=== PATIENT | male | born 1955 | race Caucasian/White ===

== ENCOUNTER 2017-12-25 14:22 | Emergency (ER) | payer BC ==
[~2017-12-25] VITALS: Ht 177.8 cm; Wt 95.8 kg
[~2017-12-25 14:22] MED LIST: ALFU10TA2 PO; ASPI81TA28 PO; CHOL1000 PO; HYG/25 PO; LISI40TA PO; MULT-106 PO; RXC5 PO; SENNTAB23 PO; SITA50TA5 PO; TURM1CAP4 PO
[2017-12-25] MEDS ORDERED: MoRPHine SULFATE 10 MG/ML CARP/VIAL IV STA ×2 (14:28→16:18)
[2017-12-25] MEDS ORDERED: SODIUM CHLORIDE 0.9% 1000ML 1,000 ML IV STA (14:28)
[2017-12-25 14:30] VITALS: TEMP 36.9; Ht 177.8 cm; Wt 95.8 kg
--- NOTE | 2017-12-25 14:42 | EMERGENCY ROOM VISIT NOTE ---
History Report prepared by Chauncey: [place] Under the Supervision of: Dr. Spencer Martinez M.D. First contact with patient: 14:26 Chief Complaint: BACK PAIN Stated Complaint: BACK PAIN History of Present Illness The patient is a 62 year old male who presents to the Emergency Room with complaints of severe back pain that began this morning. The patient reports going through back surgery for spinal stenosis December 16 of this year and has been progressively recovering until today when the pain worsened. The pain worsened while sitting on the couch and then radiated to the anterior aspect of the proximal legs. The patient states he has not done anything out of the ordinary and has been walking normally as well. The patient says he takes 1 oxycodone every 4 hours but they do not help much. The last oxycodone he took was at 1000 today. The patient's surgeon is Dr. Aaron. The patient denies nausea , vomiting, diarrhea, fevers, chills, weakness, numbness, tingling, or problems with bowel movements. Source of History: patient Onset: This morning Position: back Symptom Intensity: severe Timing: worsening Associated Symptoms: No fevers, No chills, No chest pain, No nausea, No vomiting, No diarrhea, No urinary symptoms, No weakness, No numbness Review of Systems See HPI for pertinent positives and negatives. A total of ten systems were reviewed and were otherwise negative. Past Medical & Surgical Medical Problems: (1) Blood glucose elevated (2) Lumbar stenosis with neurogenic claudication Family History Patient reports no known family medical history. Social History Smoking Status: Never Smoker Marital Status: Housing Status: lives with family Occupation Status: employed Current/Historical Medications Scheduled Aspirin (Samy Aspirin Ec Low Dose), 81 MG PO DAILY Cyclobenzaprine Hcl (Flexeril), 10 MG PO HS Lisinopril (Prinivil), 40 MG PO DAILY Sitagliptin-Metformin Hcl (Janumet), 1 TAB PO BID Scheduled PRN Acetaminophen (Tylenol), 500 MG PO UD PRN for Pain Oxycodone HCl (Oxycodone HCl), 5 MG PO Q4 PRN for Moderate Pain Oxycodone Ir (Roxicodone Ir), 1-2 TAB PO Q4H PRN for Severe Pain Allergies Coded Allergies: No Known Allergies (Unverified , 12/25/17) Physical Exam Vital Signs Date Time Temp Pulse Resp B/P (MAP) Pulse Ox O2 Delivery O2 Flow Rate FiO2 12/25/17 19:45 98 15 138/80 97 12/25/17 17:55 104 15 144/89 96 Room Air 12/25/17 15:55 105 10 168/91 95 Room Air 12/25/17 15:00 107 12/25/17 14:57 105 12 176/93 95 Room Air 12/25/17 14:30 36.9 110 18 165/94 100 Room Air Physical Exam GENERAL: Awake, alert, uncomfortable, in NAD. HENT: Normocephalic, atraumatic. Oropharynx unremarkable. Mucous membranes are dry. EYES: Normal conjunctiva. Sclera non-icteric. NECK: Supple. No nuchal rigidity. FROM. No JVD. RESPIRATORY: Clear to auscultation. CARDIAC: Regular rate, normal rhythm. Extremities warm and well perfused. Pulses equal. ABDOMEN: Soft, non-distended. No tenderness to palpation. No rebound or guarding. No masses. RECTAL: Deferred. MUSCULOSKELETAL: Chest examination reveals no tenderness. There is no CVA tenderness to palpation. No joint edema. Incision site clean, dry, and intact without erythema or warmth. No crepitus. Mild edema with mild ttp, which patient and report has been the same since his surgery. LOWER EXTREMITIES: Calves are equal size bilaterally and non-tender. No edema. No discoloration. NEURO: Normal sensorium. No sensory or motor deficits noted. 5/5 strength and SILT bilaterally. SKIN: No rash or jaundice noted. Medical Decision & Procedures ER Provider Diagnostic Interpretation: Radiology results as stated below per my review and radiologist interpretation: ABDOMEN AND PELVIS CT WITH IV CONTRAST HISTORY: Acute low back pain with history of recent lumbar spine fusion s/p recent lumber decompression/fusion, pain, r/o infection TECHNIQUE: Multiaxial CT images of the abdomen and pelvis were performed following the use of intravenous contrast. A dose lowering technique was utilized adhering to the principles of ALARA. COMPARISON STUDY: CT lumbar spine of same day, spot fluoroscopic images of the lumbar spine 12/16/2017. FINDINGS: Mild dependent subsegmental bibasilar atelectasis. No pneumatosis or pneumoperitoneum. Imaged inferior cardiac chambers are unremarkable. Gallbladder is mildly distended. The liver, spleen, pancreas and right adrenal gland are unremarkable. Mild thickening about the left adrenal gland. Hypodense lesions about the bilateral kidneys measuring up to 12 mm in the right suggest probable renal cysts. There is a 10 mm hypodense lesion about the inferior pole right kidney with internal linear complexity suggesting a possible enhancing internal septation, image 218 series 3. Mild nonspecific bilateral perinephric stranding. Mild circumferential wall thickening of the bladder. Prostamegaly. Small fat filled left inguinal hernia. Moderate calcification of the aorta without aneurysm. IVC is unremarkable. No pathologically enlarged lymph nodes. No bowel obstruction or focal bowel wall thickening. Moderate stool volume about the rectum. Mild layering free pelvic fluid within the dependent pelvis. Mild colonic diverticulosis without diverticulitis. Terminal ileum is unremarkable. The appendix is not definitively seen. No mesenteric inflammatory changes. Postoperative changes are redemonstrated compatible with recent laminectomy at L3 and L4. Additionally, posterior interbody amber and screw fusion hardware extends from L2-L5. Discectomy changes at L3-L4 and L4-L5. There is no evidence of hardware fracture or loosening. Fluid complex collection containing internal foci of air noted about the deep operative bed measuring up to 10.1 cm in length. IMPRESSION: 1. Postoperative changes of the lumbar spine with associated fluid collection, better characterized and described on CT lumbar spine of same day. 2. Trace free pelvic fluid of unknown etiology. 3. No bowel obstruction or focal bowel wall thickening. 4. Renal cysts with suggested complex cyst of the inferior pole right kidney measuring 10 mm. This could be further characterized with outpatient nonemergent CT renal protocol study. 5. Prostamegaly. Electronically signed by: Davidson Ellsworth M.D. 12/25/2017 6:01 PM Dictated Date/Time: 12/25/2017 5:52 PM LUMBAR SPINE WITHOUT HISTORY: 62 years-old Male s/p decopmpressin/fusion, pain acute low back pain with prior decompression/fusion of the lumbar spine COMPARISON: CT abdomen and pelvis of same day, lumbar spine spot fluoroscopic images 12/16/2017, lumbar spine MR 11/02/2017 TECHNIQUE: Multiple axial CT images of the lumbar spine were obtained without the use of IV contrast. A dose lowering technique was used consistent with the principals of JAMIE. FINDINGS: Postoperative changes are redemonstrated compatible with recent laminectomy at L3 and L4. Additionally, posterior interbody amber and screw fusion hardware extends from L2-L5. Discectomy changes at L3-L4 and L4-L5. There is no evidence of hardware fracture or loosening. Hardware appears appropriately positioned. No acute fracture or subluxation of the lumbar spine identified. Mild multilevel spondylitic spurring. Mild intervertebral disc space narrowing at T11-T12. Dilation of the central canal and neuroforamina is limited without the use of thecal contrast and also secondary to streak artifact from the aforementioned hardware. Imaged lung bases appear clear. No aortic aneurysm identified. Hypodense lesions about the right kidney suggests renal cysts. Subcutaneous stranding with deep tissue air is noted about the operative bed. Peripherally hyperdense fluid collection about the operative bed extending to the posterior epidural tissues measures up to approximately 4.6 x 8.9 x 10.1 cm containing scattered foci of internal air. There is a separate hypodense subcutaneous fluid collection at the level of L1 measuring approximately 3.1 x 2.0 x 3.0 cm on image 99 series 301. IMPRESSION: 1. Postoperative changes of the lumbar spine compatible with recent L3 and L4 laminectomy with discectomy changes at L3-L4 and L4-L5 and posterior interbody amber and screw fusion at L2-L5. Alignment is satisfactory without evidence of hardware complication. 2. Deep fluid collection about the operative bed containing internal foci of air measures up to 10.1 cm. This is suspicious for a postoperative abscess with seroma or hematoma additional considerations. Correlate with clinical exam and patient history. 3. No acute fracture or subluxation. The above report was generated using voice recognition software. It may contain grammatical, syntax or spelling errors. Electronically signed by: Davidson Ellsworth M.D. 12/25/2017 5:52 PM Dictated Date/Time: 12/25/2017 5:43 PM Laboratory Results 12/25/17 14:53 Red Blood Count 2.86, Mean Corpuscular Volume 86.7, Mean Corpuscular Hemoglobin 29.0, Mean Corpuscular Hemoglobin Concent 33.5, Mean Platelet Volume 9.8, Neutrophils (%) (Auto) 85.3, Lymphocytes (%) (Auto) 8.6, Monocytes (%) (Auto) 5.3, Eosinophils (%) (Auto) 0.3, Basophils (%) (Auto) 0.1, Neutrophils # (Auto) 9.78, Lymphocytes # (Auto) 0.98, Monocytes # (Auto) 0.61, Eosinophils # (Auto) 0.03, Basophils # (Auto) 0.01 12/25/17 14:53 Test 12/25/17 14:53 12/25/17 15:24 White Blood Count 11.46 K/uL (4.8-10.8) Red Blood Count 2.86 M/uL (4.7-6.1) Hemoglobin 8.3 g/dL (14.0-18.0) Hematocrit 24.8 % (42-52) Mean Corpuscular Volume 86.7 fL (80-100) Mean Corpuscular Hemoglobin 29.0 pg (25-34) Mean Corpuscular Hemoglobin Concent 33.5 g/dl (32-36) Platelet Count 332 K/uL (130-400) Mean Platelet Volume 9.8 fL (7.4-10.4) Neutrophils (%) (Auto) 85.3 % Lymphocytes (%) (Auto) 8.6 % Monocytes (%) (Auto) 5.3 % Eosinophils (%) (Auto) 0.3 % Basophils (%) (Auto) 0.1 % Neutrophils # (Auto) 9.78 K/uL (1.4-6.5) Lymphocytes # (Auto) 0.98 K/uL (1.2-3.4) Monocytes # (Auto) 0.61 K/uL (0.11-0.59) Eosinophils # (Auto) 0.03 K/uL (0-0.5) Basophils # (Auto) 0.01 K/uL (0-0.2) RDW Standard Deviation 40.3 fL (36.4-46.3) RDW Coefficient of Variation 12.6 % (11.5-14.5) Immature Granulocyte % (Auto) 0.4 % Immature Granulocyte # (Auto) 0.05 K/uL (0.00-0.02) Red Blood Cell Morphology Unremarkable Anion Gap 8.0 mmol/L (3-11) Est Creatinine Clear Calc Drug Dose 88.5 ml/min Estimated GFR () 94.1 Estimated GFR (Non- 81.2 BUN/Creatinine Ratio 15.1 (10-20) Calcium Level 8.6 mg/dl (8.5-10.1) Total Bilirubin 0.3 mg/dl (0.2-1) Direct Bilirubin 0.1 mg/dl (0-0.2) Aspartate Amino Transf (AST/SGOT) 23 U/L (15-37) Alanine Aminotransferase (ALT/SGPT) 31 U/L (12-78) Alkaline Phosphatase 61 U/L (45-117) Total Protein 6.3 gm/dl (6.4-8.2) Albumin 2.6 gm/dl (3.4-5.0) Lipase 91 U/L (73-393) Urine Color YELLOW Urine Appearance CLEAR (CLEAR) Urine pH >= 9.0 (4.5-7.5) Urine Specific [place] 1.019 (1.000-1.030) Urine Protein NEG (NEG) Urine Glucose (UA) TRACE (NEG) Urine Ketones NEG (NEG) Urine Occult Blood NEG (NEG) Urine Nitrite NEG (NEG) Urine Bilirubin NEG (NEG) Urine Urobilinogen NEG (NEG) Urine Leukocyte Esterase NEG (NEG) Urine WBC (Auto) 1-5 /hpf (0-5) Urine RBC (Auto) 0-4 /hpf (0-4) Urine Hyaline Casts (Auto) 1-5 /lpf (0-5) Urine Epithelial Cells (Auto) 0-5 /lpf (0-5) Urine Bacteria (Auto) NEG (NEG) Laboratory results reviewed by me Medications Administered Medications (Trade) Dose Ordered Sig/Bharati Route Start Time Stop Time Status Last Admin Dose Admin Sodium Chloride 1,000 ml @ 999 mls/hr Q1H1M STAT IV 12/25/17 14:28 12/25/17 15:28 DC 12/25/17 14:28 999 MLS/HR Morphine Sulfate (MoRPHine SULFATE INJ) 6 mg NOW STAT IV 12/25/17 14:28 12/25/17 14:36 DC 12/25/17 14:43 6 MG Morphine Sulfate (MoRPHine SULFATE INJ) 8 mg NOW STAT IV 12/25/17 16:18 12/25/17 16:19 DC 12/25/17 16:25 8 MG Acetaminophen (Tylenol Tab) 1,000 mg NOW STAT PO 12/25/17 19:20 12/25/17 19:22 DC 12/25/17 19:30 1,000 MG Oxycodone HCl (Roxicodone Immediate Rel Tab) 10 mg NOW STAT PO 8/24/18 19:20 12/25/17 19:22 DC 12/25/17 19:30 10 MG Ketorolac Tromethamine (Toradol Inj) 15 mg NOW STAT IV 12/25/17 19:20 12/25/17 19:22 DC 12/25/17 19:31 15 MG ED Course 1427: The patient was evaluated in room B6. A complete history and physical exam was performed. Medical Decision I reviewed the patient's past medical history, medications, and the nursing notes as described above. Differential diagnosis: Etiologies such as musculoskeletal, disc herniation, fracture, aortic disease, metastatic disease, cord compression, discitis, infection, renal colic, gastrointestinal, acute exacerbation of chronic back pain, sciatica, cauda equina, as well as others were entertained. The patient is a 62 y/o gentleman with a pmhx of spinal stenosis s/p decompression/fusion on 12/[address] Rock presents to the emergency department with worsening back pain that occurred today when he was sitting on the cough per HPI. The patient denies any f/c, n/v, weakness, numbness, urinary retention, or bowel incontinence. He reports he has been maintaining his daily walking routine as recommended but denies any over exertion. On arrival the patient is uncomfortable but in NAD, AFVSS. 5/5 strength and SILT BLE. Incision site clean, dry, and intact without erythema or warmth. No crepitus. Mild edema , which patient and report has been the same since his surgery. WBC 11.4 nonspecific. H/H at recent baseline and normocytic. CT demonstrates deep fluid collection adjacent to operative bed containing internal foci of air measures up to 10.1 cm with ddx of postoperative abscess vs seroma vs hematoma. Patient reassessed and feeling improved after IVF hydration and morphine, able to ambulated and sit in chair. Case d/w Dr. Rock, patient's surgeon, and we agree that given the patient is afebrile without systemic symptoms, CT findings unlikely to be infectious at this time. We agree to optimize pain control including one time dose of toradol. Patient will f/u next week as scheduled. Strict return instructions provided. Findings and plan for follow-up reviewed with patient. Patient agreeable and d/c'd per discharge instructions. Medication Reconcilliation Current Medication List: was personally reviewed by me Blood Pressure Screening Patient's blood pressure: Elevated blood pressure Blood pressure disposition: Referred to PCP Consults Time Called: 1924 Consulting Physician: Dr. Rock, Ortho-spine Returned Call: 1924 Imaging reviewed and we agree for continued pain control and outpatient f/u. Strict return instructions for fevers/systemic symptoms. Impression Primary Impression: Lumbar surgical wound fluid collection Additional Impression: Lumbar pain Scribe Attestation The scribe's documentation has been prepared under my direction and personally reviewed by me in its entirety. I confirm that the note above accurately reflects all work, treatment, procedures, and medical decision making performed by me. Departure Information Dispostion Home / Self-Care Prescriptions Oxycodone Ir (Roxicodone Ir) 5 Mg Tab 1-2 TAB PO Q4H Y for Severe Pain, #20 TAB Prov: Spencer Martinez M.D. 12/25/17 Referrals Marcos Roca M.D. (PCP) Adalid Rock,D.O. Patient Instructions Fusion Spinal Posterior Lumbar, Fusion Spinal Recovery, [facility] Additional Instructions Please follow up with your spine surgeon next week as scheduled for re- evaluation. Your pain is likely related to post-operative changes and related fluid collection. Increase your oxycodone to 5-10mg every 4-6 hours as needed for breakthrough pain. Acetaminophen every 4-6 hours scheduled for baseline pain relief. Stool softeners to avoid narcotic associated constipation. Return to the emergency department for worsening symptoms as described in the accompanying instructions such as fevers, worsening pain, or weakness. Problem Qualifiers
[2017-12-25] MEDS ORDERED: OPTIRAY 320 IV PRN (14:45)
[2017-12-25 15:09] LABS: BASO % 0.1 %; BASO ABS # 0.01 K/uL (0-0.2); EOS % 0.3 %; EOS ABS # 0.03 K/uL (0-0.5); HEMATOCRIT 24.8 % (42-52); HEMOGLOBIN 8.3 g/dL (14.0-18.0); IG# 0.05 K/uL (0.00-0.02); LYMPH % 8.6 %; LYMPH ABS # 0.98 K/uL (1.2-3.4); MEAN CELL VOLUME 86.7 fL (80-100); MEAN CORPUSCULAR HGB CONC 33.5 g/dl (32-36); MEAN PLATELET VOLUME 9.8 fL (7.4-10.4); MONO % 5.3 %; MONO ABS # 0.61 K/uL (0.11-0.59); NEUT % 85.3 %; NEUT ABS # 9.78 K/uL (1.4-6.5); PLATELET COUNT 332 K/uL (130-400); RED CELL DISTRIBUTION WIDTH CV 12.6 % (11.5-14.5); RED CELL DISTRIBUTION WIDTH SD 40.3 fL (36.4-46.3); WHITE BLOOD COUNT 11.46 K/uL (4.8-10.8)
[2017-12-25] MEDS ORDERED: SITA50TA5 PO (15:23)
[2017-12-25] MEDS ORDERED: ACET-1256 PO (15:23)
[2017-12-25] MEDS ORDERED: CYCL10TA6 PO (15:23)
[2017-12-25] MEDS ORDERED: ASPI1TAB2 PO (15:23)
[2017-12-25] MEDS ORDERED: LISI40TA PO (15:23)
[2017-12-25] MEDS ORDERED: OXYC-609 PO (15:23)
[2017-12-25 15:25] LABS: ALBUMIN 2.6 gm/dl (3.4-5.0); CALCIUM 8.6 mg/dl (8.5-10.1); CREATININE 0.98 mg/dl (0.60-1.40); POTASSIUM 3.8 mmol/L (3.5-5.1); TOTAL PROTEIN 6.3 gm/dl (6.4-8.2)
--- NOTE | 2017-12-25 17:53 | DIAGNOSTIC IMAGING REPORT ---
LUMBAR SPINE WITHOUT HISTORY: 62 years-old Male s/p decopmpressin/fusion, pain acute low back pain with prior decompression/fusion of the lumbar spine COMPARISON: CT abdomen and pelvis of same day, lumbar spine spot fluoroscopic images 12/16/2017, lumbar spine MR 11/02/2017 TECHNIQUE: Multiple axial CT images of the lumbar spine were obtained without the use of IV contrast. A dose lowering technique was used consistent with the principals of ALARA. FINDINGS: Postoperative changes are redemonstrated compatible with recent laminectomy at L3 and L4. Additionally, posterior interbody amber and screw fusion hardware extends from L2-L5. Discectomy changes at L3-L4 and L4-L5. There is no evidence of hardware fracture or loosening. Hardware appears appropriately positioned. No acute fracture or subluxation of the lumbar spine identified. Mild multilevel spondylitic spurring. Mild intervertebral disc space narrowing at T11-T12. Dilation of the central canal and neuroforamina is limited without the use of thecal contrast and also secondary to streak artifact from the aforementioned hardware. Imaged lung bases appear clear. No aortic aneurysm identified. Hypodense lesions about the right kidney suggests renal cysts. Subcutaneous stranding with deep tissue air is noted about the operative bed. Peripherally hyperdense fluid collection about the operative bed extending to the posterior epidural tissues measures up to approximately 4.6 x 8.9 x 10.1 cm containing scattered foci of internal air. There is a separate hypodense subcutaneous fluid collection at the level of L1 measuring approximately 3.1 x 2.0 x 3.0 cm on image 99 series 301. IMPRESSION: 1. Postoperative changes of the lumbar spine compatible with recent L3 and L4 laminectomy with discectomy changes at L3-L4 and L4-L5 and posterior interbody amber and screw fusion at L2-L5. Alignment is satisfactory without evidence of hardware complication. 2. Deep fluid collection about the operative bed containing internal foci of air measures up to 10.1 cm. This is suspicious for a postoperative abscess with seroma or hematoma additional considerations. Correlate with clinical exam and patient history. 3. No acute fracture or subluxation. The above report was generated using voice recognition software. It may contain grammatical, syntax or spelling errors. Electronically signed by: Davidson Ellsworth M.D. 12/25/2017 5:52 PM Dictated Date/Time: 12/25/2017 5:43 PM
--- NOTE | 2017-12-25 18:02 | DIAGNOSTIC IMAGING REPORT ---
ABDOMEN AND PELVIS CT WITH IV CONTRAST HISTORY: Acute low back pain with history of recent lumbar spine fusion s/p recent lumber decompression/fusion, pain, r/o infection TECHNIQUE: Multiaxial CT images of the abdomen and pelvis were performed following the use of intravenous contrast. A dose lowering technique was utilized adhering to the principles of ALARA. COMPARISON STUDY: CT lumbar spine of same day, spot fluoroscopic images of the lumbar spine 12/16/2017. FINDINGS: Mild dependent subsegmental bibasilar atelectasis. No pneumatosis or pneumoperitoneum. Imaged inferior cardiac chambers are unremarkable. Gallbladder is mildly distended. The liver, spleen, pancreas and right adrenal gland are unremarkable. Mild thickening about the left adrenal gland. Hypodense lesions about the bilateral kidneys measuring up to 12 mm in the right suggest probable renal cysts. There is a 10 mm hypodense lesion about the inferior pole right kidney with internal linear complexity suggesting a possible enhancing internal septation, image 218 series 3. Mild nonspecific bilateral perinephric stranding. Mild circumferential wall thickening of the bladder. Prostamegaly. Small fat filled left inguinal hernia. Moderate calcification of the aorta without aneurysm. IVC is unremarkable. No pathologically enlarged lymph nodes. No bowel obstruction or focal bowel wall thickening. Moderate stool volume about the rectum. Mild layering free pelvic fluid within the dependent pelvis. Mild colonic diverticulosis without diverticulitis. Terminal ileum is unremarkable. The appendix is not definitively seen. No mesenteric inflammatory changes. Postoperative changes are redemonstrated compatible with recent laminectomy at L3 and L4. Additionally, posterior interbody amber and screw fusion hardware extends from L2-L5. Discectomy changes at L3-L4 and L4-L5. There is no evidence of hardware fracture or loosening. Fluid complex collection containing internal foci of air noted about the deep operative bed measuring up to 10.1 cm in length. IMPRESSION: 1. Postoperative changes of the lumbar spine with associated fluid collection, better characterized and described on CT lumbar spine of same day. 2. Trace free pelvic fluid of unknown etiology. 3. No bowel obstruction or focal bowel wall thickening. 4. Renal cysts with suggested complex cyst of the inferior pole right kidney measuring 10 mm. This could be further characterized with outpatient nonemergent CT renal protocol study. 5. Prostamegaly. Electronically signed by: Davidson Ellsworth M.D. 12/25/2017 6:01 PM Dictated Date/Time: 12/25/2017 5:52 PM
[2017-12-25] MEDS ORDERED: ACETAMINOPHEN 500 MG TAB PO STA (19:20)
[2017-12-25] MEDS ORDERED: OXYCODONE HCL IR 5 MG TAB (IMMEDIATE RELEASE) PO STA (19:20)
[2017-12-25] MEDS ORDERED: KETOROLAC TROMETHAMINE 30 MG/ML VIAL IV STA (19:20)
[2017-12-25] MEDS ORDERED: OXYC-90 PO (19:27)
[2017-12-25 19:45] VITALS: BP 138/80; PULSE 98; O2SAT 97
[2017-12-27] MEDS ORDERED: MULT-662 PO (14:46)
[2017-12-27] MEDS ORDERED: HYG25 PO (14:46)
[2017-12-27] MEDS ORDERED: MAGN200T3 PO (14:46)
[2017-12-27] MEDS ORDERED: ALFU10TA2 PO (14:46)
[2017-12-27] MEDS ORDERED: PRED20TA PO (16:03)
== END 2017-12-25 19:45 | disposition home or self-care (01) ==
LOC: EDBD 14:22 → C.EDB 14:23
DX: T81.89XA Other complications of procedures, not elsewhere classified, initial encounter (principal); X58.XXXA Exposure to other specified factors, initial encounter; M54.5 Low back pain; Z79.82 Long term (current) use of aspirin

== ENCOUNTER 2019-03-23 09:31 | Inpatient (IN) ==
--- NOTE | 2019-03-08 12:03 | PAT Medication Instructions ---
Medication Instructions Date of Service March 08, 2019 Home Medications Medication Instructions Recorded chlorthalidone 25 mg tablet 12.5 mg PO QAM #90 tab 12/27/18 metoprolol tartrate 25 mg tablet 12.5 mg PO BID #60 tab 12/28/18 aspirin 81 mg tablet,delayed release 81 mg PO QAM alfuzosin 10 mg PO QAM sitagliptin-metformin 1 tab PO BID chlorthalidone 25 mg tablet 12.5 mg PO QAM metoprolol tartrate 25 mg tablet 12.5 mg PO BID magnesium 250 mg (as magnesium oxide) tablet 250 mg PO QAM multivitamin tablet 1 tab PO QAM ASK your prescriber and surgeon aspirin 81 mg tablet,delayed release 81 mg PO QAM DO NOT take the morning of surgery sitagliptin-metformin 1 tab PO BID chlorthalidone 25 mg tablet 12.5 mg PO QAM magnesium 250 mg (as magnesium oxide) tablet 250 mg PO QAM multivitamin tablet 1 tab PO QAM Take morning of surgery With a small sip of water, OTHERWISE NOTHING TO EAT OR DRINK AFTER MIDNIGHT: alfuzosin 10 mg PO QAM metoprolol tartrate 25 mg tablet 12.5 mg PO BID Take evening before surgery sitagliptin-metformin 1 tab PO BID metoprolol tartrate 25 mg tablet 12.5 mg PO BID Other Notes If you have any questions please call us at [phone] or [phone] or [phone] or [phone]
--- NOTE | 2019-03-09 09:03 | Anesthesiology Consultation ---
Date of Service March 09, 2019 Assessment & Plan (1) Encounter for pre-operative examination: - Awaiting review preop testing (labs). - Surgery was originally scheduled for 12/29/18. Preop EKG revealed ST/TWA, consider inferior ischemia. Patient was scheduled for DSE by PCP but unable to be performed due to resting systolic BP in the 200's. Echo was markedly abnormal. Patient subsequently had metoprolol added for better BP control and had unremarkable exercise stress 01/2019. Per patient, monitoring BP's at home closely with baseline in the 130's/80's on current regimen. Note faxed to PCP regarding optimization. Awaiting optimization response from PCP ([facility]). - Check BSG AM DOS - ASA instructions per surgeon/prescriber. Chart Review Chart Review: Patient seen in Pre Admission Testing Teaching & Discussion Pre-Anesthesia Teaching/Discussion Notes: Instructed NPO after midnight before surgery,except medications with 15 cc of water. Medication instructions provided according to the PAT guidelines. History Surgery Operation Date: 03/23/19 10:25 Proposed Procedures p Posterior Fusion Instrumentation - Adalid Rock DO Height/Weight Height: 5 ft 10 in Weight: 98.6 kg Allergies Allergy/AdvReac Type Severity Reaction Status Date / Time No Known Drug Allergies Allergy Unknown Verified 03/03/19 10:03 Medications Home Medications Medication Instructions Recorded Confirmed Last Taken aspirin 81 mg tablet,delayed 81 mg PO QAM #90 tab 12/10/18 03/03/19 Unknown release alfuzosin 10 mg PO QAM 12/20/18 03/03/19 Unknown sitagliptin-metformin 1 tab PO BID 12/20/18 03/03/19 Unknown chlorthalidone 25 mg tablet 12.5 mg PO QAM #90 tab 12/27/18 03/03/19 Unknown metoprolol tartrate 25 mg tablet 12.5 mg PO BID #60 tab 12/28/18 03/03/19 Unknown magnesium 250 mg (as magnesium 250 mg PO QAM tab 01/04/19 03/03/19 Unknown oxide) tablet multivitamin tablet 1 tab PO QAM 01/04/19 03/03/19 Unknown Past Medical History Medical History Hx of pyloric stenosis s/p surgical repair Type 2 diabetes mellitus NIDDM Sleep apnea inconclusive sleep study, no device prescribed Lumbar radiculopathy Dyslipidemia Carotid artery plaque Mild nonobstructive plaque noted on 2014 carotid doppler Anemia Hearing loss Chronic osteoarthritis Enlarged prostate with lower urinary tract symptoms (LUTS) Hypertension Obesity Exercise / Class Metabolic Activity II 4-5 Yardwork/Stairs/Walk up hill (one flight of stairs (no chest pain, no SOB)) Past Family History Family History Father Coronary heart disease Myocardial infarction Diabetes Heart disease Sister Family history of gallbladder disease FHx: diabetes mellitus Diabetes Other Family history of kidney stones Past Surgical History Surgical History History of gastric surgery For pyloric stenosis History of lithotripsy WITH CYSTOSCOPY/STENT History of lumbar fusion L2-L5 History of partial knee replacement LEFT Hx of colonoscopy X 3 Past Anesthesia History No Hx of Anesthesia Complications and No Family Hx of Anesthesia Complications History of PONV No Hx of PONV and No Hx of Motion Sickness Social History Smoking Status: Never smoker Do You Dip or Chew Tobacco: No Hx Alcohol Use: No Hx Substance Use: No Review of Systems Rare reflux. Patient denies chest pain, shortness of breath, dyspnea on exertion, cough, wheezing, palpitations. Physical Exam Vital Signs VITALS BP 142/82 P 74 TEMP 98.1 SP02 98%RA RESP 18 PHYSICAL Full neck and c-spine range of motion. Full TMJ range of motion. TMD 3.5 finger breaths Mallampati Score 3 Dentition: missing molars, crowns on molars Lungs: clear throughout to auscultation Cardiac: regular rate and rhythm, no murmurs noted Spine: normal Carotid arteries: negative bruit Extremities: no edema Testing Laboratory Results 03/09/19 09:27 03/09/19 09:27 PT 10.9 Seconds (9.0-12.0) 03/09/19 09:27 INR 1.1 (0.9-1.1) 03/09/19 09:27 APTT 23.1 Seconds (21.0-31.0) 03/09/19 09:27 Hemoglobin A1c 7.3 % (4.5-5.6) H 03/09/19 09:27 Urine Color Yellow 03/09/19 09:27 Urine Appearance Clear (Clear) 03/09/19 09:27 Urine pH 6.0 (4.5-7.5) 03/09/19 09:27 Ur Specific [place] 1.018 (1.000-1.030) 03/09/19 09:27 Urine Protein Negative (Negative) 03/09/19 09:27 Urine Glucose (UA) Negative (Negative) 03/09/19 09:27 Urine Ketones Negative (Negative) 03/09/19 09:27 Urine Nitrite Negative (Negative) 03/09/19 09:27 Ur Leukocyte Esterase Negative (Negative) 03/09/19 09:27 Blood Type A Positive 03/09/19 09:27 Antibody Screen NEGATIVE 03/09/19 09:27 Electrocardiogram Date: 12/23/18 [address]R [address]/TWA, consider inferior ischemia. *Subsequent stress test done 01/2019* Chest X-Ray Date: 12/23/18 Findings: + NAD Echocardiogram Date: 12/24/18 EF: 45-50% Patient scheduled for dobutamine stress echo. Resting echo performed due to resting hypertension with systolic pressures in the 200s. Normal LV size, mild concentric LVH. Severe inferolateral hypokinesis. Mild base to mid inferior hypokinesis. Normal RV size and function. No significant valvular pathology. No prior studies for comparison. *Metoprolol added for better BP control. Subseq uent stress test done 01/2019* Stress Test Date: 01/25/19 Type: exercise Normal stress ECHO without evidence of inducible ischemia. Mild cLVH. 97% MPHR. 7.0 METS. Other Testing Carotid Doppler 2014 FINDINGS: The blood pressure measured 175/106 when using the right arm and 192/94 when using the left arm. The grayscale images demonstrate mild atherosclerotic plaque within the bilateral common carotid and internal carotid arteries. The velocities are normal. The peak systolic velocity within the right internal carotid artery was 50 cm per second and the peak systolic velocity within the left internal carotid artery was 57 cm per second. The systolic ratios between the internal to common carotid arteries were normal. Flow within both vertebral arteries was antegrade. Mild atherosclerotic plaque without evidence of stenosis. Significantly elevated blood pressure, as detailed above.
[2019-03-09 09:58] LABS: Eosinophils # (auto) 0.08 K/uL (0-0.5); Eosinophils % (auto) 1.2 %; Hemoglobin 12.9 g/dL (14.0-18.0); Immature Granulocytes # (auto) 0.01 K/uL (0.00-0.02); Immature Granulocytes % (auto) 0.1 %; Lymphocytes # (auto) 1.17 K/uL (1.2-3.4); Lymphocytes % (auto) 17.3 %; Mean Corpuscular Hgb Conc 33.1 g/dL (32-36); Mean Corpuscular Volume 87.6 fL (80-100); Mean Platelet Volume 10.5 fL (7.4-10.4); Monocytes # (auto) 0.39 K/uL (0.11-0.59); Monocytes % (auto) 5.8 %; Neutrophils # (auto) 5.11 K/uL (1.4-6.5); Neutrophils % (auto) 75.6 %; Platelet Count 190 K/uL (130-400); RDW Coefficient of Variation 13.5 % (11.5-14.5); RDW Standard Deviation 43.1 fL (36.4-46.3); Red Blood Count 4.45 M/uL (4.7-6.1); White Blood Count 6.76 K/uL (4.8-10.8)
[2019-03-09 10:02] LABS: Appearance Urine Clear (Clear); Bilirubin Urine Negative (Negative); Blood Urine Negative (Negative); Color Urine Yellow; Glucose Urine UA Negative (Negative); Ketones Urine Negative (Negative); Leukocyte Esterase Urine Negative (Negative); Nitrite Urine Negative (Negative); Protein Urine Negative (Negative); Specific Gravity Urine 1.018 (1.000-1.030); Urobilinogen Urine Negative (Negative)
[2019-03-09 10:05] LABS: BUN Creatinine Ratio 16.9 (10-20); Calcium 9.5 mg/dl (8.5-10.1); Creatinine Clr Calc Pharmacy 66.7 ml/min; Est GFR (African American) 66.4; Est GFR (Non-African American) 57.3; Potassium 4.6 mmol/L (3.5-5.1)
[2019-03-09 10:11] LABS: INR 1.1 (0.9-1.1); Partial Thromboplastin Ratio 0.9; Partial Thromboplastin Time 23.1 Seconds (21.0-31.0); Prothrombin Time 10.9 Seconds (9.0-12.0)
[2019-03-09 10:35] LABS: Estimated Average Glucose 163 mg/dl; Hemoglobin A1C 7.3 % (4.5-5.6)
[~2019-03-23 09:31] MED LIST changes: -ALFU10TA2 PO; -ASPI81TA28 PO; -CHOL1000 PO; -HYG/25 PO; -LISI40TA PO; +LR 15ML/HR IV SCH; -MULT-106 PO; -RXC5 PO; -SENNTAB23 PO; -SITA50TA5 PO; -TURM1CAP4 PO
[2019-03-23] MEDS ORDERED: GABAPENTIN 300 MG CAP ONE (10:35)
[2019-03-23] MEDS ORDERED: ACETAMINOPHEN 500 MG TAB ONE (10:35)
[2019-03-23] MEDS ORDERED: CeleBREX 200 MG CAP ONE (10:35)
[2019-03-23] MEDS ORDERED: CEFAZOLIN 2,000 MG/15 ML IV PUSH IV ONE (10:36)
--- NOTE | 2019-03-23 12:53 | History & Physical Report ---
Date of Service March 23, 2019 Assessment & Plan (1) Neurogenic claudication due to lumbar spinal stenosis: Decompression fusion L5-S1 hardware removal L2-L5 Present on Admission?: Yes History of Present Illness Chief Complaint: Back and leg pain Primary Care Provider: RICH Jc This is a 63-year-old male who presents with chronic persistent back and leg pain. After failing extensive course of nonoperative care is here for surgical intervention. Allergies Allergy/AdvReac Type Severity Reaction Status Date / Time No Known Drug Allergies Allergy Unknown Verified 03/23/19 10:04 Home Medications Home Medications Medication Instructions Recorded Confirmed Type aspirin 81 mg tablet,delayed 81 mg PO QAM #90 tab 12/10/18 03/23/19 History release alfuzosin 10 mg PO QAM 12/20/18 03/23/19 History metoprolol tartrate 25 mg tablet 12.5 mg PO BID #60 tab 12/28/18 03/23/19 Rx magnesium oxide 250 mg (as 250 mg PO QAM tab 01/04/19 03/23/19 History magnesium oxide) tablet multivitamin 1 tab PO QAM 01/04/19 03/23/19 History lisinopril 20 mg tablet 20 mg PO DAILY #30 tab 03/17/19 03/23/19 Rx sitagliptin 50 mg-metformin 1,000 1 tab PO BID 30 Days #60 tab 03/17/19 03/23/19 Rx mg tablet Past Med/Surg History Family History Father Coronary heart disease Myocardial infarction Diabetes Heart disease Sister Family history of gallbladder disease FHx: diabetes mellitus Diabetes Other Family history of kidney stones Social History Preferred Language: [place] Communication Ability: Effective Visual Impairment: No Limitations Hearing Ability: Normal 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 Beliefs That Will Affect Care: None marital status: Current Living Situation: Spouse current occupational status: retired Other Information That Helps Us Care for You: No Feels Safe at Home: Yes Safety Concerns: Feels Safe At This Time Smoking Status: Never smoker Do You Dip or Chew Tobacco: No ; Second Hand Exposure: Yes (WHEN HE WAS WORKING) ; Hx Alcohol Use: No Hx Substance Use: No Childhood Exposure to Second-Hand Smoke: No Dental Care, Regularly: Yes Physical Activity Frequency: Daily Physical Activity Frequency Comment: twice daily walking Seatbelt Use: sometimes Physical Exam Physical Exam: Patient alert and oriented neurologically intact. Results & Data Vital Signs (Past 12 Hours) Vital Signs Temp Pulse Resp BP Pulse Ox 03/23/19 10:11 37 C 80 20 155/90 H 98
[2019-03-23] MEDS ORDERED: BUPIVACAINE/EPINEPHRINE 0.25% 1:200,000 30 ML VIAL ONE (13:09)
[2019-03-23] MEDS ORDERED: BACITRACIN INJ 50,000 UNIT VIAL ONE (13:09)
[2019-03-23] MEDS ORDERED: HYDROmorphone INJ 2 MG/ML SYR/VIAL ONE (13:14)
[2019-03-23] MEDS ORDERED: fentaNYL citrate 100 MCG/2 ML VIAL ONE ×4 (13:16→14:43)
[2019-03-23] MEDS ORDERED: MIDAZOLAM HCL 1 MG/ML 2ML VIAL ONE (13:16)
[2019-03-23] MEDS ORDERED: ONDANSETRON INJ 2 MG/ML 2 ML VIAL ONE (14:12)
[2019-03-23] MEDS ORDERED: NEOSTIGMINE METHYLSULFATE 1 MG/ML 10ML VIAL ONE (14:12)
[2019-03-23] MEDS ORDERED: GLYCOPYRROLATE 0.2 MG/ML VIAL ONE (14:12)
[2019-03-23] MEDS ORDERED: DEXAMETHASONE SOD INJ 4 MG/ML VIAL ONE (14:12)
[2019-03-23] MEDS ORDERED: PROPOFOL IV EMULSION 10 MG/ML 20 ML VIAL IV ONE (14:12)
[2019-03-23] MEDS ORDERED: LIDOCAINE HCL 2% 2 ML VIAL/AMP(20MG/ML) INFIL ONE (14:12)
[2019-03-23] MEDS ORDERED: PHENYLEPHRINE 100MCG/ML 5ML SYR ONE (14:12)
[2019-03-23] MEDS ORDERED: LARYING-O-JET KIT (LTA) ONE (14:12)
[2019-03-23] MEDS ORDERED: ROCURONIUM BROMIDE 10 MG/ML 5 ML VIAL ONE (14:12)
[2019-03-23] MEDS ORDERED: ePHEDrine sulfate 50 MG/ML SYR ONE (14:12)
[2019-03-23] MEDS ORDERED: ALBUMIN HUMAN 5% 12.5 GM/250 ML VIAL IV ONE ×2 (14:42→16:07)
--- NOTE | 2019-03-23 16:22 | Operative Report ---
Post Operative Report Pre & Post Diagnosis Operation Date: 03/23/19 11:45 Pre-Op Diagnosis: Spinal Stenosis, Lumbar Region with Neurogenic Claudication Post-Op Diagnosis: Spinal Stenosis, Lumbar Region with Neurogenic Claudication I identified the patient and participated in the time-out.: Yes Procedure Operation Date: 03/23/19 11:45 Actual Procedures #1 removal of posterior segmental instrumentation L2-3 L3-4 L4-5. #2 expiration of fusion L2-L5. #3 lumbar decompression bilateral medial facetectomies and foraminotomies L5-S1. #4 posterior spinal fusion L5-S1 per #5 placement posterior instrumentation L5-S1 per #6 interbody fusion L5-S1. #7 placement of titanium 12 x 26 mm cage at L5-S1. #8 placement of locally harvested morselized autograft in the posterior lateral gutters. #9 placement infuse collagen sponge, master graft in the posterior lateral gutters and ostial amp and interbody space. Surgeon Adalid Rock, DO Marriage Counselor Juanis Cheney Estimated Blood Loss 1,000 Findings See Below Patient required removal of significant overgrowth of bone over the implants. This created significant blood loss of excess 1000 cc and a marked difficulty with the procedure at at least 40% increase in operative time. Specimens None Indications This is a 63-year-old male well-known to the presents with above-mentioned diagnosis after failing extensive course of nonoperative care like to undergo the above-mentioned procedure. Description of Procedure Patient was met with identified and informed consent obtained. Patient was then taken to the operative suite underwent intubation placed in a prone position on the Huan table on top of the Siddhartha frame. All bony prominences well-padded eyes inspected to ensure no external pressure placed upon but this point the lumbar spine was prepped and draped in the normal sterile fashion. Sharp di ssection with the assistance pericardial form down to and exposing the instrumentation from L2-L5 bilaterally as well as the remaining lamina L5 and sacral ala. Then proceed remove the hardware at L2 L3-L4-L5 bilaterally exploring the fusion mass noting it to be intact. There was significant bony overgrowth leading to significant blood loss in order to remove the instrumentation. Then performed a complete laminectomy of L5 including medial facetectomies and foraminotomies addressing facet cyst at L5-S1 the right. Pedicle fusion and placed in L5 and S1 levels bilaterally with assistance of fluoroscopy and the probably size amber placed by way of a transforaminal approach on the right complete discectomy was performed endplates curetted to subcortical being bone and a 12 x 26 mm titanium cage filled with ostium bone graft tapped in position. Rods and locked in final position bilaterally. The transverse processes of L5 and the sacral ala bur to subcortical being bone. Infuse collagen sponge master graft and local autograft was placed in the posterior lateral gutters. 15 round ANDRES drain inserted. The incision was then closed with 1 Vicryl in the fascia 2-0 Vicryl subcutaneously for Monocryl for final skin closure. Steri-Strip sterile dressings placed. Patient will continue to PACU stable condition. Please note Juanis Cheney was present throughout the entire procedure involved the patient positioning complex portions of the surgery and final skin closure. Lastly spinal cord monitoring was utilized throughout the procedure no changes noted. I attest to the content of the Intraoperative Record and any orders documented therein. Any exceptions are noted below.
[2019-03-23 16:24] LABS: Hematocrit (blood only) 32.3 % (42-52); Hemoglobin 10.9 g/dL (14.0-18.0)
[2019-03-23] MEDS ORDERED: FLOSEAL HEMOSTATIC MATRIX 10ML TOP ONE (16:38)
[2019-03-23 16:50] LABS: iSTAT Creatinine 1.3 mg/dl (0.6-1.3); iSTAT Hemoglobin 10.9 g/dl (14.0-18.0); iSTAT Ionized Calcium 1.16 mmol/l (1.12-1.32); iSTAT Potassium 3.9 mEq/L (3.3-5.0)
[2019-03-23] MEDS ORDERED: ATROPINE SULFATE 0.1 MG/ML 10ML SYR IV PRN (16:57)
[2019-03-23] MEDS ORDERED: fentaNYL citrate 100 MCG/2 ML VIAL IV PRN (16:57)
[2019-03-23] MEDS ORDERED: ePHEDrine sulfate 50 MG/ML AMP IV PRN (16:57)
[2019-03-23] MEDS ORDERED: ONDANSETRON INJ 2 MG/ML 2 ML VIAL IV PRN ×2 (16:57→17:32)
[2019-03-23] MEDS ORDERED: HYDROmorphone INJ 1 MG/ML SYRINGE IV PRN ×2 (16:57→17:32)
--- NOTE | 2019-03-23 17:03 | Fluoroscopy Report ---
FL lumbar spine 2-3V CLINICAL HISTORY: L5-S1 PSF, L2-L5 HARDWARE REMOVAL COMPARISON STUDY: None FLUOROSCOPY TIME: 20 seconds NUMBER OF FLUOROSCOPIC IMAGES: 3 FINDINGS: Image intensifier was utilized for a lumbar laminectomy and fusion IMPRESSION: Image intensifier was utilized for lumbar laminectomy and fusion The above report was generated using voice recognition software. It may contain grammatical, syntax or spelling errors. Electronically signed by: Jovani Stephen M.D. 03/23/2019 5:01 PM
--- NOTE | 2019-03-23 17:23 | Anesthesiology Progress Note ---
Date of Service March 23, 2019 Anesthesia Post Procedure Vital Signs Vital Signs: Temp Pulse Pulse Resp BP BP Pulse Ox 03/23/19 17:20 36.8 C 91 H 12 119/63 99 03/23/19 17:10 91 H 12 108/59 L 99 03/23/19 17:00 89 12 112/63 100 03/23/19 16:50 90 11 L 120/67 100 03/23/19 16:41 37.1 C 93 H 16 128/65 97 03/23/19 10:11 37 C 80 20 155/90 H 98 Pain Intensity Lower Back: Pain Intensity: 0 Transfer of Care Handoff Completed per policy Notes Mental Status: alert / awake / arousable and participated in evaluation Patient Amnestic to Procedure: Yes Nausea / Vomiting: adequately controlled Pain: adequately controlled Airway Patency, RR, SpO2: stable & adequate BP & HR: stable & adequate Hydration State: stable & adequate Anesthetic Complications: no major complications apparent and Pt Satisfied with anesthetic care
[2019-03-23] MEDS ORDERED: FAMOTIDINE 20 MG TAB PO PRN (17:32)
[2019-03-23] MEDS ORDERED: PROMETHAZINE HCL 12.5 MG in SODIUM CHLORIDE 0.9% 50 ML IV PRN (17:32)
[2019-03-23] MEDS ORDERED: DO NOT ADMINISTER FLU VACCINE PRN (17:32)
[2019-03-23] MEDS ORDERED: NALOXONE HCL 0.4 MG/1 ML VIAL/CARP IV PRN (17:32)
[2019-03-23] MEDS ORDERED: HYDROmorphone INJ 0.5 MG/0.5 ML SYR IV PRN (17:32)
[2019-03-23] MEDS ORDERED: SOD PHOSPHATE/SOD BIPHOSPHATE ENEMA 132 ML BTL PR PRN (17:32)
[2019-03-23] MEDS ORDERED: ONDANSETRON 4 MG OD TAB PO PRN (17:32)
[2019-03-23] MEDS ORDERED: DO NOT ADMINISTER PNEUMOCOCCAL VACCINE PRN (17:32)
[2019-03-23] MEDS ORDERED: ACETAMINOPHEN 1,000 MG/100 ML VIAL IV PRN (17:32)
[2019-03-23] MEDS ORDERED: LORazepam 0.5 MG TAB PO PRN (17:32)
[2019-03-23] MEDS ORDERED: MAGNESIUM HYDROXIDE SUSP 30 ML UDC PO PRN (17:32)
[2019-03-23] MEDS ORDERED: BISACODYL 10 MG SUPP PR PRN (17:32)
[2019-03-23] MEDS ORDERED: ALUMINUM/MAGNESIUM SUSP 30 ML UDC PO PRN (17:32)
[2019-03-23] MEDS ORDERED: OXYCODONE HCL IR 5 MG TAB (IMMEDIATE RELEASE) PO PRN (17:32)
[2019-03-23] MEDS ORDERED: METOCLOPRAMIDE HCL INJ 5 MG/ML 2 ML VIAL IV PRN (17:32)
[2019-03-23] MEDS ORDERED: LORazepam 0.5 MG/1 ML VIAL IV PRN (17:32)
[2019-03-23] MEDS ORDERED: GLUCAGON FOR INJ 1 MG VIAL SQ PRN (18:42)
[2019-03-23] MEDS ORDERED: CARBOHYDRATES FOR HYPOGLYCEMIA PO PRN (18:42)
[2019-03-23] MEDS ORDERED: GLUCOSE 40% GEL 15 GM TUBE PO PRN (18:42)
[2019-03-23] MEDS ORDERED: DEXTROSE 50% 50 ML SYRINGE IV PRN (18:42)
[2019-03-23] MEDS ORDERED: GLUCOSE 10 TABS/TUBE PO PRN (18:42)
--- NOTE | 2019-03-23 18:52 | Consultation ---
Date of Consultation March 23, 2019 Assessment & Plan (1) Status post lumbar surgery: Post op day# 0 S/P L5-S1 decompression fusion and removal hardware L2-L5 by Dr Rock EBL #1000ml Denies dizziness, SOB, CP -pain management per ortho -wound management per ortho -PT/OT as appropriate -DVT prophylaxis per ortho -incentive spirometry -Post op Hgb: 10.9 from 12.9 pre-op. Continue to monitor H&H for acute blood loss anemia (2) Hypertension: BP 110/67 -Hold lisinopril and reassess BP tomorrow morning -Continue metoprolol (3) Type 2 diabetes mellitus: A1c: 7.3 on 03/19/19 -Hold home Janumet -Novolog sliding scale per protocol (4) Anemia: Chronic anemia. Recent baseline Hgb: 12.9 -Monitor H&H as above DVT Prophylaxis -SCDs per ortho Follows with Dk VILLANUEVA for routine care Pt care coordinated with Dr Russo. See addendum History of Present Illness Reason for Consultation: Post op medical management Attending Physician: Adalid Rock, History of Present Illness Pt is 63 y/o M with PMH DM II, HTN, dyslipidemia, chronic anemia, dyslipidemia, sleep apnea not on CPAP seen in consultation for post op medical management s/p L5-S1 decompression fusion today by Dr Rock. Post op pt reports feeling well. Still with numbness legs and not having pain currently. Has [place] cath in place. Denies any nausea or vomiting. Denies chills, diaphoresis, WINN, dizziness, neck pain, CP, SOB, palpitations, cough, sore throat, choking, abdominal pain, extremity edema, rashes. Allergies Allergy/AdvReac Type Severity Reaction Status Date / Time No Known Drug Allergies Allergy Unknown Verified 03/23/19 10:04 Home Medications Home Medications Medication Instructions Recorded Confirmed Type aspirin 81 mg tablet,delayed 81 mg PO QAM #90 tab 12/10/18 03/23/19 History release alfuzosin 10 mg PO QAM 12/20/18 03/23/19 History metoprolol tartrate 25 mg tablet 12.5 mg PO BID #60 tab 12/28/18 03/23/19 Rx magnesium oxide 250 mg (as 250 mg PO QAM tab 01/04/19 03/23/19 History magnesium oxide) tablet multivitamin 1 tab PO QAM 01/04/19 03/23/19 History lisinopril 20 mg tablet 20 mg PO DAILY #30 tab 03/17/19 03/23/19 Rx sitagliptin 50 mg-metformin 1,000 1 tab PO BID 30 Days #60 tab 03/17/19 03/23/19 Rx mg tablet Patient History Medical History Anemia Carotid artery plaque Mild nonobstructive plaque noted on 2014 carotid doppler Chronic osteoarthritis Dyslipidemia Enlarged prostate with lower urinary tract symptoms (LUTS) Hearing loss Hx of pyloric stenosis s/p surgical repair Hypertension Left ventricular hypertrophy Echocardiogram 12/24/2018-LVEF 45-50 percent, severe inferolateral hypokinesis. Mid base to mid inferior hypokinesis. Echocardiogram 01/25/2019-mild concentric left ventricular hypertrophy with normal systolic function. Quijano treadmill score 6; met level achieved was 7 Lumbar radiculopathy Obesity Sleep apnea inconclusive sleep study, no device prescribed Type 2 diabetes mellitus NIDDM Surgical History History of gastric surgery For pyloric stenosis History of lithotripsy WITH CYSTOSCOPY/STENT History of lumbar fusion L2-L5 History of partial knee replacement LEFT Hx of colonoscopy X 3 Family History Father Coronary heart disease Myocardial infarction Diabetes Heart disease Sister Family history of gallbladder disease FHx: diabetes mellitus Diabetes Other Family history of kidney stones Social History Preferred Language: American Communication Ability: Effective Visual Impairment: No Limitations Hearing Ability: Normal Pediatric Oncologist Required: No Beliefs That Will Affect Care: None marital status: Current Living Situation: Spouse current occupational status: retired Other Information That Helps Us Care for You: No Feels Safe at Home: Yes Safety Concerns: Feels Safe At This Time Smoking Status: Never smoker Do You Dip or Chew Tobacco: No ; Second Hand Exposure: Yes (WHEN HE WAS WORKING) ; Hx Alcohol Use: No Hx Substance Use: No Childhood Exposure to Second-Hand Smoke: No Dental Care, Regularly: Yes Physical Activity Frequency: Daily Physical Activity Frequency Comment: twice daily walking Seatbelt Use: sometimes Review of Systems Review of Systems: All systems reviewed & are unremarkable except as noted in HPI & below Physical Exam Physical Exam: General: no distress, WDWN Head: normocephalic, atraumatic Eyes: PERRL, EOM's intact, conjunctiva non-injected, anicteric ENT: normal inspection external ears, nose, mucous membranes moist Neck: supple, trachea midline Lungs: clear, no respiratory distress, no wheezing/rhonchi/rales CV: RRR, no murmur, no pretibial edema Abd: normal BS, soft, non-tender Ext: no cyanosis, no calf tenderness; able to wiggle toes/feet bilaterally, sensation to light touch intact, distal pulses intact Neuro: A&O x 3, no focal deficits noted, normal affect Skin: warm, dry Results & Data Vital Signs (Past 12 Hours) Vital Signs Temp Pulse Pulse Resp BP BP Pulse Ox 03/23/19 18:23 36.3 C L 95 H 16 110/67 97 03/23/19 18:02 36.6 C 93 H 18 106/64 98 03/23/19 17:30 38.6 C H 90 14 113/65 100 03/23/19 17:20 36.8 C 91 H 12 119/63 99 03/23/19 17:10 91 H 12 108/59 L 99 03/23/19 17:00 89 12 112/63 100 03/23/19 16:50 90 11 L 120/67 100 03/23/19 16:41 37.1 C 93 H 16 128/65 97 03/23/19 10:11 37 C 80 20 155/90 H 98 Laboratory Results Short CBC 03/23/19 03/23/19 03/23/19 Range/Units 09:59 16:16 16:44 Hgb 10.9 L (14.0-18.0) g/dL Hct 32.3 L (42-52) % POC Glucose 143 H 138 H (70-99) 03/23/19 Range/Units 18:15 Hgb (14.0-18.0) g/dL Hct (42-52) % POC Glucose 196 H (70-99)
[2019-03-23] MEDS: SODIUM CHLORIDE 0.9% 1000ML 1,000 ML IV SCH ×2 (18:56→19:09)
[2019-03-23] MEDS: KETOROLAC TROMETHAMINE 15 MG/ML VIAL IV SCH ×2 (19:17→23:29)
[2019-03-23] MEDS: INSULIN ASPART 100 UNITS/ML 3 ML PEN SC SCH ×2 (19:55→21:45)
[2019-03-23] MEDS: METOPROLOL TARTRATE 25 MG TAB PO SCH (20:53)
[2019-03-23] MEDS: DOCUSATE SODIUM/SENNA 50/8.6MG TAB PO SCH (20:57)
[2019-03-23] MEDS: CEFAZOLIN 2000MG 2,000 MG/15 ML SYR IV SCH (22:23)
[2019-03-23 23:29] LABS: Hematocrit (blood only) 26.7 % (42-52); Immature Granulocytes # (auto) 0.02 K/uL (0.00-0.02); Immature Granulocytes % (auto) 0.2 %; Lymphocytes # (auto) 0.61 K/uL (1.2-3.4); Lymphocytes % (auto) 6.5 %; Mean Corpuscular Hemoglobin 29.2 pg (25-34); Mean Corpuscular Volume 86.7 fL (80-100); Mean Platelet Volume 10.7 fL (7.4-10.4); Monocytes # (auto) 0.45 K/uL (0.11-0.59); Monocytes % (auto) 4.8 %; Neutrophils # (auto) 8.33 K/uL (1.4-6.5); Neutrophils % (auto) 88.5 %; Platelet Count 160 K/uL (130-400); RDW Coefficient of Variation 13.2 % (11.5-14.5); RDW Standard Deviation 42.1 fL (36.4-46.3); Red Blood Count 3.08 M/uL (4.7-6.1); White Blood Count 9.41 K/uL (4.8-10.8)
[2019-03-23 23:58] LABS: Mean Corpuscular Hgb Conc 33.7 g/dL (32-36)
[2019-03-24] MEDS: SODIUM CHLORIDE 0.9% 1000ML 1,000 ML IV SCH (01:24)
[2019-03-24] MEDS ORDERED: COUGH DROP (SUGAR FREE) LOZ 24 LOZ/1 BOX BUCCAL ONE (03:34)
[2019-03-24] MEDS: ACETAMINOPHEN 500 MG TAB PO PRN (05:25)
[2019-03-24] MEDS: KETOROLAC TROMETHAMINE 15 MG/ML VIAL IV SCH (05:26)
[2019-03-24] MEDS: POLYETHYLENE (MIRALAX) 17 GM PACK PO SCH ×4 (05:32→23:59)
[2019-03-24] MEDS: CEFAZOLIN 2000MG 2,000 MG/15 ML SYR IV SCH (06:09)
[2019-03-24 06:26] LABS: Eosinophils # (auto) 0.02 K/uL (0-0.5); Eosinophils % (auto) 0.2 %; Hematocrit (blood only) 25.4 % (42-52); Hemoglobin 8.6 g/dL (14.0-18.0); Immature Granulocytes # (auto) 0.02 K/uL (0.00-0.02); Immature Granulocytes % (auto) 0.2 %; Lymphocytes # (auto) 1.76 K/uL (1.2-3.4); Lymphocytes % (auto) 14.9 %; Mean Corpuscular Hemoglobin 29.6 pg (25-34); Mean Corpuscular Hgb Conc 33.9 g/dL (32-36); Mean Corpuscular Volume 87.3 fL (80-100); Mean Platelet Volume 10.2 fL (7.4-10.4); Monocytes % (auto) 5.9 %; Neutrophils # (auto) 9.31 K/uL (1.4-6.5); Neutrophils % (auto) 78.8 %; Platelet Count 150 K/uL (130-400); RDW Coefficient of Variation 13.3 % (11.5-14.5); RDW Standard Deviation 42.9 fL (36.4-46.3); Red Blood Count 2.91 M/uL (4.7-6.1); White Blood Count 11.81 K/uL (4.8-10.8)
[2019-03-24 07:01] LABS: BUN Creatinine Ratio 14.8 (10-20); Calcium 7.7 mg/dl (8.5-10.1); Creatinine Clr Calc Pharmacy 45.6 ml/min; Est GFR (African American) 42.2; Est GFR (Non-African American) 36.4; Potassium 3.5 mmol/L (3.5-5.1)
[2019-03-24] MEDS ORDERED: Nursing to Pharmacy Communication ONE (07:13)
[2019-03-24] MEDS: ASPIRIN 81 MG ECTAB PO SCH (08:47)
[2019-03-24] MEDS: ALFUZOSIN HCL 10 MG TAB PO SCH (08:47)
[2019-03-24] MEDS: MULTIVITAMIN TAB PO SCH (08:47)
[2019-03-24] MEDS: METOPROLOL TARTRATE 25 MG TAB PO SCH ×2 (08:47→20:49)
[2019-03-24] MEDS: MAGNESIUM OXIDE 400 MG TAB PO SCH (08:47)
[2019-03-24] MEDS: INSULIN ASPART 100 UNITS/ML 3 ML PEN SC SCH ×4 (08:51→22:06)
[2019-03-24] MEDS ORDERED: LISINOPRIL 20 MG TAB PO SCH (09:00)
--- NOTE | 2019-03-24 10:53 | Anesthesiology Progress Note ---
Date of Service March 24, 2019 Anesthesia Post Procedure Vital Signs Vital Signs: Temp Pulse Pulse Resp BP Pulse Ox 03/24/19 08:45 106 H 127/69 03/24/19 06:50 36.5 C 88 18 165/75 H 96 03/24/19 06:23 101/64 03/24/19 03:23 36.5 C 88 16 105/63 98 03/23/19 23:23 36.5 C 94 H 16 98/58 L 95 03/23/19 22:26 99 H 90/51 L 94 03/23/19 20:52 100 H 96/58 L 96 03/23/19 20:25 36.2 C L 102 H 17 96/55 L 93 03/23/19 19:20 36.8 C 98 H 18 112/69 98 03/23/19 18:23 36.3 C L 95 H 16 110/67 97 03/23/19 18:02 36.6 C 93 H 18 106/64 98 03/23/19 17:30 38.6 C H 90 14 113/65 100 03/23/19 17:20 36.8 C 91 H 12 119/63 99 03/23/19 17:10 91 H 12 108/59 L 99 03/23/19 17:00 89 12 112/63 100 03/23/19 16:50 90 11 L 120/67 100 03/23/19 16:41 37.1 C 93 H 16 128/65 97 Pain Intensity Lower Back: Pain Intensity: 0 Notes Mental Status: alert / awake / arousable and participated in evaluation Nausea / Vomiting: adequately controlled Pain: adequately controlled Airway Patency, RR, SpO2: stable & adequate BP & HR: stable & adequate Hydration State: stable & adequate Anesthetic Complications: no major complications apparent
[2019-03-24] MEDS: TRAMADOL HCL 50 MG TABLET PO PRN ×2 (12:13→16:38)
--- NOTE | 2019-03-24 14:11 | Hospitalist Progress Note ---
Date of Service March 24, 2019 Assessment & Plan (1) Status post lumbar surgery: - S/p lumbar decompression L2-L5 by Dr. Rock on 03/23, POD#1. - Pain management per primary team. - DVT ppx per ortho. - PT/OT for discharge planning. - Monitor CBC daily to evaluate for acute blood loss. (2) Acute renal failure: - Creatinine increased to 1.89; baseline ~1.3-1.4. - Holding home Lisinopril. - Encouraged PO intake -- will need IV fluids if no improvement on 03/25. - Monitor renal function qAM. (3) Left ventricular hypertrophy: - Stress echo in Jan 2019 showed mild LVH. - Cleared pre-operatively. (4) Type 2 diabetes mellitus: - A1C was 7.3 in March. - SSI coverage as inpatient. (5) Carotid artery plaque: - Not currently on statin agent. (6) Dyslipidemia: - Continue ASA 81 mg daily. - Not currently on statin agent - f/u with PCP. (7) Hypertension: - BP has been elevated - likely related to holding home ACEI. - Continue Metoprolol 12.5 mg BID. - Holding Lisinopril 20 mg daily. - Recently discontinued Chlorthalidone at home. (8) Sleep apnea: - Has been stable on room air. - Unclear if pt. uses CPAP machine at home. (9) Anemia: - Baseline hemoglobin is ~8-12. Colonoscopy is up-to-date. - Currently trending down as expected post op. - Monitor CBC daily, may require blood transfusion if <8. (10) DVT prophylaxis: - SCDs; Per ortho. Dispo: Med/surg; will continue to follow, please call with questions. Subjective Pt. reports lumbar pain is a 5/10 on pain scale. Passing gas, no BM yet. Denies urinary retention. Review of Systems Review of Systems: All systems reviewed & are unremarkable except as noted in HPI & below Constitutional: no fever, no chills, no fatigue and no weakness Respiratory: no cough, no dyspnea, no dyspnea on exertion and no wheezing Cardiovascular: no chest pain, no palpitations and no edema Gastrointestinal: + constipation; no abdominal pain, no nausea and no vomiting Genitourinary: no difficulty urinating Musculoskeletal: no back pain and no joint pain Integumentary: no non-healing lesions Physical Exam Physical Exam: General: Resting comfortably HEENT: NC/AT; PERRLA with EOMI; [place] conjunctiva, MMM. No erythema of posterior pharynx Neck: Supple and nontender Cardiac: RRR Lungs: CTA bilaterally Abdomen: Bowel normoactive X 4; Nontender to palpation Extremities: Warm. No edema present Neuro: No focal weakness Skin: No rash Results & Data Vital Signs (Past 12 Hours) Vital Signs Temp Pulse Resp BP Pulse Ox 03/24/19 12:27 36.7 C 89 19 128/69 100 03/24/19 08:45 106 H 127/69 03/24/19 06:50 36.5 C 88 18 165/75 H 96 03/24/19 06:23 101/64 03/24/19 03:23 36.5 C 88 16 105/63 98 Laboratory Results 03/24/19 03/24/19 03/24/19 Range/Units 07:27 06:15 06:15 WBC 11.81 H (4.8-10.8) K/uL RBC 2.91 L (4.7-6.1) M/uL Hgb 8.6 L (14.0-18.0) g/dL POC Hgb (14.0-18.0) g/dl Hct 25.4 L (42-52) % POC Hct (42-52) % MCV 87.3 (80-100) fL MCH 29.6 (25-34) pg MCHC 33.9 (32-36) g/dL RDW Std Deviation 42.9 (36.4-46.3) fL RDW Coeff of Keke 13.3 (11.5-14.5) % Plt Count 150 (130-400) K/uL MPV 10.2 (7.4-10.4) fL Immature Gran % (Auto) 0.2 % Neut % (Auto) 78.8 % Lymph % (Auto) 14.9 % Grainger % (Auto) 5.9 % Eos % (Auto) 0.2 % Baso % (Auto) 0.0 % Immature Gran # (Auto) 0.02 (0.00-0.02) K/uL Neut # (Auto) 9.31 H (1.4-6.5) K/uL Lymph # (Auto) 1.76 (1.2-3.4) K/uL Grainger # (Auto) 0.70 H (0.11-0.59) K/uL Eos # (Auto) 0.02 (0-0.5) K/uL Baso # (Auto) 0.00 (0-0.2) K/uL POC Sodium (135-144) mEq/L Sodium 135 L (136-145) mmol/L POC Potassium (3.3-5.0) mEq/L Potassium 3.5 (3.5-5.1) mmol/L POC Chloride (101-112) mEq/L Chloride 105 (98-107) mmol/L Carbon Dioxide 24 (21-32) mmol/L POC Total CO2 (24-31) mEq/l Anion Gap 6.0 (3-11) POC Anion Gap (16-25) mmol/L POC BUN (7-18) mg/dl BUN 28 H (7-18) mg/dl Creatinine 1.89 H (0.6-1.4) mg/dl POC Creatinine (0.6-1.3) mg/dl Est Cr Clr Drug Dosing 45.6 ml/min Est GFR ( Amer) 42.2 Est GFR (Non-Af Amer) 36.4 BUN/Creatinine Ratio 14.8 (10-20) Glucose 140 H (70-99) mg/dl POC Glucose 145 H (70-99) POC Glucose (other) (70-99) mg/dl Calcium 7.7 L (8.5-10.1) mg/dl POC Ioniz Calcium Shanique (1.12-1.32) mmol/l Hepatitis C Ab Screen (Neg) 03/23/19 03/23/19 03/23/19 Range/Units 23:00 21:43 20:32 WBC 9.41 (4.8-10.8) K/uL RBC 3.08 L (4.7-6.1) M/uL Hgb 9.0 L (14.0-18.0) g/dL POC Hgb (14.0-18.0) g/dl Hct 26.7 L (42-52) % POC Hct (42-52) % MCV 86.7 (80-100) fL MCH 29.2 (25-34) pg MCHC 33.7 (32-36) g/dL RDW Std Deviation 42.1 (36.4-46.3) fL RDW Coeff of Keke 13.2 (11.5-14.5) % Plt Count 160 (130-400) K/uL MPV 10.7 H (7.4-10.4) fL Immature Gran % (Auto) 0.2 % Neut % (Auto) 88.5 % Lymph % (Auto) 6.5 % Grainger % (Auto) 4.8 % Eos % (Auto) 0.0 % Baso % (Auto) 0.0 % Immature Gran # (Auto) 0.02 (0.00-0.02) K/uL Neut # (Auto) 8.33 H (1.4-6.5) K/uL Lymph # (Auto) 0.61 L (1.2-3.4) K/uL Grainger # (Auto) 0.45 (0.11-0.59) K/uL Eos # (Auto) 0.00 (0-0.5) K/uL Baso # (Auto) 0.00 (0-0.2) K/uL POC Sodium (135-144) mEq/L Sodium (136-145) mmol/L POC Potassium (3.3-5.0) mEq/L Potassium (3.5-5.1) mmol/L POC Chloride (101-112) mEq/L Chloride (98-107) mmol/L Carbon Dioxide (21-32) mmol/L POC Total CO2 (24-31) mEq/l Anion Gap (3-11) POC Anion Gap (16-25) mmol/L POC BUN (7-18) mg/dl BUN (7-18) mg/dl Creatinine (0.6-1.4) mg/dl POC Creatinine (0.6-1.3) mg/dl Est Cr Clr Drug Dosing ml/min Est GFR ( Amer) Est GFR (Non-Af Amer) BUN/Creatinine Ratio (10-20) Glucose (70-99) mg/dl POC Glucose 253 H 294 H (70-99) POC Glucose (other) (70-99) mg/dl Calcium (8.5-10.1) mg/dl POC Ioniz Calcium Shanique (1.12-1.32) mmol/l Hepatitis C Ab Screen (Neg) 03/23/19 03/23/19 03/23/19 Range/Units 18:15 16:44 16:16 WBC (4.8-10.8) K/uL RBC (4.7-6.1) M/uL Hgb (14.0-18.0) g/dL POC Hgb 10.9 L (14.0-18.0) g/dl Hct (42-52) % POC Hct 32 L (42-52) % MCV (80-100) fL MCH (25-34) pg MCHC (32-36) g/dL RDW Std Deviation (36.4-46.3) fL RDW Coeff of Keke (11.5-14.5) % Plt Count (130-400) K/uL MPV (7.4-10.4) fL Immature Gran % (Auto) % Neut % (Auto) % Lymph % (Auto) % Grainger % (Auto) % Eos % (Auto) % Baso % (Auto) % Immature Gran # (Auto) (0.00-0.02) K/uL Neut # (Auto) (1.4-6.5) K/uL Lymph # (Auto) (1.2-3.4) K/uL Grainger # (Auto) (0.11-0.59) K/uL Eos # (Auto) (0-0.5) K/uL Baso # (Auto) (0-0.2) K/uL POC Sodium 138 (135-144) mEq/L Sodium (136-145) mmol/L POC Potassium 3.9 (3.3-5.0) mEq/L Potassium (3.5-5.1) mmol/L POC Chloride 105 (101-112) mEq/L Chloride (98-107) mmol/L Carbon Dioxide (21-32) mmol/L POC Total CO2 23 L (24-31) mEq/l Anion Gap (3-11) POC Anion Gap 15.0 L (16-25) mmol/L POC BUN 23 H (7-18) mg/dl BUN (7-18) mg/dl Creatinine (0.6-1.4) mg/dl POC Creatinine 1.3 (0.6-1.3) mg/dl Est Cr Clr Drug Dosing ml/min Est GFR ( Amer) Est GFR (Non-Af Amer) BUN/Creatinine Ratio (10-20) Glucose (70-99) mg/dl POC Glucose 196 H 138 H (70-99) POC Glucose (other) 143 H (70-99) mg/dl Calcium (8.5-10.1) mg/dl POC Ioniz Calcium Shanique 1.16 (1.12-1.32) mmol/l Hepatitis C Ab Screen (Neg) 03/23/19 03/23/19 Range/Units 16:16 09:53 WBC (4.8-10.8) K/uL RBC (4.7-6.1) M/uL Hgb 10.9 L (14.0-18.0) g/dL POC Hgb (14.0-18.0) g/dl Hct 32.3 L (42-52) % POC Hct (42-52) % MCV (80-100) fL MCH (25-34) pg MCHC (32-36) g/dL RDW Std Deviation (36.4-46.3) fL RDW Coeff of Keke (11.5-14.5) % Plt Count (130-400) K/uL MPV (7.4-10.4) fL Immature Gran % (Auto) % Neut % (Auto) % Lymph % (Auto) % Grainger % (Auto) % Eos % (Auto) % Baso % (Auto) % Immature Gran # (Auto) (0.00-0.02) K/uL Neut # (Auto) (1.4-6.5) K/uL Lymph # (Auto) (1.2-3.4) K/uL Grainger # (Auto) (0.11-0.59) K/uL Eos # (Auto) (0-0.5) K/uL Baso # (Auto) (0-0.2) K/uL POC Sodium (135-144) mEq/L Sodium (136-145) mmol/L POC Potassium (3.3-5.0) mEq/L Potassium (3.5-5.1) mmol/L POC Chloride (101-112) mEq/L Chloride (98-107) mmol/L Carbon Dioxide (21-32) mmol/L POC Total CO2 (24-31) mEq/l Anion Gap (3-11) POC Anion Gap (16-25) mmol/L POC BUN (7-18) mg/dl BUN (7-18) mg/dl Creatinine (0.6-1.4) mg/dl POC Creatinine (0.6-1.3) mg/dl Est Cr Clr Drug Dosing ml/min Est GFR ( Amer) Est GFR (Non-Af Amer) BUN/Creatinine Ratio (10-20) Glucose (70-99) mg/dl POC Glucose (70-99) POC Glucose (other) (70-99) mg/dl Calcium (8.5-10.1) mg/dl POC Ioniz Calcium Shanique (1.12-1.32) mmol/l Hepatitis C Ab Screen Neg (Neg) PG Care Time/CCT Total # of Minutes Spent Total Time Spent with Patient: Total time spent is greater than 50% in co ordination of care (as documented) at patient's floor/unit and/or counseling patient:
--- NOTE | 2019-03-24 15:11 | Orthopedic Progress Note ---
Date of Service March 24, 2019 Assessment & Plan (1) Neurogenic claudication due to lumbar spinal stenosis: This time we will continue physical therapy monitor his ANDRES output. I will reassess in a.m. H&H. Present on Admission?: Yes Subjective Back pain is controlled leg pain markedly improved. Physical Exam Physical Exam: Patient is sitting up in the chair at the bedside. Is good strength testing. Appears comfortable. Results & Data Vital Signs (Past 12 Hours) Vital Signs Temp Pulse Resp BP BP Pulse Ox 03/24/19 15:07 36.7 C 94 H 17 142/73 H 100 03/24/19 12:27 36.7 C 89 19 128/69 100 03/24/19 08:45 106 H 127/69 03/24/19 06:50 36.5 C 88 18 165/75 H 96 03/24/19 06:23 101/64 03/24/19 03:23 36.5 C 88 16 105/63 98
[2019-03-24] MEDS: DOCUSATE SODIUM/SENNA 50/8.6MG TAB PO SCH (20:49)
[2019-03-25] MEDS: POLYETHYLENE (MIRALAX) 17 GM PACK PO SCH (05:28)
[2019-03-25 05:54] LABS: Hemoglobin 7.8 g/dL (14.0-18.0); Mean Corpuscular Hemoglobin 29.2 pg (25-34); Mean Corpuscular Hgb Conc 33.9 g/dL (32-36); Mean Corpuscular Volume 86.1 fL (80-100); Mean Platelet Volume 10.8 fL (7.4-10.4); Platelet Count 141 K/uL (130-400); RDW Coefficient of Variation 13.2 % (11.5-14.5); RDW Standard Deviation 41.7 fL (36.4-46.3); Red Blood Count 2.67 M/uL (4.7-6.1); White Blood Count 10.17 K/uL (4.8-10.8)
[2019-03-25 06:26] LABS: Calcium 8.1 mg/dl (8.5-10.1); Creatinine Clr Calc Pharmacy 60.2 ml/min; Est GFR (African American) 59.1; Potassium 4.1 mmol/L (3.5-5.1)
[2019-03-25] MEDS ORDERED: SODIUM CHLORIDE 0.9% 250 ML IV PRN (07:42)
[2019-03-25] MEDS ORDERED: Nursing to Pharmacy Communication ONE (08:11)
[2019-03-25] MEDS: MULTIVITAMIN TAB PO SCH (08:24)
[2019-03-25] MEDS: ASPIRIN 81 MG ECTAB PO SCH (08:24)
[2019-03-25] MEDS: METOPROLOL TARTRATE 25 MG TAB PO SCH ×2 (08:24→20:33)
[2019-03-25] MEDS: MAGNESIUM OXIDE 400 MG TAB PO SCH (08:25)
[2019-03-25] MEDS: ALFUZOSIN HCL 10 MG TAB PO SCH (08:25)
[2019-03-25] MEDS: INSULIN ASPART 100 UNITS/ML 3 ML PEN SC SCH ×4 (08:28→20:44)
--- NOTE | 2019-03-25 10:45 | Orthopedic Progress Note ---
Date of Service March 25, 2019 Assessment & Plan (1) Neurogenic claudication due to lumbar spinal stenosis: This time we will transfuse 2 units today. His hematocrit dropped significantly. We will continue physical therapy. Consider possible discharge home tomorrow with home health for drain management. Present on Admission?: Yes Subjective Patient's back pain is controlled leg symptoms markedly improved. Physical Exam Physical Exam: Patient is in the chair at the bedside. Appears comfortable. Is good strength testing. Results & Data Vital Signs (Past 12 Hours) Vital Signs Temp Pulse Pulse Pulse Resp BP BP 03/25/19 10:10 37.0 C 106 H 18 122/71 03/25/19 09:40 36.8 C 98 H 16 113/69 03/25/19 09:10 36.9 C 98 H 18 109/69 03/25/19 08:55 37.2 C 100 H 18 121/73 03/25/19 08:38 37.5 C 104 H 16 107/58 L 03/25/19 07:46 36.6 C 101 H 16 03/24/19 23:24 36.8 C 94 H 15 126/70 BP Pulse Ox 03/25/19 10:10 100 03/25/19 09:40 99 03/25/19 09:10 100 03/25/19 08:55 98 03/25/19 08:38 98 03/25/19 07:46 120/68 99 03/24/19 23:24 97
--- NOTE | 2019-03-25 13:01 | Hospitalist Progress Note ---
Date of Service March 25, 2019 Assessment & Plan (1) Status post lumbar surgery: - S/p lumbar decompression L2-L5 by Dr. Rock on 03/23, POD#2. - Pain management per primary team. - DVT ppx per ortho. - PT/OT - discharge with home health possibly on Thursday. (2) Acute renal failure: - Creatinine peaked at 1.89, now trending down; baseline ~1.3-1.4. - Hold home Lisinopril. - Encouraged PO intake; will receive 2 units pRBCs, no indication for IV fluids. - Monitor renal function daily. (3) Left ventricular hypertrophy: - Stress echo in Jan 2019 showed mild LVH. - Cleared pre-operatively. (4) Type 2 diabetes mellitus: - A1C was 7.3 in March. - SSI coverage as inpatient. (5) Carotid artery plaque: - Not currently on statin agent. (6) Dyslipidemia: - Continue ASA 81 mg daily. - Not currently on statin agent; declined medication during last visit with PCP. (7) Hypertension: - BP has been well controlled. - Continue Metoprolol 12.5 mg BID. - Hold Lisinopril 20 mg daily. - Recently discontinued Chlorthalidone at home - reports BP was low in setting of ACEI + Chlorthalidone therapy. (8) Sleep apnea: - Has been stable on room air. - He denies h/o LUIS DANIEL -- does not use CPAP at home. (9) Anemia: - Baseline hemoglobin is ~8-12. Colonoscopy is up-to-date. - Hgb 7.8 -- will transfuse 2 units pRBCs. (10) DVT prophylaxis: - SCDs; Per ortho. Dispo: Med/surg; will sign off, please call with any questions. Subjective Pt. is doing well. Is passing gas, no BM. Hgb trended down to 7.8 -- will transfuse 2 units pRBCs. Review of Systems Review of Systems: All systems reviewed & are unremarkable except as noted in HPI & below Constitutional: no fever, no chills, no fatigue and no weakness Respiratory: no cough, no dyspnea, no dyspnea on exertion and no wheezing Cardiovascular: no chest pain, no palpitations and no edema Gastrointestinal: + constipation; no abdominal pain, no nausea and no vomiting Genitourinary: no difficulty urinating Musculoskeletal: + back pain; no joint pain Integumentary: no non-healing lesions Physical Exam Physical Exam: General: Resting comfortably HEENT: NC/AT; PERRLA with EOMI; [place] conjunctiva, MMM. No erythema of posterior pharynx Neck: Supple and nontender Cardiac: RRR Lungs: CTA bilaterally Abdomen: Bowel normoactive X 4; Nontender to palpation Extremities: Warm. No edema present Neuro: No focal weakness Skin: No rash Results & Data Vital Signs (Past 12 Hours) Vital Signs Temp Pulse Pulse Resp BP BP Pulse Ox 03/25/19 11:58 37.2 C 93 H 17 128/73 03/25/19 11:31 36.9 C 92 H 18 114/72 99 03/25/19 11:15 36.9 C 97 H 14 115/66 100 03/25/19 11:00 36.8 C 113 H 18 113/58 L 96 03/25/19 10:10 37.0 C 106 H 18 122/71 100 03/25/19 09:40 36.8 C 98 H 16 113/69 99 03/25/19 09:10 36.9 C 98 H 18 109/69 100 03/25/19 08:55 37.2 C 100 H 18 121/73 98 03/25/19 08:38 37.5 C 104 H 16 107/58 L 98 03/25/19 07:46 36.6 C 101 H 16 120/68 99 Laboratory Results 03/25/19 03/25/19 03/25/19 Range/Units 12:10 08:06 05:01 WBC (4.8-10.8) K/uL RBC (4.7-6.1) M/uL Hgb (14.0-18.0) g/dL Hct (42-52) % MCV (80-100) fL MCH (25-34) pg MCHC (32-36) g/dL RDW Std Deviation (36.4-46.3) fL RDW Coeff of Keke (11.5-14.5) % Plt Count (130-400) K/uL MPV (7.4-10.4) fL Sodium 132 L (136-145) mmol/L Potassium 4.1 D (3.5-5.1) mmol/L Chloride 103 (98-107) mmol/L Carbon Dioxide 24 (21-32) mmol/L Anion Gap 5.0 (3-11) BUN 27 H (7-18) mg/dl Creatinine 1.43 H D (0.6-1.4) mg/dl Est Cr Clr Drug Dosing 60.2 ml/min Est GFR ( Amer) 59.1 Est GFR (Non-Af Amer) 51.0 BUN/Creatinine Ratio 19.0 (10-20) Glucose 166 H (70-99) mg/dl POC Glucose 206 H 187 H (70-99) Calcium 8.1 L (8.5-10.1) mg/dl Blood Type Antibody Screen Crossmatch 03/25/19 03/24/19 03/24/19 Range/Units 05:01 20:27 17:19 WBC 10.17 (4.8-10.8) K/uL RBC 2.67 L (4.7-6.1) M/uL Hgb 7.8 L (14.0-18.0) g/dL Hct 23.0 L (42-52) % MCV 86.1 (80-100) fL MCH 29.2 (25-34) pg MCHC 33.9 (32-36) g/dL RDW Std Deviation 41.7 (36.4-46.3) fL RDW Coeff of Keke 13.2 (11.5-14.5) % Plt Count 141 (130-400) K/uL MPV 10.8 H (7.4-10.4) fL Sodium (136-145) mmol/L Potassium (3.5-5.1) mmol/L Chloride (98-107) mmol/L Carbon Dioxide (21-32) mmol/L Anion Gap (3-11) BUN (7-18) mg/dl Creatinine (0.6-1.4) mg/dl Est Cr Clr Drug Dosing ml/min Est GFR ( Amer) Est GFR (Non-Af Amer) BUN/Creatinine Ratio (10-20) Glucose (70-99) mg/dl POC Glucose 130 H 148 H (70-99) Calcium (8.5-10.1) mg/dl Blood Type Antibody Screen Crossmatch 03/24/19 03/23/19 Range/Units 12:08 09:53 WBC (4.8-10.8) K/uL RBC (4.7-6.1) M/uL Hgb (14.0-18.0) g/dL Hct (42-52) % MCV (80-100) fL MCH (25-34) pg MCHC (32-36) g/dL RDW Std Deviation (36.4-46.3) fL RDW Coeff of Keke (11.5-14.5) % Plt Count (130-400) K/uL MPV (7.4-10.4) fL Sodium (136-145) mmol/L Potassium (3.5-5.1) mmol/L Chloride (98-107) mmol/L Carbon Dioxide (21-32) mmol/L Anion Gap (3-11) BUN (7-18) mg/dl Creatinine (0.6-1.4) mg/dl Est Cr Clr Drug Dosing ml/min Est GFR ( Amer) Est GFR (Non-Af Amer) BUN/Creatinine Ratio (10-20) Glucose (70-99) mg/dl POC Glucose 134 H (70-99) Calcium (8.5-10.1) mg/dl Blood Type A Positive Antibody Screen NEGATIVE Crossmatch See Detail PG Care Time/CCT Total # of Minutes Spent Total Time Spent with Patient: Total time spent is greater than 50% in coordination of care (as documented) at patient's floor/unit and/or counseling patient:
[2019-03-25] MEDS: ACETAMINOPHEN 500 MG TAB PO PRN (15:53)
[2019-03-25] MEDS: DOCUSATE SODIUM/SENNA 50/8.6MG TAB PO SCH (20:35)
[2019-03-26 05:52] LABS: Hematocrit (blood only) 25.6 % (42-52); Hemoglobin 8.8 g/dL (14.0-18.0)
[2019-03-26 06:31] LABS: BUN Creatinine Ratio 16.2 (10-20); Calcium 8.7 mg/dl (8.5-10.1); Creatinine Clr Calc Pharmacy 71.8 ml/min; Est GFR (African American) 73.1; Est GFR (Non-African American) 63.1
[2019-03-26] MEDS: INSULIN ASPART 100 UNITS/ML 3 ML PEN SC SCH (08:39)
[2019-03-26] MEDS: METOPROLOL TARTRATE 25 MG TAB PO SCH (08:40)
[2019-03-26] MEDS: ASPIRIN 81 MG ECTAB PO SCH (08:40)
[2019-03-26] MEDS: MULTIVITAMIN TAB PO SCH (08:41)
[2019-03-26] MEDS: MAGNESIUM OXIDE 400 MG TAB PO SCH (08:41)
[2019-03-26] MEDS: ALFUZOSIN HCL 10 MG TAB PO SCH (08:41)
--- NOTE | 2019-03-26 08:57 | Discharge Summary ---
Date of Service March 26, 2019 Admission HPI Per Admitting Provider This is a 63-year-old male who presents with chronic persistent back and leg pain. After failing extensive course of nonoperative care is here for surgical intervention. Admission Exam (Per Admitting) Constitutional WD/WN, vitals as above Eyes normal visual woo by confrontation ENMT external ear and nose normal, oropharynx normal Neck normal visual inspection Respiratory normal respiratory effort Cardiovascular Extremities: normal capillary refill Gastrointestinal (Abdomen) Inspection/Auscultation: abdomen normal to inspection Musculoskeletal Extremities: extremities normal to inspection and strength 5/5 throughout Skin no rashes, warm and dry Neurologic normal touch/pain/proprioception, deep tendon reflexes 2+ bilaterally and moves all extremities Psychiatric A+Ox3, euthymic affect Discharge Data Consultations 03/23/19 17:32 Consult Case Management - Discharge Planning Routine 03/23/19 19:27 Consult Hospitalist Routine Procedures Performed Operation Date: 03/23/19 11:45 Actual Procedures p L5-S1 Decompression and Fusion, L2-L5 Hardware Removal, Spinal Cord Monitoring, Application of Bone Morphogenetic Protein and Allograft - [place], Hospital Course (1) Neurogenic claudication due to lumbar spinal stenosis: Patient is done well postoperatively. He is being discharged home with home health on postoperative day 3. This is due to maintenance of ANDRES drain upon discharge. On postoperative day 2 he had a low H&H was resulted in a transfusion of 2 units of packed red blood cells. Asymptomatic on postoperative day 3. H&H are 8.8 and 25.6 on postoperative day 3. Otherwise he has had an uncomplicated postoperative course. Discharge Instructions ACTIVITY RECOMMENDATIONS: SELF CARE INSTRUCTIONS AFTER THORACIC/LUMBAR FUSIONS 1. You may walk to your tolerance. It is good exercise for your legs and back. Expect some back and intermittent leg aches and pains. 2. You may perform "counter-top" level activities (make a sandwich, brenda with a project, etc.). 3. No bending or lifting of more than 10 pounds or back twisting of any nature (roll like a log when turning in bed). 4. You may ride in a car for 20-30 minutes at a time. No driving until after your first visit with your doctor. 5. Frequent changes of position and restricting sitting to 30 minutes at a time will help limit the amount of back spasms and stiffness you may experience. 6. You may discontinue the use of ambulatory aids (cane, crutches, etc.) once your strength and confidence allow. 7. You may painter helper spray the shower and let water strike your incision when you arrive home at least once daily. Do not take a tub bath, sit in a hot tub or go into a swimming pool until after your first recheck in the office. SPECIAL CARE INSTRUCTIONS: VERY IMPORTANT TO READ AND REVIEW A. Your surgical incision has been closed with a cosmetic suture under the skin that will dissolve in about 6 weeks. In 14 days, you can use a pair of clean scissors and cut the suture that is left outside of the skin at the ends of your incision. 1. The small skin tapes can be removed 7 days after surgery if they have not fallen off by that point. 2. You may keep the wound open to air as much as possible to promote healing after post-op day number 5 unless told otherwise by your doctor. 3. If you think the wound looks like it is becoming infected (redness or worsening drainage) and/or you are experiencing fever, chill or worsening back pain and muscle spasms, contact the office so that we may evaluate you as soon as possible. B. Complications are uncommon, but please contact us if you have any signs or symptoms of: 1. wound infection (fever higher than 102.5 degrees F, redness, separation of wound, drainage, or increasing pain from the incision) 2. blood clots in legs (pain, swelling, redness and warmth in legs) 3. urinary tract infection (fever higher than 102.5 degrees F, burning upon urination or increased frequency of urination) 4. nerve problems (inability to walk on your toes or heels, numbness, loss of bowel or bladder control) 5. any other symptoms that concern you C. Please call the office at if you have any concerns or questions about your operation or recovery. D. No smoking! Smoking drastically decreases the chance of a solid fusion. E. Do not take any anti-inflammatory medications (Indocin, Advil, Motrin, Aspirin, Naprosyn, etc.) as these may inhibit the chance of a solid fusion. Tylenol is okay to take for pain. MANAGING PAIN AFTER SPINAL SURGERY 1. Narcotic medication is intended for short-term use and will be provided for surgical pain. Surgical pain usually lasts for a period of 4-6 weeks. Narcotic medication includes Percocet, Vicodin, Darvocet, Tylenol #3 or Lortab. 2. Longer-term pain is more appropriately treated with non-narcotic medication such as Tylenol ES. 3. Muscle spasm is not appropriately treated with narcotics. Muscle relaxers such as Soma, Flexeril or Skelaxin can be used along with Tylenol ES. 4. Remember that we all live with some "aches and pains". This is not unusual or uncommon after an injury or as we get older. a. Back pain is expected and may include muscle spasms for 4 to 6 weeks after surgery. The pain should gradually improve. If the pain worsens for no apparent reason, please contact the office. b. Intermittent leg pain may also be experienced and should not be concerned about unless it worsens for no apparent reason. If so, please contact the office. 5. We will provide appropriate medication within the normal guidelines of their prescribed use. We will also be very cautious and aware of potential abuse and extended duration of patients' medication needs. a. Pain medications are for your comfort and to assist with sleep and rest so that the tissue can heal. They are not provided in order to return to normal activity and should not be used through the day. To do so or worsening pain at night can result from ongoing tissue damage and development of tolerance to the prescribed medicine. 6. Please allow 2-3 days to process refills. Prescriptions will not be mailed but must be picked up at the office. FOLLOW UP VISIT: Keep your scheduled follow-up appointment. Any questions, please call the office at . Supervising Physician Co-Signing Physician Notes Dr. Adalid Rock
[2020-03-23] MEDS ORDERED: GABAPENTIN 300 MG CAP PO SCH (06:00)
[2020-03-23] MEDS ORDERED: ACETAMINOPHEN 500 MG TAB PO SCH (06:00)
[2020-03-23] MEDS ORDERED: CEFAZOLIN 2000MG 2,000 MG/15 ML SYR IV SCH (06:00)
[2020-03-23] MEDS ORDERED: CeleBREX 200 MG CAP PO SCH (06:00)
== END 2019-03-26 10:55 | disposition home health service (06) | DRG 454 ==
LOC: ASU 09:31 → 3E 16:56

== ENCOUNTER 2024-06-28 09:44 | Observation (INO) ==
[2024-06-28 10:32] LABS: Basophils # (auto) 0.02 K/uL (0.00-0.20); Basophils % (auto) 0.2 %; Eosinophils # (auto) 0.07 K/uL (0.00-0.50); Eosinophils % (auto) 0.8 %; Hematocrit (blood only) 38.8 % (42.0-52.0); Hemoglobin 12.6 g/dl (14.0-18.0); Immature Granulocytes # (auto) 0.02 K/uL (0.01-0.20); Immature Granulocytes % (auto) 0.2 %; Lymphocytes # (auto) 1.39 K/uL (1.20-3.40); Lymphocytes % (auto) 16.1 %; Mean Corpuscular Hemoglobin 29.5 pg (25.0-34.0); Mean Corpuscular Hgb Conc 32.5 g/dL (32.0-36.0); Mean Corpuscular Volume 90.9 fL (80.0-100.0); Mean Platelet Volume 11.1 fL (9.4-12.4); Monocytes # (auto) 0.56 K/uL (0.11-0.59); Monocytes % (auto) 6.5 %; Neutrophils % (auto) 76.2 %; Platelet Count 195 K/uL (130-400); RDW Coefficient of Variation 13.2 % (11.5-14.5); RDW Standard Deviation 43.8 fL (36.4-46.3); Red Blood Count 4.27 M/uL (4.70-6.10); White Blood Count 8.66 K/ul (4.8-10.8)
[2024-06-28] MEDS ORDERED: 0.2 MICRON FILTER SET 1 EACH IV STA (10:35)
--- NOTE | 2024-06-28 10:35 | Emergency Department Note ---
Impression & Plan Atrial flutter by electrocardiography, CKD (chronic kidney disease) ED Provider Note NAME: INDRA HAMM AGE: 68 SEX: M : 1955 ARRIVES VIA: Walk-In INFORMANT: Patient, ED PROVIDER(S): Keturah Pearl MD CHIEF COMPLAINT: Atrial flutter HPI: This is a 68-year-old male presents for atrial flutter. Patient was seen by Dr. Meza, cardiology, for routine echocardiogram prior to surgery today. While in the office, patient was found to be in atrial flutter. Patient told his living nurse that he had a normal heart rate yesterday in the 80s. Patient was then sent in for further evaluation. I did receive a call from Dr Meza, who states that based on patient's history, normal heart rate yesterday, and echocardiogram, patient should receive amiodarone for conversion. If unsuccessful, will require admission. Patient self currently denies any symptoms going chest pain, shortness of breath, fever, chills, nausea, vomiting. He does not feel himself in atrial flutter at this time. He does confirm that he was having normal heart rhythm yesterday ROS: See above HPI for pertinent positives & negatives. A total of 10 systems reviewed and were otherwise negative. PAST MEDICAL HISTORY: See Below PAST SURGICAL HISTORY: See Below FAMILY HISTORY: See Below SOCIAL HISTORY: See Below HOME MEDICATIONS: See Below ALLERGIES: See Below VITALS: See Below PHYSICAL EXAMINATION: General: resting comfortably in no acute distress Head: Normocephalic and atraumatic Eyes: Normal inspection, extraocular muscles intact Ear, nose, throat: Normal external exam Neck: Normal range of motion Respiratory: lungs clear to auscultation bilaterally Cardiovascular: Tachycardic regular rate/rhythm, no murmur GI: soft, nontender, no guarding or rebound Extremities: nontender, moves all extremities Neuro: The patient awake and alert, appropriately conversive, no focal deficits, symmetric faces Skin: Warm, dry, and intact MEDICAL DECISION MAKING: This is a 68-year-old male presenting for atrial flutter. Patient seen by cardiology, advised to come here for amiodarone. I spoke directly with Dr. Meza, his recommendations for amiodarone. Patient is calm and that he was having a normal heart rate in the 80s on his blood pressure cuff yesterday. Will start amiodarone at this time, echocardiogram done today reviewed by myself without evidence of clot. -Bloodwork is reviewed showing no significant leukocytosis, anemia, electrolyte or creatinine abnormality. Negative troponin -Patient given amiodarone IV/bolus at this time for over 2 hours without any improvement in rates. Has not converted to sinus rhythm -Will start IV heparin at this time as well, IV bolus/drip -Will admit for further workup of new atrial flutter, resistant to chemical cardioversion requiring anticoagulation Differential diagnosis: Atrial flutter, atrial fibrillation, SVT Independent History obtained from: , Dr. Meza Diagnostics interpreted by me: ECG: ECG independently interpreted by me with atrial flutter at a rate of 145, normal QRS, normal QTc, no ST segment elevations consistent with STEMI criteria Cardiac Monitoring: An order was placed for continuous cardiac monitoring. The monitor shows a rate of 142 with atrial flutter rhythm. Critical Care Note: I have personally spent 36 minutes of critical care time in the direct management of this patient. This includes bedside care, interpretation of diagnostic studies, and testing, discussion with consultants, patient, and family members, and other required patient management activities. This 36 minutes is in excess of all separately billable procedures. Past Med/Surg History Problem List (Updated 06/28/24 @ 17:21 by Keturah Pearl MD) CKD (chronic kidney disease) (Acute) Atrial flutter by electrocardiography (Acute) Atrial fibrillation Spinal stenosis, lumbar region with neurogenic claudication Cervical pain (neck) Osteopenia Lumbar facet joint syndrome Sacroiliitis Hypomagnesemia Kidney stones, calcium oxalate Vitamin D deficiency Tremor Parkinson disease Stenosis of cavernous portion of right internal carotid artery History of colon polyps Anemia Neurogenic claudication due to lumbar spinal stenosis Status post lumbar surgery L5-S1 Decompression and Fusion, L2-L5 Hardware Removal, Spinal Cord Monitoring, Application of Bone Morphogenetic Protein and Allograft - Adalid Rock, DO Bilateral cataracts Left ventricular hypertrophy Echocardiogram 12/24/2018-LVEF 45-50 percent, severe inferolateral hypokinesis. Mid base to mid inferior hypokinesis. Echocardiogram 01/25/2019-mild concentric left ventricular hypertrophy with normal systolic function. Quijano treadmill score 6; met level achieved was 7 Hx of pyloric stenosis s/p surgical repair Type 2 diabetes mellitus NIDDM Sleep apnea inconclusive sleep study, no device prescribed Lumbar radiculopathy Dyslipidemia Carotid artery plaque Mild nonobstructive plaque noted on 2015 carotid doppler Chronic osteoarthritis Enlarged prostate with lower urinary tract symptoms (LUTS) Hypertension Medical History Hearing loss Obesity Surgical History History of lithotripsy History of non-cataract eye surgery History of cataract surgery History of back surgery Hx of colonoscopy History of partial knee replacement History of lumbar fusion History of gastric surgery Family History Father Coronary heart disease Myocardial infarction Diabetes Heart disease Sister Family history of gallbladder disease Diabetes Other Family history of kidney stones Denies family history of Ovarian cancer Prostate cancer Breast cancer Lung cancer Colorectal cancer Social History Smoking Status: Never smoker Second Hand Exposure: Yes (WHEN HE WAS WORKING); Do You Dip or Chew Tobacco: No; Hx Alcohol Use: No Hx Substance Use: No Preferred Language: Greek Communication Ability: Effective Visual Impairment: No Limitations Hearing Ability: Normal Zig Zag Stitcher Required: No Beliefs That Will Affect Care: None marital status: Current Living Situation: Spouse 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 How many Children do You have: 0 Feels Safe at Home: Yes Childhood Exposure to Second-Hand Smoke: No Diet: regular Diet Comment: regular caffeine: Yes during the past year weight has: remained stable Dental Care, Regularly: Yes Physical Activity Frequency: Other Seatbelt Use: sometimes Sunscreen Use: No Assistive Devices: Glasses Allergies Allergies Allergy/AdvReac Type Severity Reaction Status Date / Time No Known Allergies Allergy Verified 06/28/24 13:21 Home Meds Home Medications Medication Instructions Recorded Confirmed multivitamin 1 tab PO QAM 01/04/19 06/28/24 amiloride 5 mg tablet 5 mg PO QAM 06/28/24 06/28/24 carbidopa 25 mg-levodopa 100 mg 1 tab PO 5XD 06/28/24 06/28/24 tablet metoprolol tartrate 25 mg tablet 25 mg PO QAM 06/28/24 06/28/24 Previous Rx's Medication Instructions Recorded alfuzosin 10 mg tablet,extended 10 mg PO QAM #90 tabs 08/10/23 release 24 hr atorvastatin 20 mg tablet 20 mg PO QPM #90 tabs 09/09/23 magnesium oxide 400 mg (241.3 mg 400 mg PO TID #270 tabs 10/16/23 magnesium) tablet sitagliptin phosphate 50 1 tab PO BID 90 days #180 tabs 01/07/24 mg-metformin 1,000 mg tablet entacapone 200 mg tablet 200 mg PO BID #60 tabs 06/06/24 Results & Data (ED) Vital Signs Vital Signs - 24 hr 06/28/24 09:54 06/28/24 10:00 06/28/24 10:22 Pulse Rate 145 H 144 H Pulse Rate from SpO2 Sensor Respiratory Rate 13 Respiratory Effort / Characteristics Non-Labored Spontaneous Respiratory Depth Normal Respiratory Pattern Regular Blood Pressure 129/107 H Blood Pressure Mean 114 Pulse Oximetry 99 Oxygen Delivery Method Room Air Room Air Sepsis Recent Fever Within 48 Hours No Sepsis New/Unexplained Change in Mental Status No Sepsis Action Taken by Nursing No Action Required 06/28/24 10:30 06/28/24 10:59 06/28/24 11:06 Pulse Rate 146 H 136 H Pulse Rate from SpO2 Sensor 136 H Respiratory Rate 16 16 Respiratory Effort / Characteristics Respiratory Depth Respiratory Pattern Blood Pressure 120/92 84/63 L Blood Pressure Mean 99 72 Pulse Oximetry 97 98 Oxygen Delivery Method Sepsis Recent Fever Within 48 Hours Sepsis New/Unexplained Change in Mental Status Sepsis Action Taken by Nursing 06/28/24 11:12 06/28/24 11:15 06/28/24 11:24 Pulse Rate 139 H Pulse Rate from SpO2 Sensor 139 H Respiratory Rate 18 Respiratory Effort / Characteristics Respiratory Depth Respiratory Pattern Blood Pressure 98/81 L 100/83 Blood Pressure Mean 86 86 Pulse Oximetry 98 Oxygen Delivery Method Sepsis Recent Fever Within 48 Hours Sepsis New/Unexplained Change in Mental Status Sepsis Action Taken by Nursing 06/28/24 11:30 06/28/24 11:39 06/28/24 11:45 Pulse Rate 140 H Pulse Rate from SpO2 Sensor 140 H Respiratory Rate 18 Respiratory Effort / Characteristics Respiratory Depth Respiratory Pattern Blood Pressure 101/81 108/88 Blood Pressure Mean 90 94 Pulse Oximetry 98 Oxygen Delivery Method Sepsis Recent Fever Within 48 Hours Sepsis New/Unexplained Change in Mental Status Sepsis Action Taken by Nursing 06/28/24 12:21 06/28/24 12:30 06/28/24 12:45 Pulse Rate 138 H Pulse Rate from SpO2 Sensor 139 H Respiratory Rate 12 Respiratory Effort / Characteristics Respiratory Depth Respiratory Pattern Blood Pressure 109/87 129/95 Blood Pressure Mean 91 111 Pulse Oximetry 100 Oxygen Delivery Method Sepsis Recent Fever Within 48 Hours Sepsis New/Unexplained Change in Mental Status Sepsis Action Taken by Nursing 06/28/24 12:45 06/28/24 12:45 Pulse Rate 139 H Pulse Rate from SpO2 Sensor 139 H Respiratory Rate 15 Respiratory Effort / Characteristics Respiratory Depth Respiratory Pattern Blood Pressure 129/95 Blood Pressure Mean 111 Pulse Oximetry 98 Oxygen Delivery Method Sepsis Recent Fever Within 48 Hours Sepsis New/Unexplained Change in Mental Status Sepsis Action Taken by Nursing Laboratory Data 06/28/24 10:04 06/28/24 10:04 Lab Results 06/28/24 Range/Units 10:04 WBC 8.66 (4.8-10.8) K/ul RBC 4.27 L (4.70-6.10) M/uL Hgb 12.6 L (14.0-18.0) g/dl Hct 38.8 L (42.0-52.0) % MCV 90.9 (80.0-100.0) fL MCH 29.5 (25.0-34.0) pg MCHC 32.5 (32.0-36.0) g/dL RDW Std Deviation 43.8 (36.4-46.3) fL RDW Coeff of Keke 13.2 (11.5-14.5) % Plt Count 195 (130-400) K/uL MPV 11.1 (9.4-12.4) fL Immature Gran % (Auto) 0.2 % Neut % (Auto) 76.2 % Lymph % (Auto) 16.1 % [place] % (Auto) 6.5 % Eos % (Auto) 0.8 % Baso % (Auto) 0.2 % Neut # (Auto) 6.60 H (1.40-6.50) K/uL Lymph # (Auto) 1.39 (1.20-3.40) K/uL [place] # (Auto) 0.56 (0.11-0.59) K/uL Eos # (Auto) 0.07 (0.00-0.50) K/uL Baso # (Auto) 0.02 (0.00-0.20) K/uL Immature Gran # (Auto) 0.02 (0.01-0.20) K/uL PT 11.2 (9.0-12.0) Seconds INR 1.0 (0.9-1.1) APTT 24 (21-31) Seconds PTT Ratio 0.9 Sodium 139 (136-145) mmol/L Potassium 4.9 (3.5-5.1) mmol/L Chloride 109 H (98-107) mmol/L Carbon Dioxide 27 (21-32) mmol/L Anion Gap 3 (3-11) BUN 39 H (6-23) mg/dl Creatinine 1.50 H (0.6-1.4) mg/dl Est Cr Clr Drug Dosing 53.5 ml/min eGFR 49.77 BUN/Creatinine Ratio 26.0 H (10-20) Glucose 144 H (70-99(Fasting)) mg/dl Calcium 9.5 (8.6-10.3) mg/dl Magnesium 1.8 (1.7-2.4) mg/dl Total Bilirubin 0.5 (0.2-1.0) mg/dl AST 18 (13-39) U/L ALT 4 L (7-52) U/L Alkaline Phosphatase 70 (34-104) U/L Troponin I High Sens 17.9 (0-20) pg/ml Total Protein 7.5 (6.0-8.3) gm/dl Albumin 4.3 (3.4-5.0) gm/dl Globulin 3.2 (2.5-4.0) gm/dl Albumin/Globulin Ratio 1.3 (0.9-2) TSH 4.048 (0.300-4.500) uIu/ml Administered Medications Heparin Sodium/Dextrose (Heparin 75148 Unit/500 Ml D5w) 25,000 units in 500 mls @ 20 mls/hr IV .Q24H [facility]; Protocol Stop: 07/28/24 12:59 Last Admin: 06/28/24 13:33 Dose: 1,000 units/hr, 20 mls/hr Documented By: DS Co-signed By: BK Discontinued Medications Amiodarone HCl (Amiodarone Iv Bolus & Drip) 1 each IV NOW STA; Protocol Stop: 06/28/24 10:36 Last Admin: 06/28/24 16:31 Dose: Not Given Documented By: ESL Heparin Sodium (Porcine) (Heparin Sod (Porcine) 1000 Unit/Ml) 1 units IV NOW ONE Stop: 06/28/24 12:48 Last Admin: 06/28/24 13:33 Dose: 4,000 units Documented By: DO Co-signed By: NOVA Heparin Sodium/Dextrose (Heparin Iv Adult Wt-Based Low-Dose W/ Initial Bolus Protocol) 1 each IV NOW STA; Protocol Stop: 06/28/24 12:33 Last Admin: 06/28/24 16:30 Dose: Not Given Documented By: BRIANA Amiodarone HCl/Dextrose (Nexterone / D5w) 150 mg in 100 mls @ 600 mls/hr IV NOW STA Stop: 06/28/24 10:44 Last Infusion: 06/28/24 11:12 Dose: Infused Documented By: EDWARD Co-signed By: DO Admin: 06/28/24 10:46 Dose: 600 mls/hr Documented By: EDWARD Co-signed By: IZZY Amiodarone HCl/Dextrose (Nexterone / D5w) 360 mg in 200 mls @ 33.333 mls/hr IV ONE ONE Stop: 06/28/24 16:44 Last Admin: 06/28/24 11:23 Dose: 1 mg/min, 33.3 mls/hr Documented By: DO Co-signed By: CORKY Miscellaneous (Stat Iv Infusion Titration Per Protocol) 1 each N/A NOW STA Stop: 06/28/24 10:36 Last Admin: 06/28/24 16:31 Dose: Not Given Documented By: BRIANA Imaging Data Radiologist's Impression: Chest X-Ray 06/28/24 10:11 XR chest 1V portable CLINICAL HISTORY: Dysrhythmia COMPARISON STUDY: None FINDINGS: Heart size and pulmonary vasculature are normal. No effusion, consolidation, or pneumothorax. IMPRESSION: No acute findings. ACT 112: Negative or not required by law. Electronically signed by: Ezequiel Cheney M.D. 06/28/2024 10:35 AM Discharge Plan Visit Data Chief Complaint: Tachycardia Stated Complaint: DOC REF, TACHYCARDIA ED Provider: Keturah Pearl Discharge Problem: Atrial flutter by electrocardiography, CKD (chronic kidney disease) Patient Disposition: Admitted As Inpatient Discharge Instructions Interventions: ED Discharge Assessment Last Done: 06/28/24 14:56
--- NOTE | 2024-06-28 10:36 | XRay Report ---
XR chest 1V portable CLINICAL HISTORY: Dysrhythmia COMPARISON STUDY: None FINDINGS: Heart size and pulmonary vasculature are normal. No effusion, consolidation, or pneumothora x. IMPRESSION: No acute findings. ACT 112: Negative or not required by law. Electronically signed by: Ezequiel Cheney M.D. 06/28/2024 10:35 AM
[2024-06-28] MEDS: AMIODARONE / D5W 150 MG/100 ML BAG IV STA (10:46)
[2024-06-28 10:49] LABS: Albumin Globulin Ratio 1.3 (0.9-2); Albumin Level 4.3 gm/dl (3.4-5.0); Bilirubin,Total 0.5 mg/dl (0.2-1.0); Calcium 9.5 mg/dl (8.6-10.3); Creatinine Clr Calc Pharmacy 53.5 ml/min; Globulin 3.2 gm/dl (2.5-4.0); Magnesium 1.8 mg/dl (1.7-2.4); Potassium 4.9 mmol/L (3.5-5.1); Total Protein 7.5 gm/dl (6.0-8.3)
[2024-06-28 10:54] LABS: Troponin I High Sensitivity 17.9 pg/ml (0-20)
[2024-06-28 11:05] LABS: Thyroid Stimulating Hormone 4.048 uIu/ml (0.300-4.500)
[2024-06-28] MEDS: AMIODARONE / D5W 360 MG/200 ML BAG IV ONE (11:23)
[2024-06-28] MEDS ORDERED: ACETAMINOPHEN 325 MG TAB PO PRN (12:46)
--- NOTE | 2024-06-28 12:58 | History & Physical Report ---
Date of Service June 28, 2024 Assessment & Plan (1) Atrial fibrillation: Plan: Assessment: 1. New onset atrial fibrillation. Cardiology/electrophysiology consulted. Recommending amiodarone drip. Heparin drip. Cardiology consulted. Echocardiogram from today showed a EF of approximately 40%. 2. Mild hypomagnesemia. Give 2 g of mag sulfate. Reassess. 3. Cardiomyopathy. EF 40 to 45% on echo today. Cardiology following. 4. Parkinson disease. Order home meds when reconciled. 5. Spinal stenosis. Following with spine surgery. Plan is for back surgery in the near future. Was scheduled in August. 6. Hypertension. Continue home meds when reconciled. 7. Diabetes mellitus type 2. [id number]. Sliding scale ordered. 8. Mild chronic anemia. Monitor carefully. 9. Hyperlipidemia. Continue statin therapy. Plan: As discussed above. Please refer to orders for further planning. History of Present Illness Chief Complaint: New onset atrial fibrillation Primary Care Provider: RICH Jc This is a 68-year-old male who presented to cardiology's office today to undergo preoperative evaluation for back surgery. Echocardiogram performed in the office demonstrated new onset atrial fibrillation. Also showed a left ventricular ejection fraction approximate 40%. The patient was directed to the ER by cardiology. It is noted that the patient is completely asymptomatic. He denies any chest pain shortness of breath excetra Recommendations from cardiology was for amiodarone bolus and drip. If no cardioversion to admit and continue amiodarone drip. Patient has not responded to the IV amiodarone bolus. Therefore recontacted for admission for new onset atrial fibrillation. We have recommended a heparin drip as well. Laboratory studies are reassuring. He has some mild chronic anemia which appears stable. His electrolytes are satisfactory. Magnesium low normal at 1.8. Will give 2 g of magnesium sulfate given the new dysrhythmia. Allergies Allergy/AdvReac Type Severity Reaction Status Date / Time No Known Allergies Allergy Verified 03/21/24 09:12 Home Medications Medication Instructions Recorded Confirmed Type multivitamin 1 tab PO QAM 01/04/19 06/06/24 History alfuzosin 10 mg tablet,extended 10 mg PO QAM #90 tabs 08/10/23 06/06/24 Rx release 24 hr atorvastatin 20 mg tablet 20 mg PO QPM #90 tabs 09/09/23 06/06/24 Rx magnesium oxide 400 mg (241.3 mg 400 mg PO TID #270 tabs 10/16/23 06/06/24 Rx magnesium) tablet carbidopa 25 mg-levodopa 100 mg 1 tab PO .five times a day 30 days 01/05/24 06/06/24 Rx tablet #150 tabs sitagliptin phosphate 50 1 tab PO BID 90 days #180 tabs 01/07/24 06/06/24 Rx mg-metformin 1,000 mg tablet metoprolol tartrate 25 mg tablet 25 mg PO DAILY #90 tabs 03/28/24 06/06/24 Rx amiloride 5 mg tablet 5 mg PO DAILY #90 tabs 04/14/24 06/06/24 Rx entacapone 200 mg tablet 200 mg PO BID #60 tabs 06/06/24 06/06/24 Rx Past Med/Surg History Problem List (Updated 06/28/24 @ 12:54 by Yared Arriaga, PhD, DO) Atrial fibrillation Spinal stenosis, lumbar region with neurogenic claudication Cervical pain (neck) Osteopenia Lumbar facet joint syndrome Sacroiliitis Hypomagnesemia Kidney stones, calcium oxalate Vitamin D deficiency Tremor Parkinson disease Stenosis of cavernous portion of right internal carotid artery History of colon polyps Anemia Neurogenic claudication due to lumbar spinal stenosis Status post lumbar surgery L5-S1 Decompression and Fusion, L2-L5 Hardware Removal, Spinal Cord Monitoring, Application of Bone Morphogenetic Protein and Allograft - Adalid Rock DO Bilateral cataracts Left ventricular hypertrophy Echocardiogram 12/24/2018-LVEF 45-50 percent, severe inferolateral hypokinesis. Mid base to mid inferior hypokinesis. Echocardiogram 01/25/2019-mild concentric left ventricular hypertrophy with normal systolic function. Quijano treadmill score 6; met level achieved was 7 Hx of pyloric stenosis s/p surgical repair Type 2 diabetes mellitus NIDDM Sleep apnea inconclusive sleep study, no device prescribed Lumbar radiculopathy Dyslipidemia Carotid artery plaque Mild nonobstructive plaque noted on 2014 carotid doppler Chronic osteoarthritis Enlarged prostate with lower urinary tract symptoms (LUTS) Hypertension Medical History Hearing loss Obesity Surgical History History of lithotripsy History of non-cataract eye surgery History of cataract surgery History of back surgery Hx of colonoscopy History of partial knee replacement History of lumbar fusion History of gastric surgery Family History Father Coronary heart disease Myocardial infarction Diabetes Heart disease Sister Family history of gallbladder disease Diabetes Other Family history of kidney stones Denies family history of Ovarian cancer Prostate cancer Breast cancer Lung cancer Colorectal cancer Social History Smoking Status: Never smoker Second Hand Exposure: Yes (WHEN HE WAS WORKING); Do You Dip or Chew Tobacco: No; Hx Alcohol Use: No Hx Substance Use: No Preferred Language: Citizen Of [place] Communication Ability: Effective Visual Impairment: No Limitations Hearing Ability: Normal Counter Maker Required: No Beliefs That Will Affect Care: None marital status: Current Living Situation: Spouse 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 Physical Exam Physical Exam: In General: In general this is a pleasant 68-year-old male who is alert and oriented x 3 at the time my exam. He is asymptomatic. He is accompanied by his at the time my examination. HEENT: Normocephalic atraumatic pupils are equal round and reactive to light bilaterally. No scleral icterus no conjunctival injection external auditory canals are patent septum is in the midline nose is without discharge oral mucosa is pink and moist without lesion. NECK: Supple no rigidity no lymphadenopathy no thyromegaly no carotid bruits no JVD no masses. HEART: Irregular rate and rhythm at the time of my exam with a rate of approximately 130 to 140 bpm. I do not appreciate murmur or rub.. LUNGS: Clear to auscultation bilaterally and anteriorly with no evidence of adventitious sounds/wheezes rales or rhonchi. ABDOMEN: Soft nontender, no rebound, no peritoneal signs, positive bowel sounds, no appreciable organomegaly. EXTREMITIES: Intact, no peripheral cyanosis, clubbing or edema. Strength is 5 out of 5 in extremities x4, no pathological reflexes. Patient does have a tremor of Parkinson's of the right upper extremity approximately 60 Hz. NEUROLOGICAL: Cranial nerves II through XII are grossly intact with no focal deficit elicited upon examination. Tremor as discussed above Results & Data Results & Data Vital Signs (Past 12 Hours) Vital Signs Pulse Resp BP Pulse Ox O2 Del Method 06/28/24 12:45 139 H 15 98 06/28/24 12:45 129/95 06/28/24 12:30 109/87 06/28/24 12:21 138 H 12 100 06/28/24 11:45 108/88 06/28/24 11:39 140 H 18 98 06/28/24 11:30 101/81 06/28/24 11:24 139 H 18 98 06/28/24 11:15 100/83 06/28/24 11:12 98/81 L 06/28/24 11:06 136 H 16 98 06/28/24 10:59 84/63 L 06/28/24 10:30 146 H 16 120/92 97 06/28/24 10:22 144 H 06/28/24 10:00 Room Air 06/28/24 09:54 145 H 13 129/107 H 99 Room Air Code Status & VTE Plan Code Status Full code. I personally discussed with patient today at the bedside VTE Prophylaxis Plan VTE Prophylaxis will be ordered: Yes PG Care Time/CCT Total # of Minutes Spent Total Time Spent with Patient: Total time spent is greater than 50% in coordination of care (as documented) at patient's floor/unit and/or counseling patient: Coding Level of Care Code 25167 INT INP/OBS CARE 3/75MIN Diagnoses Atrial fibrillation I48.91
[2024-06-28] MEDS ORDERED: CARBOHYDRATES FOR HYPOGLYCEMIA PO PRN (13:00)
[2024-06-28] MEDS ORDERED: GLUCOSE 10 TAB/TUBE PO PRN (13:00)
[2024-06-28] MEDS ORDERED: GLUCOSE 40% GEL 15 GM TUBE PO PRN (13:00)
[2024-06-28] MEDS ORDERED: GLUCAGON FOR INJ 1 MG VIAL SQ PRN (13:00)
[2024-06-28] MEDS ORDERED: DEXTROSE 50% 50 ML SYRINGE IV PRN (13:00)
[2024-06-28] MEDS: HEPARIN SOD (PORCINE) 1000 UNIT/ML IV ONE (13:33)
[2024-06-28] MEDS: HEPARIN 25000 UNIT/500 ML D5W 25,000 UNITS/500 ML BAG IV SCH (13:33)
[2024-06-28 13:41] LABS: Partial Thromboplastin Ratio 0.9; Partial Thromboplastin Time 24 Seconds (21-31); Prothrombin Time 11.2 Seconds (9.0-12.0)
--- NOTE | 2024-06-28 16:05 | Electrocardiogram Report ---
Test Reason : Blood Pressure : */* mmHG Vent. Rate : 145 BPM Atrial Rate : 145 BPM P-R Int : 132 ms QRS Dur : 108 ms QT Int : 258 ms P-R-T Axes : 95 7 16 degrees QTcB Int : 400 ms Sinus tachycardia Otherwise normal ECG When compared with ECG of 10-Dec-2017 13:39, Vent. rate has increased by 58 bpm Confirmed by Jos Bowles ([id number]) on 06/28/2024 4:05:41 PM Referred By: REFERRED SELF Confirmed By: Jos Bowles
[2024-06-28] MEDS: Heparin IV Adult Wt-Based Low-Dose w/ INITIAL Bolus Protocol IV STA (16:30)
[2024-06-28] MEDS: STAT IV Infusion **Titration per Protocol STA (16:31)
[2024-06-28] MEDS: AMIODARONE IV BOLUS & DRIP IV STA (16:31)
[2024-06-28] MEDS: MAGNESIUM SULFATE / D5W 1 GM/100 ML BAG IV SCH (17:21)
[2024-06-28] MEDS: CARBIDOPA/LEVODOPA 25/100MG TAB PO SCH (17:24)
[2024-06-28] MEDS: MAGNESIUM OXIDE 400 MG TAB PO SCH (17:24)
[2024-06-28] MEDS: AMIODARONE / D5W 360 MG/200 ML BAG IV SCH (17:27)
[2024-06-28] MEDS: INSULIN ASPART PER UNIT CHARGE SC SCH (18:33)
[2024-06-28 20:31] LABS: ANTI-Xa, UFH(UnfractionatedHep 0.31 IU/ml (0.3-0.7)
[2024-06-28] MEDS: ATORVASTATIN 20 MG TAB PO SCH (21:10)
[2024-06-28] MEDS: ENTACAPONE 200 MG TAB PO SCH (21:11)
[2024-06-28] MEDS: LANTUS PER UNIT CHARGE SQ SCH (21:11)
[2024-06-29 06:09] LABS: Basophils # (auto) 0.02 K/uL (0.00-0.20); Basophils % (auto) 0.3 %; Eosinophils % (auto) 1.4 %; Hematocrit (blood only) 35.6 % (42.0-52.0); Hemoglobin 11.5 g/dl (14.0-18.0); Immature Granulocytes # (auto) 0.03 K/uL (0.01-0.20); Immature Granulocytes % (auto) 0.4 %; Lymphocytes # (auto) 1.89 K/uL (1.20-3.40); Mean Corpuscular Hemoglobin 28.8 pg (25.0-34.0); Mean Corpuscular Hgb Conc 32.3 g/dL (32.0-36.0); Mean Platelet Volume 10.9 fL (9.4-12.4); Monocytes # (auto) 0.52 K/uL (0.11-0.59); Monocytes % (auto) 7.2 %; Neutrophils % (auto) 64.7 %; Platelet Count 163 K/uL (130-400); RDW Coefficient of Variation 13.3 % (11.5-14.5); RDW Standard Deviation 43.8 fL (36.4-46.3); White Blood Count 7.26 K/ul (4.8-10.8)
[2024-06-29 06:17] LABS: Anion Gap 5 (3-11); Blood Urea Nitrogen 37 mg/dl (6-23); Calcium 8.9 mg/dl (8.6-10.3); Carbon Dioxide 26 mmol/L (21-32); Chloride 107 mmol/L (98-107); Creatinine Clr Calc Pharmacy 48.7 ml/min; Glucose 124 mg/dl (70-99(Fasting)); Potassium 4.5 mmol/L (3.5-5.1); Sodium 138 mmol/L (136-145)
[2024-06-29 06:18] LABS: Alanine Aminotransferase < 3 U/L (7-52); Albumin Globulin Ratio 1.4 (0.9-2); Albumin Level 3.8 gm/dl (3.4-5.0); Alkaline Phosphatase 62 U/L (34-104); Aspartate Aminotransferase 16 U/L (13-39); Bilirubin,Total 0.3 mg/dl (0.2-1.0); Chol HDL Ratio 2.4 (0-5); Cholesterol 105 mg/dl (0-200); Globulin 2.8 gm/dl (2.5-4.0); HDL Cholesterol 43 mg/dl; LDL Cholesterol Calculated 53 mg/dl; Magnesium 2.1 mg/dl (1.7-2.4); Total Protein 6.6 gm/dl (6.0-8.3); Triglycerides 47 mg/dl (0-150); VLDL Cholesterol 9 mg/dl (0-30)
[2024-06-29 06:39] LABS: ANTI-Xa, UFH(UnfractionatedHep 0.41 IU/ml (0.3-0.7)
[2024-06-29] MEDS: TAMSULOSIN HCL 0.4 MG CAP PO SCH (08:04)
[2024-06-29] MEDS: METOPROLOL TARTRATE 25 MG TAB PO SCH ×2 (08:05→22:28)
[2024-06-29] MEDS: aMILoride HCL 5 MG TAB PO SCH (08:05)
[2024-06-29 11:08] LABS: Estimated Average Glucose 163 mg/dl; Hemoglobin A1C 7.3 % (4.5-5.6)
--- NOTE | 2024-06-29 12:25 | Hospitalist Progress Note ---
Date of Service June 29, 2024 Assessment & Plan (1) Atrial fibrillation: Plan: 68-year-old male with past medical history of Parkinson's, HFrEF EF 40-45%, DM2, hypertension, mild chronic anemia who presented with new onset A-fib with RVR and he was started on heparin drip and amiodarone drip on admission New onset A-fib/a flutter with RVR With a flutter 2-1 RVR on admission. Overnight events has been intermittently between A-fib and a flutter ranging from rate 54909 w/ A-fib and intermittent 2:1-4:1 flutter. Suboptimal control requiring further inpatient optimization. Echo with EF 40-45%? Rate related. Last 45-50% in 2019. Stress echo normal at that time. Clinically without CHF, no hypoxia chest x-ray is clear Magnesium optimized Continue amiodarone gtt. Heparinized on admission. Denies history of bleeding/ulcers. Some increased fall risk with underlying parkinsonism and spinal stenosis however currently does well and is a [id number] of 5. Ongoing anticoagulation is recommended. - Anticipate transition to Eliquis when stable / on discharge. Cardiology consulted, following - Metoprolol uptitrated to BID 25mg Parkinson's disease Continue entacapone, Sinemet PT/OT pending Some upper extremity tremor on exam Does not tolerate Sinemet ER due to hallucinations, home dosing continued Hypomagnesemia Continue magnesium supplement, amiloride temporarily held Replete to maintain goal of 2.0 as needed DM2 [id number] Continue SSI Adequate glycemic control 06/29 Goal range 101750 Last A1c 7.3% Hyperlipidemia Continue statin Mild anemia Chronic, stable. 11.5 on 06/29. No clinical bleeding Spinal stenosis History of L5-S1 decompression, L2-L5 hardware removal, surgical intervention 03/23/[address] Rock Patient has pending follow-up with [facility] for possible thoracic/cervical interventions. Has declined stimulator in the past. No acute change in management of this however if he does proceed for further surgical intervention will need to hold/coordinate anticoagulation at that time DVT prophylaxis: Anticoagulated Disposition: PCU CODE STATUS: Full code Diet: Heart healthy/DM2 Admission and Anticipated Discharge Date Admission Date: June 28, 2024 Yohan Lynn is seen at the bedside. He reports he feels okay, and he thinks better than yesterday although notes he did not feel badly and did not really notice his heart racing before coming in. 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 He denies chest pain, chest pressure, palpitations, lightheadedness, dizziness today. Denies fatigue. Denies fever chills. Eating breakfast comfortably at time of assessment Physical Exam Physical Exam: General: A&Ox3. NAD. Cooperative. HEENT: Atraumatic, normocephalic. Vision and hearing grossly intact Pulm: CTAB A&P. -wheezes, -rales, -rhonchi. Symmetrical chest rise. No increased work of breathing. No respiratory distress. Cardiac: irir, rate 6970, -mrg. Radial pulses intact and symmetrical. On re- evaluation irregular with rates 100-110. Normotensive. Abdominal: Nontender, nondistended, soft. BS present. Extremities: Strength and sensation intact in upper and lower extremities bilaterally. Slight bilateral upper extremity resting tremor with slight cogwheeling on exam. No edema. Results & Data Results & Data Vital Signs (Past 12 Hours) Vital Signs Temp Pulse Pulse Resp BP Pulse Ox O2 Del Method 06/29/24 08:11 36.5 C 135 H 18 131/91 98 Room Air 06/29/24 07:20 70 06/29/24 03:17 36.5 C 70 17 113/75 98 Room Air 06/29/24 00:14 72 PG Care Time/CCT Total # of Minutes Spent Total Time Spent with Patient: Total time spent is greater than 50% in coordination of care (as documented) at patient's floor/unit and/or counseling patient: Coding Level of Care Code 99626 SUB INP/OBS CARE 3/50MIN Diagnoses Atrial fibrillation I48.91
--- NOTE | 2024-06-29 14:11 | Cardiology Consultation ---
Date of Consultation June 29, 2024 Assessment & Plan (1) Atrial flutter: (2) Cardiomyopathy: (3) Hypertension: (4) Mitral regurgitation: (5) CKD (chronic kidney disease): (6) Anemia: Plan ASSESSMENT/PLAN: 1. Atrial flutter: Completely asymptomatic. At times with 4-1 AV conduction, with acceptable heart rates. Has been on amiodarone since presentation and also metoprolol 25 mg twice daily. Continue anticoagulation for stroke risk reduction. Given that the onset is unclear as he does not check his heart rate and is asymptomatic, will discontinue amiodarone. Recommend attempting to obtain sinus rhythm, but after evaluating for left atrial thrombus. Recommend transesophageal echo followed by either DC cardioversion or possibly atrial flutter ablation, if EP is available. Discussed the diagnosis and treatment strategies. Risk and benefits of transesophageal echo and DC cardioversion discussed with he and his . He is agreeable. N.p.o. after midnight. Communicated with electrophysiology who will determine if atrial flutter ablation is available tomorrow. Appreciate EP assistance. Continue anticoagulation for stroke risk reduction. 2. Cardiomyopathy: Likely tachycardia induced. Recommend rastafari of sinus rhythm as above. Recommend metoprolol succinate in place of metoprolol tartrate on discharge. He is euvolemic. NYHA class I. Recommend ANISH inhibitor if no contraindication prior to discharge. Repeat echo in the near future after tachycardia has resolved. Secondary workup can be completed if LV systolic function does not normalize after sinus rhythm attained. 3. Hypertension: Blood pressure mostly normotensive. Plan as above. 4. Mitral regurgitation: Nonsevere. Can be monitored in the outpatient setting. 5. CKD: Acute renal insufficiency. May be related to hypoperfusion as there has been intermittent hypotension. As per primary hospitalist service. 6. Anemia: Monitor for bleeding. Has had hemoglobins in the upper 7 and 8 range in March 2019, which appears to correlate with back surgery. 7. Disposition: Cardiology will continue to follow. Patient care communicated with Dr. Ramírez of the primary hospitalist service. Highly complex medical issues. Thank you for allowing me to participate in the care of your patient. Please call for any other questions or concerns. Sincerely, Josue Guzman M.D. History of Present Illness Reason for Consultation: atrial flutter Requesting Physician: Yared Arriaga DO Attending Physician: Jose Ramírez MD History of Present Illness Mr. Wilson is a very pleasant 68-year-old gentleman with a history significant for atrial flutter, cardiomyopathy, Parkinson's, type 2 diabetes, dyslipidemia, hypertension, and spinal stenosis. He was hospitalized on 06/28/2024 after presenting for an outpatient echo on the same date and was noted to have reduced LV systolic function and atrial flutter with rapid ventricular response. He was sent to the ER for further evaluation. It was felt that it was new onset within 24 hours and he was placed on amiodarone. He was completely asymptomatic in regards to the atrial flutter. He recalls that during a nephrology appointment on 04/14/2024, there was difficulty in obtaining his pulse however his heart rate was charted as 62 bpm. He has checked his heart rate in the past but has not checked it recently. He recalls that it typically runs in the 80s bpm. He denies chest pain, shortness of breath, syncope, near syncope, palpitations, edema, melena, hematochezia, or hematuria. He remains active but chronic back issues limits activity to some degree. While here on amiodarone, his heart rate has been intermittently elevated when atrial flutter is with 2-1 AV block that at times the block is 4-1 AV block and his heart rate is normal. Review of systems: As above. Family history: Father had VT at the age of 52. Social history: He denies smoking. He denies alcohol or drug abuse. He lives at home with his , Gabi. No children. 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 His was present at the bedside. Allergies Allergy/AdvReac Type Severity Reaction Status Date / Time No Known Allergies Allergy Verified 06/28/24 13:21 Home Medications Medication Instructions Recorded Confirmed Type multivitamin 1 tab PO QAM 01/04/19 06/28/24 History alfuzosin 10 mg tablet,extended 10 mg PO QAM #90 tabs 08/10/23 06/28/24 Rx release 24 hr atorvastatin 20 mg tablet 20 mg PO QPM #90 tabs 09/09/23 06/28/24 Rx magnesium oxide 400 mg (241.3 mg 400 mg PO TID #270 tabs 10/16/23 06/28/24 Rx magnesium) tablet sitagliptin phosphate 50 1 tab PO BID 90 days #180 tabs 01/07/24 06/28/24 Rx mg-metformin 1,000 mg tablet entacapone 200 mg tablet 200 mg PO BID #60 tabs 06/06/24 06/28/24 Rx amiloride 5 mg tablet 5 mg PO QAM 06/28/24 06/28/24 History carbidopa 25 mg-levodopa 100 mg 1 tab PO 5XD 06/28/24 06/28/24 History tablet metoprolol tartrate 25 mg tablet 25 mg PO QAM 06/28/24 06/28/24 History Problem List (Updated 06/29/24 @ 21:05 by Franki Guzman MD) Mitral regurgitation Cardiomyopathy Atrial flutter CKD (chronic kidney disease) (Acute) Atrial flutter by electrocardiography (Acute) Spinal stenosis, lumbar region with neurogenic claudication Cervical pain (neck) Osteopenia Lumbar facet joint syndrome Sacroiliitis Hypomagnesemia Kidney stones, calcium oxalate Vitamin D deficiency Tremor Parkinson disease Stenosis of cavernous portion of right internal carotid artery History of colon polyps Anemia Neurogenic claudication due to lumbar spinal stenosis Status post lumbar surgery L5-S1 Decompression and Fusion, L2-L5 Hardware Removal, Spinal Cord Monitoring, Application of Bone Morphogenetic Protein and Allograft - [place], Bilateral cataracts Left ventricular hypertrophy Echocardiogram 12/24/2018-LVEF 45-50 percent, severe inferolateral hypokinesis. Mid base to mid inferior hypokinesis. Echocardiogram 01/25/2019-mild concentric left ventricular hypertrophy with normal systolic function. Quijano treadmill score 6; met level achieved was 7 Hx of pyloric stenosis s/p surgical repair Type 2 diabetes mellitus NIDDM Sleep apnea inconclusive sleep study, no device prescribed Lumbar radiculopathy Dyslipidemia Carotid artery plaque Mild nonobstructive plaque noted on 2014 carotid doppler Chronic osteoarthritis Enlarged prostate with lower urinary tract symptoms (LUTS) Hypertension Patient History Medical History Hearing loss Obesity Surgical History History of lithotripsy History of non-cataract eye surgery History of cataract surgery History of back surgery Hx of colonoscopy History of partial knee replacement History of lumbar fusion History of gastric surgery Family History Father Coronary heart disease Myocardial infarction Diabetes Heart disease Sister Family history of gallbladder disease Diabetes Other Family history of kidney stones Denies family history of Ovarian cancer Prostate cancer Breast cancer Lung cancer Colorectal cancer Social History Smoking Status: Never smoker Second Hand Exposure: Yes (WHEN HE WAS WORKING); Do You Dip or Chew Tobacco: No; Hx Alcohol Use: No Hx Substance Use: No Preferred Language: Italian Communication Ability: Effective Visual Impairment: No Limitations Hearing Ability: Normal Dental Laboratory Technology Teacher Required: Yes Beliefs That Will Affect Care: None marital status: Current Living Situation: Spouse Current Living Situation Comment: Home with spouse 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 Alert. HEENT: Anicteric sclera. Neck: No JVD. No bruits. Normal carotid upstrokes bilaterally. Cardiac: Irregularly irregular. Normal S1-S2. No murmurs, rubs, or gallops. Pulmonary: Clear to auscultation bilaterally without wheezes, rales, or rhonchi. Abdomen: Soft, nontender, nondistended, with normoactive bowel sounds. No bruits noted. Extremities: 2+ radial pulses bilaterally. 2+ posterior tibialis pulses bilaterally. No edema or cyanosis. Results & Data Vital Signs (Past 12 Hours) Vital Signs Temp Pulse Pulse Resp BP Pulse Ox O2 Del Method 06/29/24 12:31 36.3 C L 79 19 100/69 94 Room Air 06/29/24 08:11 36.5 C 135 H 18 131/91 98 Room Air 06/29/24 07:20 70 06/29/24 03:17 36.5 C 70 17 113/75 98 Room Air Intake & Output 06/27/24 06/28/24 06/29/24 06/30/24 06:59 06:59 06:59 06:59 Intake Total 1260 / 1260 892.607 / 892.607 Balance 1260 / 1260 892.607 / 892.607 Weight 203 lb 7.787 oz Laboratory Results Laboratory Results - last 24 hr 06/28/24 06/28/24 06/28/24 14:35 16:52 18:38 WBC RBC Hgb Hct MCV MCH MCHC RDW Std Deviation RDW Coeff of Keke Plt Count MPV Immature Gran % (Auto) Neut % (Auto) Lymph % (Auto) Duc[place] % (Auto) Eos % (Auto) Baso % (Auto) Neut # (Auto) Lymph # (Auto) [place] # (Auto) Eos # (Auto) Baso # (Auto) Immature Gran # (Auto) Heparin Anti-Xa, Unfract 0.31 Sodium Potassium Chloride Carbon Dioxide Anion Gap BUN Creatinine Est Cr Clr Drug Dosing eGFR BUN/Creatinine Ratio Glucose POC Glucose 168 H Estimat Average Glucose Hemoglobin A1c Calcium Magnesium Total Bilirubin AST ALT Alkaline Phosphatase Troponin I High Sens 18.9 13.6 D Total Protein Albumin Globulin Albumin/Globulin Ratio Triglycerides Cholesterol LDL Cholesterol, Calc VLDL Cholesterol, Calc HDL Cholesterol Cholesterol/HDL Ratio 06/28/24 06/29/24 06/29/24 20:26 05:30 07:37 WBC 7.26 RBC 4.00 L Hgb 11.5 L Hct 35.6 L MCV 89.0 MCH 28.8 MCHC 32.3 RDW Std Deviation 43.8 RDW Coeff of Keke 13.3 Plt Count 163 MPV 10.9 Immature Gran % (Auto) 0.4 Neut % (Auto) 64.7 Lymph % (Auto) 26.0 [place] % (Auto) 7.2 Eos % (Auto) 1.4 Baso % (Auto) 0.3 Neut # (Auto) 4.70 Lymph # (Auto) 1.89 [place] # (Auto) 0.52 Eos # (Auto) 0.10 Baso # (Auto) 0.02 Immature Gran # (Auto) 0.03 Heparin Anti-Xa, Unfract 0.41 Sodium 138 Potassium 4.5 Chloride 107 Carbon Dioxide 26 Anion Gap 5 BUN 37 H Creatinine 1.61 H Est Cr Clr Drug Dosing 48.7 eGFR 45.72 BUN/Creatinine Ratio 23.0 H Glucose 124 H POC Glucose 141 H 131 H Estimat Average Glucose 163 Hemoglobin A1c 7.3 H Calcium 8.9 Magnesium 2.1 Total Bilirubin 0.3 AST 16 ALT < 3 L Alkaline Phosphatase 62 Troponin I High Sens Total Protein 6.6 Albumin 3.8 Globulin 2.8 Albumin/Globulin Ratio 1.4 Triglycerides 47 Cholesterol 105 LDL Cholesterol, Calc 53 VLDL Cholesterol, Calc 9 HDL Cholesterol 43 Cholesterol/HDL Ratio 2.4 06/29/24 11:38 WBC RBC Hgb Hct MCV MCH MCHC RDW Std Deviation RDW Coeff of Keke Plt Count MPV Immature Gran % (Auto) Neut % (Auto) Lymph % (Auto) [place] % (Auto) Eos % (Auto) Baso % (Auto) Neut # (Auto) Lymph # (Auto) [place] # (Auto) Eos # (Auto) Baso # (Auto) Immature Gran # (Auto) Heparin Anti-Xa, Unfract Sodium Potassium Chloride Carbon Dioxide Anion Gap BUN Creatinine Est Cr Clr Drug Dosing eGFR BUN/Creatinine Ratio Glucose POC Glucose 165 H Estimat Average Glucose Hemoglobin A1c Calcium Magnesium Total Bilirubin AST ALT Alkaline Phosphatase Troponin I High Sens Total Protein Albumin Globulin Albumin/Globulin Ratio Triglycerides Cholesterol LDL Cholesterol, Calc VLDL Cholesterol, Calc HDL Cholesterol Cholesterol/HDL Ratio Diagnostic Findings Echo report reviewed from 06/28/2024: LV systolic function reduced with EF 40- 45%. Global hypokinesis. Hypokinesis of the inferior and posterior friend from base to mid ventricle and otherwise mildly hypokinetic globally. Moderate left atrial dilation. Mildly reduced RV systolic function. Mild to moderate MR. Atrial flutter with rapid ventricular response. Labs reviewed and notable for mildly abnormal renal function (new), normal potassium, normal magnesium, nonelevated transaminase levels, normal TSH, excellent lipids, mild anemia. History and physical report reviewed. Chest x-ray 06/28/2024: Image personally reviewed. No infiltrate. Unremarkable. No acute findings per radiology. ECG personally reviewed: ECG 06/28/2024 at 9:25 AM: Atrial flutter with rapid ventricular response 143 bpm. ECG 06/28/2024 at 9:54 AM: Atrial flutter with rapid ventricular response 145 bpm. ECG 06/29/2024 at 6:23 AM: Atrial flutter with 4 1 AV conduction. 69 bpm. Telemetry personally reviewed: Atrial flutter with rapid ventricular response at times when 2-1 AV block and then abrupt improvement when 4-1 AV block with normal heart rate. Has had intermittent episodes of RVR and normal rates. Medications Administered Current Inpatient Medications Acetaminophen (Acetaminophen 325 Mg Tab) 650 mg PO Q4H PRN PRN Reason: Pain or Fever Stop: 07/28/24 12:45 Amiloride HCl (Amiloride Hcl 5 Mg Tab) 5 mg PO QAM [facility] Stop: 07/29/24 08:59 Last Admin: 06/29/24 08:05 Dose: 5 mg Atorvastatin Calcium (Atorvastatin 20 Mg Tab) 20 mg PO QPM [facility] Stop: 07/28/24 20:59 Last Admin: 06/28/24 21:10 Dose: 20 mg Carbidopa/Levodopa (Carbidopa/Levodopa 25/100mg Tab) 1 tab PO DAILY@0600,1000,1400,1800,2200 [facility] Stop: 07/28/24 16:29 Last Admin: 06/29/24 13:11 Dose: 1 tab Dextrose (Dextrose 50% 50 Ml Syringe) 25 - 50 ml IV UD PRN; Protocol PRN Reason: Hypoglycemia Protocol Stop: 07/28/24 12:59 Entacapone (Entacapone 200 Mg Tab) 200 mg PO DAILY@1000,2200 [facility] Stop: 07/28/24 21:59 Last Admin: 06/29/24 09:31 Dose: 200 mg Glucagon (Glucagon For Inj 1 Mg Vial) 1 mg SQ UD PRN; Protocol PRN Reason: Hypoglycemia Protocol Stop: 07/28/24 12:59 Glucose (Glucose 40% Gel 15 Gm Tube) 15 - 30 gm PO UD PRN; Protocol PRN Reason: Hypoglycemia Protocol Stop: 07/28/24 12:59 Glucose (Glucose 10 Tab/Tube) 4 - 8 tab PO UD PRN; Protocol PRN Reason: Hypoglycemia Protocol Stop: 07/28/24 12:59 Amiodarone HCl/Dextrose (Nexterone / D5w) 360 mg in 200 mls @ 16.667 mls/hr IV .Q12H [facility] Stop: 07/28/24 16:44 Last Admin: 06/29/24 05:29 Dose: 0.5 mg/min, 16.7 mls/hr Heparin Sodium/Dextrose (Heparin 95391 Unit/500 Ml D5w) 25,000 units in 500 mls @ 20 mls/hr IV .Q24H [facility]ZA; Protocol Stop: 07/28/24 12:59 Last Admin: 06/28/24 13:33 Dose: 1,000 units/hr, 20 mls/hr Insulin Aspart (Insulin Aspart Per Unit Charge) 0 units SC ACHS [facility] Stop: 07/28/24 16:29 Last Admin: 06/29/24 12:24 Dose: 2 units Insulin Glargine (Lantus Per Unit Charge) 9 units SQ BID [facility] Stop: 07/28/24 20:59 Last Admin: 06/29/24 08:38 Dose: 9 units Magnesium Oxide (Magnesium Oxide 400 Mg Tab) 400 mg PO TID [facility] Stop: 07/28/24 15:59 Last Admin: 06/29/24 13:11 Dose: 400 mg Metoprolol Tartrate (Metoprolol Tartrate 25 Mg Tab) 25 mg PO BID [facility] Stop: 07/29/24 20:59 Miscellaneous (Carbohydrates For Hypoglycemia ) 15 - 30 gm PO UD PRN PRN Reason: Hypoglycemia Protocol Stop: 07/28/24 12:59 Tamsulosin HCl (Tamsulosin Hcl 0.4 Mg Cap) 0.4 mg PO QAM [facility] Stop: 07/29/24 08:59 Last Admin: 06/29/24 08:04 Dose: 0.4 mg PG Care Time/CCT Total # of Minutes Spent Total Time Spent with Patient: Total time spent is greater than 50% in coordination of care (as documented) at patient's floor/unit and/or counseling patient: Coding Level of Care Code 06627 INT INP/OBS CARE 3/75MIN Diagnoses Atrial flutter I48.92 Cardiomyopathy I42.9 Hypertension I10 Mitral regurgitation I34.0 CKD (chronic kidney disease) N18.9 Anemia D64.9
[2024-06-30 06:03] LABS: Basophils # (auto) 0.02 K/uL (0.00-0.20); Basophils % (auto) 0.2 %; Eosinophils # (auto) 0.08 K/uL (0.00-0.50); Hematocrit (blood only) 36.6 % (42.0-52.0); Immature Granulocytes # (auto) 0.02 K/uL (0.01-0.20); Immature Granulocytes % (auto) 0.2 %; Lymphocytes # (auto) 1.45 K/uL (1.20-3.40); Lymphocytes % (auto) 17.9 %; Mean Corpuscular Hemoglobin 29.3 pg (25.0-34.0); Mean Corpuscular Hgb Conc 32.8 g/dL (32.0-36.0); Mean Corpuscular Volume 89.3 fL (80.0-100.0); Mean Platelet Volume 11.1 fL (9.4-12.4); Monocytes # (auto) 0.57 K/uL (0.11-0.59); Neutrophils # (auto) 5.98 K/uL (1.40-6.50); Neutrophils % (auto) 73.7 %; Platelet Count 183 K/uL (130-400); RDW Coefficient of Variation 13.2 % (11.5-14.5); RDW Standard Deviation 43.5 fL (36.4-46.3); White Blood Count 8.12 K/ul (4.8-10.8)
[2024-06-30 06:12] LABS: BUN Creatinine Ratio 21.3 (10-20); Calcium 9.4 mg/dl (8.6-10.3); Creatinine Clr Calc Pharmacy 47.9 ml/min; Magnesium 2.1 mg/dl (1.7-2.4); Potassium 4.7 mmol/L (3.5-5.1)
[2024-06-30 06:26] LABS: ANTI-Xa, UFH(UnfractionatedHep 0.42 IU/ml (0.3-0.7)
--- NOTE | 2024-06-30 08:15 | Discharge Summary ---
Discharge Summary Date of Service June 30, 2024 Principal Dx & Hospital Course #1 = Principal Diagnosis (1) Atrial fibrillation: 68-year-old male with past medical history of Parkinson's, HFrEF EF 40-45%, DM2, hypertension, mild chronic anemia who presented with new onset A-fib with RVR and he was started on heparin drip and amiodarone drip on admission. He subsequently converted to sinus rhythm and was discharged outpatient follow-up with likely outpatient ablation to be scheduled. To do as outpatient: Continue metoprolol succinate 50 mg daily Continue Eliquis twice daily for A-fib stroke prophylaxis Follow-up with cardiology, anticipate outpatient ablation Repeat BMP within 1 week by PCP to ensure normalization/stability of renal function New onset A-fib/a flutter with RVR With a flutter 2-1 RVR on admission. Overnight events has been intermittently between A-fib and a flutter ranging from rate 18741 w/ A-fib and intermittent 2:1-4:1 flutter. Subsequently converted to sinus Echo with EF 40-45%? Rate related. Last 45-50% in 2019. Stress echo normal at that time. Clinically without CHF, no hypoxia chest x-ray is clear Magnesium optimized to goal of 2.0 Amiodarone gtt. was discontinued on admission and patient was continued on metoprolol Heparinized on admission. Denies history of bleeding/ulcers. Some increased fall risk with underlying parkinsonism and spinal stenosis however currently does well and is a [id number] of 5. Ongoing anticoagulation is recommended and patient was converted to Eliquis for discharge Tolerated metoprolol tartrate twice daily 25 mg well, this was consolidated to succinate 50 mg at time of discharge Patient was ambulating independently and felt he had good strength at time of discharge ELIZABETH Baseline creatinine around 1.3-1.4, creatinine was elevated at 1.5 and up trended to 1.64. This was suspected be due to to prerenal/perfusion deficits in the setting of periodic hypotension with his A-fib Day of discharge was equivocal 1.61 versus 1.64, patient was given a fluid bolus and this was rechecked. Greatly improved and nearly back to normal at recheck. Recommend recheck in 1 week at followup PCP appt Patient was voiding normally, was not hypotensive, was sinus and feeling well. Parkinson's disease Continue entacapone, Sinemet Some upper extremity tremor on exam Does not tolerate Sinemet ER due to hallucinations, home dosing continued Hypomagnesemia Continue magnesium supplement, amiloride temporarily held Replete to maintain goal of 2.0 as needed DM2 [id number] Continue SSI Adequate glycemic control 06/29 Goal range [id number] Last A1c 7.3% Hyperlipidemia Continue statin Mild anemia Chronic, stable. 11.5 on 06/29. No clinical bleeding Spinal stenosis History of L5-S1 decompression, L2-L5 hardware removal, surgical intervention 03/23/[address] Rock Patient has pending follow-up with [facility] for possible thoracic/cervical interventions. Has declined stimulator in the past. No acute change in management of this however if he does proceed for further surgical intervention will need to hold/coordinate anticoagulation at that time DVT prophylaxis: Anticoagulated Disposition: PCU CODE STATUS: Full code Diet: Heart healthy/DM2 Admission HPI Per Admitting Provider This is a 68-year-old male who presented to cardiology's office today to undergo preoperative evaluation for back surgery. Echocardiogram performed in the office demonstrated new onset atrial fibrillation. Also showed a left ventricular ejection fraction approximate 40%. The patient was directed to the ER by cardiology. It is noted that the patient is completely asymptomatic. He denies any chest pain shortness of breath excetra Recommendations from cardiology was for amiodarone bolus and drip. If no cardioversion to admit and continue amiodarone drip. Patient has not responded to the IV amiodarone bolus. Therefore recontacted for admission for new onset atrial fibrillation. We have recommended a heparin drip as well. Laboratory studies are reassuring. He has some mild chronic anemia which appears stable. His electrolytes are satisfactory. Magnesium low normal at 1.8. Will give 2 g of magnesium sulfate given the new dysrhythmia. Discharge Exam General: A&Ox3. NAD. Cooperative. HEENT: Atraumatic, normocephalic. Vision and hearing grossly intact Pulm: CTAB A&P. -wheezes, -rales, -rhonchi. Symmetrical chest rise. No increased work of breathing. No respiratory distress. Cardiac: RRR, -mrg. Radial pulses intact and symmetrical. On re-evaluation irregular with rates 100-110. Normotensive. Abdominal: Nontender, nondistended, soft. BS present. Extremities: Strength and sensation intact in upper and lower extremities bilaterally. Slight bilateral upper extremity resting tremor with slight cogwheeling on exam. No edema. Discharge Plan Discharge Items Patient Disposition: Home - Self-Care Reason For Visit: A. FIB Discharge Diagnosis: New onset A-fib Activity: Resume your previous activity Non-emergency contact: Primary Care Provider and Superintendent Tests Call non-emergency contact if: you have any medication questions and your symptoms worsen Follow-up/Referrals: D[facility] CRNP [Primary Care Provider] - Leighton Meza MD [Physician] - Diet: Heart Healthy Addtl Attending Provider Instructions: You were seen in the hospital for atrial fibrillation/atrial flutter with a rap id heart rate. You were treated with amiodarone and metoprolol, you converted back to a normal sinus rhythm day of discharge. A-fib/aflutter can come and go and frequently recurs for patients. There is a risk of stroke due to intermittent A-fib. To prevent strokes you have been started on a blood thinner, Eliquis. Please take Eliquis 5 mg by mouth twice daily. This is a blood thinner which increases risk of bleeding. If you have any small cuts please apply firm direct pressure for at least 10 minutes without checking the wound. For any bleeding that does not stop, larger wounds, black or bloody bowel movements, or other bleeding please seek immediate medical attention. Started on metoprolol 50 mg succinate daily to help suppress A-fib and prevent your heart rate from going too quickly. This also can help control/lower blood pressure. If you notice any lightheadedness, dizziness or low blood pressure please stop taking this medication and call your PCP or flight steward for further recommendations Your kidney function was greatly improved and nearly back to baseline at time of discharge. Please have your PCP recheck your kidney levels in ~1 week at your followup appointment. If you develop any new or worsening symptoms including fever, chills, sweats, chest pain, chest pressure, difficulty breathing, uncontrolled nausea/vomiting, rash, wheezing, passing out or nearly passing out, bleeding, black/bloody bowel movements, or other new or concerning symptoms please call your primary care physician, or call 911 for re-evaluation in the emergency department if you are very concerned. Pending Studies at Discharge: No Stand-Alone Forms: My anydooR, Smoking Cessation Medications and DC Order Prescriptions: New Eliquis 5 mg Tablet 5 mg PO BID Qty: 60 0RF metoprolol tartrate 50 mg Tablet 50 mg PO QAM Qty: 30 0RF Continued atorvastatin 20 mg tablet 20 mg PO QPM Qty: 90 3RF magnesium oxide 400 mg (241.3 mg magnesium) tablet 400 mg PO TID Qty: 270 1RF sitagliptin phos-metformin 50-1,000 mg tablet 1 tab PO BID 90 Days Qty: 180 3RF multivitamin tablet 1 tab PO QAM alfuzosin 10 mg tablet extended release 24 hr 10 mg PO QAM Qty: 90 3RF entacapone 200 mg tablet 200 mg PO BID Qty: 60 2RF Rx Instructions: administer at the same time as l-dopa/carbidopa dose amiloride 5 mg tablet 5 mg PO QAM carbidopa-levodopa 25-100 mg tablet 1 tab PO 5XD Rx Instructions: 1 tab PO at 6 am, 10 am, 2 pm and 6 pm and 10 pm. Discontinued metoprolol tartrate 25 mg tablet 25 mg PO QAM Discharge Orders: Discharge Order (Routine); Ordered 06/30/24 Ordered By: Jose Macias/Other Patient Handouts: Managing Type 2 Diabetes Admission Data Admit Date/Time: 06/28/24 12:48 Attending Provider: Jose Ramírez Admit Provider: Yared Arriaga Primary Care Provider: [facility] Other Providers: Yared Arriaga; Leighton Meza Hospital Stay Data Consultations 06/28/24 12:32 ED Decision to Admit Stat 06/28/24 12:46 Consult Cardiology Routine Procedures Performed Operation Date: 06/30/24 07:30 <No data on this case meets the specified criteria> Discharge Instructions Given to Patient (Per Discharging Provider) You were seen in the hospital for atrial fibrillation/atrial flutter with a rapid heart rate. You were treated with amiodarone and metoprolol, you converted back to a normal sinus rhythm day of discharge. A-fib/aflutter can come and go and frequently recurs for patients. There is a risk of stroke due to intermittent A-fib. To prevent strokes you have been started on a blood thinner, Eliquis. Please take Eliquis 5 mg by mouth twice daily. This is a blood thinner which increases risk of bleeding. If you have any small cuts please apply firm direct pressure for at least 10 minutes without checking the wound. For any bleeding that does not stop, larger wounds, black or bloody bowel movements, or other bleeding please seek immediate medical attention. Started on metoprolol 50 mg succinate daily to help suppress A-fib and prevent your heart rate from going too quickly. This also can help control/lower blood pressure. If you notice any lightheadedness, dizziness or low blood pressure please stop taking this medication and call your PCP or flight steward for further recommendations Your kidney function was greatly improved and nearly back to baseline at time of discharge. Please have your PCP recheck your kidney levels in ~1 week at your followup appointment. If you develop any new or worsening symptoms including fever, chills, sweats, chest pain, chest pressure, difficulty breathing, uncontrolled nausea/vomiting, rash, wheezing, passing out or nearly passing out, bleeding, black/bloody bowel movements, or other new or concerning symptoms please call your primary care physician, or call 911 for re-evaluation in the emergency department if you are very concerned. Total Time Total Time Spent Total Time Spent (In Minutes): Time spend day of discharge 40 minutes including direct patient care, documentation, review of labs and images, and coordination of care. Coding Level of Care Code 99278 INP/OBS DISCH >30 MIN Diagnoses Atrial fibrillation I48.91
[2024-06-30] MEDS: LACTATED RINGER'S 500 ML IV ONE (08:42)
[2024-06-30] MEDS: METOPROLOL TARTRATE 50 MG TAB PO SCH (08:42)
[2024-06-30] MEDS: APIXABAN 5 MG TABLET PO SCH (08:42)
--- NOTE | 2024-06-30 08:48 | Cardiology Progress Note ---
Date of Service June 30, 2024 Assessment & Plan (1) Atrial flutter: (2) Cardiomyopathy: (3) Hypertension: (4) Mitral regurgitation: (5) CKD (chronic kidney disease): (6) Anemia: Plan ASSESSMENT/PLAN: 1. Atrial flutter: He converted to a sinus rhythm yesterday evening. Asymptomatic at presentation and no change subsequent to cardioversion. Heart rate appears adequate on his current medical regimen which includes metoprolol. We discussed options moving forward. He seems in favor of catheter based therapy for a cure. We will arrange this in the outpatient setting. He can be discharged on systemic anticoagulation, apixaban started this morning. 2. Cardiomyopathy: Likely tachycardia induced. No current symptoms of coronary insufficiency or angina. Well compensated. He was seem reasonable to discharge him on metoprolol succinate as planned. 3. Hypertension: Elevated at times. Started metoprolol succinate at discharge. 4. Mitral regurgitation: Nonsevere. Can be monitored in the outpatient setting. 5. CKD: Acute renal insufficiency. Some hydration today and re-evaluation. 6. Anemia: Monitor for bleeding. Has had hemoglobins in the upper 7 and 8 range in March 2019, which appears to correlate with back surgery. 7. Disposition: I think he had been stable for discharge from a cardiac standpoint. As noted, transition to metoprolol succinate and continuation of anticoagulation would be reasonable at discharge. I will arrange for an ablation in the outpatient setting. The patient was instructed to monitor his heart rates at home with his blood pressure cuff. For elevated heart rates he was instructed to contact our office. Admission and Anticipated Discharge Date Admission Date: June 28, 2024 Subjective This morning patient was feeling well. He reported being ambulatory around his room without dizziness, breathing trouble or sense of palpitation. Review of Systems Review of Systems: Per HPI Physical Exam Physical Exam: The patient is alert and oriented. Mood and affect appeared normal. He answered all questions appropriately. HEENT: Pupils are equal and reactive to light and accommodation. Extraocular movements are intact. The sclerae are anicteric. Neuro: Cranial nerves intact Lungs: Normal respiratory effort Cardiac: Regular rhythm. Normal rate Pulses: The patient has palpable radial pulses bilaterally that are equal in intensity Extremities: There was no evidence of hypoperfusion. There is no cyanosis or clubbing. There is no edema. Skin: I did not appreciate any rashes on examination today. Results & Data Vital Signs (Past 12 Hours) Vital Signs Temp Pulse Resp BP Pulse Ox O2 Del Method 06/30/24 07:46 Room Air 06/30/24 07:25 36.6 C 88 18 152/81 H 96 Room Air 06/30/24 02:53 36.6 C 82 17 137/88 98 Room Air 06/29/24 22:52 36.9 C 96 H 19 127/78 94 Room Air Laboratory Results Abnormal Lab Results 06/29/24 06/29/24 06/29/24 05:30 11:38 16:09 WBC RBC Hgb Hct MCV MCH MCHC RDW Std Deviation RDW Coeff of Keke Plt Count MPV Immature Gran % (Auto) Neut % (Auto) Lymph % (Auto) Anderson % (Auto) Eos % (Auto) Baso % (Auto) Neut # (Auto) Lymph # (Auto) Anderson # (Auto) Eos # (Auto) Baso # (Auto) Immature Gran # (Auto) Heparin Anti-Xa, Unfract Sodium Potassium Chloride Carbon Dioxide Anion Gap BUN Creatinine Est Cr Clr Drug Dosing eGFR BUN/Creatinine Ratio Glucose POC Glucose 165 H 93 Estimat Average Glucose 163 Hemoglobin A1c 7.3 H Calcium Magnesium 06/29/24 06/30/24 06/30/24 20:33 05:28 05:42 WBC 8.12 RBC 4.10 L Hgb 12.0 L Hct 36.6 L MCV 89.3 MCH 29.3 MCHC 32.8 RDW Std Deviation 43.5 RDW Coeff of Kkee 13.2 Plt Count 183 MPV 11.1 Immature Gran % (Auto) 0.2 Neut % (Auto) 73.7 Lymph % (Auto) 17.9 Anderson % (Auto) 7.0 Eos % (Auto) 1.0 Baso % (Auto) 0.2 Neut # (Auto) 5.98 Lymph # (Auto) 1.45 Anderson # (Auto) 0.57 Eos # (Auto) 0.08 Baso # (Auto) 0.02 Immature Gran # (Auto) 0.02 Heparin Anti-Xa, Unfract 0.42 Sodium 136 Potassium 4.7 Chloride 104 Carbon Dioxide 27 Anion Gap 5 BUN 35 H Creatinine 1.64 H Est Cr Clr Drug Dosing 47.9 eGFR 44.72 BUN/Creatinine Ratio 21.3 H Glucose 92 POC Glucose 97 Estimat Average Glucose Hemoglobin A1c Calcium 9.4 Magnesium 2.1 PG Care Time/CCT Total # of Minutes Spent Total Time Spent with Patient: Total time spent is greater than 50% in coordination of care (as documented) at patient's floor/unit and/or counseling patient: Coding Level of Care Code 92535 SUB INP/OBS CARE 2/35MIN Diagnoses Atrial flutter I48.92 Cardiomyopathy I42.9 Hypertension I10 Mitral regurgitation I34.0 CKD (chronic kidney disease) N18.9 Anemia D64.9
[2024-06-30 11:30] VITALS: BP 146/91; PULSE 77; RESP 16; TEMP 97.7; O2SAT 100
[2024-06-30 12:38] LABS: BUN Creatinine Ratio 21.5 (10-20); Calcium 9.3 mg/dl (8.6-10.3); Potassium 4.4 mmol/L (3.5-5.1)
--- NOTE | 2024-07-01 22:57 | Electrocardiogram Report ---
Test Reason : Blood Pressure : */* mmHG Vent. Rate : 69 BPM Atrial Rate : 276 BPM P-R Int : * ms QRS Dur : 98 ms QT Int : 420 ms P-R-T Axes : 259 -24 1 degrees QTcB Int : 450 ms Atrial flutter with 4:1 A-V conduction Abnormal ECG When compared with ECG of 28-Jun-2024 18:04, ST no longer elevated in Inferior leads Confirmed by Franki Guzman ([id number]) on 07/01/2024 10:56:42 PM Referred By: REFERRED SELF Confirmed By: Franki Guzman
== END 2024-06-30 15:16 | disposition home or self-care (01) ==
LOC: ED 09:44 → SUATTDRO 12:48 → 2S 12:48 → INTOOBSV 12:48 → 2S 14:56

== ENCOUNTER 2024-08-10 10:49 | Observation (INO) ==
[2024-08-10] MEDS: MAGNESIUM SULFATE / D5W 1 GM/100 ML BAG IV SCH (11:21)
[2024-08-10] MEDS: METOPROLOL TARTRATE 1 MG/ML VIAL IV STA (11:21)
[2024-08-10 11:28] LABS: iSTAT Creatinine 1.7 mg/dl (0.6-1.3); iSTAT Hemoglobin 13.6 g/dl (14.0-18.0); iSTAT Ionized Calcium 1.24 mmol/l (1.12-1.32); iSTAT Potassium 5.8 mmol/L (3.3-5.0)
[2024-08-10 11:29] LABS: Basophils # (auto) 0.01 K/uL (0.00-0.20); Basophils % (auto) 0.1 %; Eosinophils # (auto) 0.05 K/uL (0.00-0.50); Eosinophils % (auto) 0.6 %; Hematocrit (blood only) 41.3 % (42.0-52.0); Hemoglobin 13.2 g/dl (14.0-18.0); Immature Granulocytes # (auto) 0.02 K/uL (0.01-0.20); Immature Granulocytes % (auto) 0.2 %; Lymphocytes # (auto) 1.35 K/uL (1.20-3.40); Lymphocytes % (auto) 15.4 %; Mean Corpuscular Hemoglobin 28.5 pg (25.0-34.0); Mean Corpuscular Volume 89.2 fL (80.0-100.0); Mean Platelet Volume 10.8 fL (9.4-12.4); Monocytes # (auto) 0.55 K/uL (0.11-0.59); Monocytes % (auto) 6.3 %; Neutrophils # (auto) 6.81 K/uL (1.40-6.50); Neutrophils % (auto) 77.4 %; Platelet Count 167 K/uL (130-400); RDW Coefficient of Variation 13.5 % (11.5-14.5); RDW Standard Deviation 43.9 fL (36.4-46.3); Red Blood Count 4.63 M/uL (4.70-6.10); White Blood Count 8.79 K/ul (4.8-10.8)
--- NOTE | 2024-08-10 11:35 | XRay Report ---
XR chest 1V portable CLINICAL HISTORY: Dysrhythmia COMPARISON STUDY: 06/28/2024 FINDINGS: Single view chest is unchanged and demonstrate no acute pulmonary process. There is mild ca rdiomegaly with left ventricular prominence. There is no pleural effusion or pneumothorax. IMPRESSION: Stable exam demonstrating mild cardiomegaly and no acute cardiopulmonary process. ACT 112: Negative or not required by law. Electronically signed by: Nikki Victor M.D. 08/10/2024 11:33 AM
[2024-08-10 11:44] LABS: Albumin Globulin Ratio 1.5 (0.9-2); BUN Creatinine Ratio 20.9 (10-20); Bilirubin,Total 0.6 mg/dl (0.2-1.0); Calcium 9.9 mg/dl (8.6-10.3); Creatinine Clr Calc Pharmacy 50.3 ml/min; Globulin 2.8 gm/dl (2.5-4.0); Magnesium 1.5 mg/dl (1.7-2.4); Total Protein 7.1 gm/dl (6.0-8.3)
--- NOTE | 2024-08-10 11:44 | Emergency Department Note ---
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 Patient evidently since Thursday to experiencing elevated heart rates in the 130s to 140s per patient and . He does not feel palpitations. Denies chest pain. Denies shortness of breath. Was a bit lightheaded earlier. Blood pressure has been in the 90s at times he states. Did notice when taking his blood pressures. Otherwise been taking his medications. His working to follow-up in the outpatient setting for possible ablation. No trauma or falls. Again no actual syncope. Denies swelling. Denies recent illness. PAST MEDICAL HISTORY: As noted above MEDICATIONS: Reviewed no medication states compliance clinic taken this morning SOCIAL HISTORY: PHYSICAL EXAM: GENERAL: alert and oriented in no acute distress on stretcher Head: normocephalic and atraumatic EYES: No injection, discharge or icterus. NECK: Trachea midline. ENT: Mucous membranes pink and moist. LUNGS: Airway patent. No retractions. Breath sounds clear with good air entry bilaterally. HEART: Regular tachycardic rate and rhythm. No chest wall tenderness ABDOMEN: Soft and non-tender, without guarding or rebound. SKIN: Acyanotic, warm, dry, without rashes EXTREMITIES: Without tenderness or deformity trace welling of the lower extremities. NEUROLOGICAL: No focal deficits below bit of resting tremor in the right upper extremity. No aphasia. No facial droop or slurred speech. Normal strength and tone in the extremities. Sensation to gross touch normal. Ambulatory. EK beats minute atrial flutter 2:[address] segment elevation or depression obviously noted. Baseline effect. QTc 399. CONTINUOUS CARDIAC MONITORING: was ordered and showed a heart rate of 130s to 150s bpm in atrial flutter Patient's laboratory studies and imaging reviewed. Differential includes Premature contractions, electrolyte abnormality, cardiac dysrhythmia, thyroid dysfunction, pulmonary embolism, infection, gastrointestinal, as well as other pathologies. IMPRESSION/MEDICAL DECISION MAKING: Immediately brought to room A1 is hypotensive in triage. Did walk in from car. Patient blood pressure repeated in room A1 normotensive. He is in rapid atrial flutter. Not having significant pain or unstable at this time. Given the magnesium and metoprolol to see if this would help with rate control. Is anticoagulated but did have breakfast this morning by his report approximately 4 hours ago. Basic blood work sent including electrolytes. Chest x-ray without signs of fluid overload does not appear clinically fluid overloaded. Not hypoxic here. Blood work here without severe anemia. Some hyperkalemia with his chronic kidney disease is noted. Given insulin, dextrose with small mount of fluid, bicarb, and some calcium. No troponin elevation likely. Discussed with cardiology. They do recommend further medications and agree likely he will just need cardioverted. At this time however with the hyperkalemia and his rapid A- flutter we will bring into the hospital and hospitalist team was consulted. He will continue his anticoagulation. DIAGNOSIS: Rapid atrial flutter, hyperkalemia, near syncope DISPOSITION: Hospitalist will evaluate Patient was agreeable with this plan. Past Med/Surg History Problem List (Updated 08/10/24 @ 13:06 by Carroll Mendoza PA-C) Hyperkalemia Hypomagnesemia (Acute) Light-headed feeling (Acute) Acute hyperkalemia (Acute) Atrial flutter with rapid ventricular response (Acute) Mitral regurgitation Cardiomyopathy Atrial flutter CKD (chronic kidney disease) (Acute) Atrial flutter by electrocardiography (Acute) Spinal stenosis, lumbar region with neurogenic claudication Cervical pain (neck) Osteopenia Lumbar facet joint syndrome Sacroiliitis Hypomagnesemia Kidney stones, calcium oxalate Vitamin D deficiency Tremor Parkinson disease Stenosis of cavernous portion of right internal carotid artery History of colon polyps Anemia Neurogenic claudication due to lumbar spinal stenosis Status post lumbar surgery L5-S1 Decompression and Fusion, L2-L5 Hardware Removal, Spinal Cord Monitoring, Application of Bone Morphogenetic Protein and Allograft - [place], DO Bilateral cataracts Left ventricular hypertrophy Echocardiogram 12/24/2018-LVEF 45-50 percent, severe inferolateral hypokinesis. Mid base to mid inferior hypokinesis. Echocardiogram 01/25/2019-mild concentric left ventricular hypertrophy with normal systolic function. Quijano treadmill score 6; met level achieved was 7 Hx of pyloric stenosis s/p surgical repair Type 2 diabetes mellitus NIDDM Sleep apnea inconclusive sleep study, no device prescribed Lumbar radiculopathy Dyslipidemia Carotid artery plaque Mild nonobstructive plaque noted on 2015 carotid doppler Chronic osteoarthritis Enlarged prostate with lower urinary tract symptoms (LUTS) Hypertension Medical History Hearing loss Obesity Surgical History History of lithotripsy History of non-cataract eye surgery History of cataract surgery History of back surgery Hx of colonoscopy History of partial knee replacement History of lumbar fusion History of gastric surgery Family History Father Coronary heart disease Myocardial infarction Diabetes Heart disease Sister Family history of gallbladder disease Diabetes Other Family history of kidney stones Denies family history of Ovarian cancer Prostate cancer Breast cancer Lung cancer Colorectal cancer Social History Smoking Status: Never smoker Second Hand Exposure: Yes (WHEN HE WAS WORKING); Do You Dip or Chew Tobacco: No; Hx Alcohol Use: No Hx Substance Use: No Preferred Language: Uzbek Communication Ability: Effective Visual Impairment: No Limitations Hearing Ability: Normal 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 Required: Yes Beliefs That Will Affect Care: None marital status: Current Living Situation: Spouse Current Living Situation Comment: Home with spouse 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 How many Children do You have: 0 Feels Safe at Home: Yes Childhood Exposure to Second-Hand Smoke: No Diet: regular Diet Comment: regular caffeine: Yes during the past year weight has: remained stable Dental Care, Regularly: Yes Physical Activity Frequency: Other Seatbelt Use: sometimes Sunscreen Use: No Assistive Devices: None Allergies Allergies Allergy/AdvReac Type Severity Reaction Status Date / Time No Known Allergies Allergy Verified 08/10/24 12:17 Home Meds Home Medications Medication Instructions Recorded Confirmed multivitamin 1 tab PO QAM 01/04/19 08/10/24 amiloride 5 mg tablet 5 mg PO QAM 06/28/24 08/10/24 carbidopa 25 mg-levodopa 100 mg 1 tab PO UD 06/28/24 08/10/24 tablet alfuzosin 10 mg tablet,extended 10 mg PO QAM 07/06/24 08/10/24 release 24 hr Previous Rx's Medication Instructions Recorded atorvastatin 20 mg tablet 20 mg PO QPM #90 tabs 09/09/23 magnesium oxide 400 mg (241.3 mg 400 mg PO TID #270 tabs 10/16/23 magnesium) tablet sitagliptin phosphate 50 1 tab PO BID 90 days #180 tabs 01/07/24 mg-metformin 1,000 mg tablet metoprolol succinate 50 mg 50 mg PO DAILY #30 tabs 06/30/24 tablet,extended release 24 hr apixaban 5 mg tablet (Eliquis) 5 mg PO BID #60 tabs 08/04/24 Results & Data (ED) Vital Signs Vital Signs - 24 hr 08/10/24 10:58 08/10/24 11:09 08/10/24 11:14 Temperature 36.6 C Temperature Source Temporal Artery Scan Pulse Rate 144 H 140 H Pulse Rate [Apical] 141 H Respiratory Rate 20 20 Respiratory Effort / Characteristics Non-Labored Spontaneous Non-Labored Spontaneous Respiratory Depth Normal Normal Respiratory Pattern Regular Regular Blood Pressure 62/45 L Blood Pressure [Left Arm] 103/82 Blood Pressure Mean 50 Blood Pressure Mean [Left Arm] 89 Blood Pressure Position [Left Arm] Semi-fowlers Pulse Oximetry 99 98 Oxygen Delivery Method Room Air Room Air Sepsis Recent Fever Within 48 Hours No Sepsis New/Unexplained Change in Mental Status No Sepsis Action Taken by Nursing No Action Required 08/10/24 11:21 08/10/24 11:30 08/10/24 11:40 Temperature Temperature Source Pulse Rate 138 H Pulse Rate [Apical] 137 H 135 H Respiratory Rate 20 20 Respiratory Effort / Characteristics Non-Labored Spontaneous Non-Labored Spontaneous Respiratory Depth Normal Normal Respiratory Pattern Regular Blood Pressure 112/86 Blood Pressure [Left Arm] 111/84 93/72 L Blood Pressure Mean Blood Pressure Mean [Left Arm] 93 79 Blood Pressure Position [Left Arm] Pulse Oximetry 98 96 Oxygen Delivery Method Room Air Room Air Sepsis Recent Fever Within 48 Hours Sepsis New/Unexplained Change in Mental Status Sepsis Action Taken by Nursing 08/10/24 12:00 08/10/24 12:17 08/10/24 13:12 Temperature Temperature Source Pulse Rate Pulse Rate [Apical] 132 H 142 H 143 H Respiratory Rate 18 18 16 Respiratory Effort / Characteristics Non-Labored Spontaneous Non-Labored Spontaneous Non-Labored Respiratory Depth Normal Normal Normal Respiratory Pattern Regular Blood Pressure Blood Pressure [Left Arm] 107/83 97/75 L 85/66 L Blood Pressure Mean Blood Pressure Mean [Left Arm] 91 82 72 Blood Pressure Position [Left Arm] Pulse Oximetry 100 99 99 Oxygen Delivery Method Room Air Room Air Room Air Sepsis Recent Fever Within 48 Hours Sepsis New/Unexplained Change in Mental Status Sepsis Action Taken by Nursing Laboratory Data 08/10/24 11:10 08/10/24 11:10 Lab Results 08/10/24 08/10/24 08/10/24 Range/Units 11:10 11:14 11:30 WBC 8.79 (4.8-10.8) K/ul RBC 4.63 L (4.70-6.10) M/uL Hgb 13.2 L (14.0-18.0) g/dl POC Hgb 13.6 L (14.0-18.0) g/dl Hct 41.3 L (42.0-52.0) % POC Hct 40 L (42-52) % MCV 89.2 (80.0-100.0) fL MCH 28.5 (25.0-34.0) pg MCHC 32.0 (32.0-36.0) g/dL RDW Std Deviation 43.9 (36.4-46.3) fL RDW Coeff of Keke 13.5 (11.5-14.5) % Plt Count 167 (130-400) K/uL MPV 10.8 (9.4-12.4) fL Immature Gran % (Auto) 0.2 % Neut % (Auto) 77.4 % Lymph % (Auto) 15.4 % [place] % (Auto) 6.3 % Eos % (Auto) 0.6 % Baso % (Auto) 0.1 % Neut # (Auto) 6.81 H (1.40-6.50) K/uL Lymph # (Auto) 1.35 (1.20-3.40) K/uL [place] # (Auto) 0.55 (0.11-0.59) K/uL Eos # (Auto) 0.05 (0.00-0.50) K/uL Baso # (Auto) 0.01 (0.00-0.20) K/uL Immature Gran # (Auto) 0.02 (0.01-0.20) K/uL PT 12.1 H (9.0-12.0) Seconds INR 1.1 (0.9-1.1) APTT 26 (21-31) Seconds PTT Ratio 1.0 POC Sodium 139 (135-144) mmol/L Sodium 137 (136-145) mmol/L POC Potassium 5.8 H (3.3-5.0) mmol/L Potassium 6.0 H (3.5-5.1) mmol/L POC Chloride 106 (101-112) mmol/L Chloride 105 (98-107) mmol/L Carbon Dioxide 26 (21-32) mmol/L POC Total CO2 23 L (24-31) mmol/L Anion Gap 6 (3-11) POC Anion Gap 17.0 (16-25) mmol/L POC BUN 34 H (7-18) mg/dl BUN 33 H (6-23) mg/dl Creatinine 1.58 H (0.6-1.4) mg/dl POC Creatinine 1.7 H (0.6-1.3) mg/dl Est Cr Clr Drug Dosing 50.3 ml/min eGFR 46.76 BUN/Creatinine Ratio 20.9 H (10-20) Glucose 144 H (70-99(Fasting)) mg/dl POC Glucose (other) 142 H (70-99) mg/dl Calcium 9.9 (8.6-10.3) mg/dl POC Ioniz Calcium Shanique 1.24 (1.12-1.32) mmol/l Magnesium 1.5 L (1.7-2.4) mg/dl Total Bilirubin 0.6 (0.2-1.0) mg/dl AST 23 (13-39) U/L ALT 4 L (7-52) U/L Alkaline Phosphatase 69 (34-104) U/L Troponin I High Sens 9.9 (0-20) pg/ml Total Protein 7.1 (6.0-8.3) gm/dl Albumin 4.3 (3.4-5.0) gm/dl Globulin 2.8 (2.5-4.0) gm/dl Albumin/Globulin Ratio 1.5 (0.9-2) TSH 4.627 H (0.300-4.500) uIu/ml Free T4 0.80 (0.61-1.60) ng/dl Urine Color Urine Appearance (Clear) Urine pH (4.5-7.5) Ur Specific Comins (1.000-1.030) Urine Protein (Negative) Urine Glucose (UA) (Negative) Urine Ketones (Negative) Urine Blood (Negative) Urine Nitrite (Negative) Urine Bilirubin (Negative) Urine Urobilinogen (Negative) Ur Leukocyte Esterase (Negative) SARS-CoV-2, RNA, NAAT NEGATIVE (NEGATIVE) 08/10/24 Range/Units 13:01 WBC (4.8-10.8) K/ul RBC (4.70-6.10) M/uL Hgb (14.0-18.0) g/dl POC Hgb (14.0-18.0) g/dl Hct (42.0-52.0) % POC Hct (42-52) % MCV (80.0-100.0) fL MCH (25.0-34.0) pg MCHC (32.0-36.0) g/dL RDW Std Deviation (36.4-46.3) fL RDW Coeff of Keke (11.5-14.5) % Plt Count (130-400) K/uL MPV (9.4-12.4) fL Immature Gran % (Auto) % Neut % (Auto) % Lymph % (Auto) % [place] % (Auto) % Eos % (Auto) % Baso % (Auto) % Neut # (Auto) (1.40-6.50) K/uL Lymph # (Auto) (1.20-3.40) K/uL [place] # (Auto) (0.11-0.59) K/uL Eos # (Auto) (0.00-0.50) K/uL Baso # (Auto) (0.00-0.20) K/uL Immature Gran # (Auto) (0.01-0.20) K/uL PT (9.0-12.0) Seconds INR (0.9-1.1) APTT (21-31) Seconds PTT Ratio POC Sodium (135-144) mmol/L Sodium (136-145) mmol/L POC Potassium (3.3-5.0) mmol/L Potassium (3.5-5.1) mmol/L POC Chloride (101-112) mmol/L Chloride (98-107) mmol/L Carbon Dioxide (21-32) mmol/L POC Total CO2 (24-31) mmol/L Anion Gap (3-11) POC Anion Gap (16-25) mmol/L POC BUN (7-18) mg/dl BUN (6-23) mg/dl Creatinine (0.6-1.4) mg/dl POC Creatinine (0.6-1.3) mg/dl Est Cr Clr Drug Dosing ml/min eGFR BUN/Creatinine Ratio (10-20) Glucose (70-99(Fasting)) mg/dl POC Glucose (other) (70-99) mg/dl Calcium (8.6-10.3) mg/dl POC Ioniz Calcium Shanique (1.12-1.32) mmol/l Magnesium (1.7-2.4) mg/dl Total Bilirubin (0.2-1.0) mg/dl AST (13-39) U/L ALT (7-52) U/L Alkaline Phosphatase (34-104) U/L Troponin I High Sens (0-20) pg/ml Total Protein (6.0-8.3) gm/dl Albumin (3.4-5.0) gm/dl Globulin (2.5-4.0) gm/dl Albumin/Globulin Ratio (0.9-2) TSH (0.300-4.500) uIu/ml Free T4 (0.61-1.60) ng/dl Urine Color Yellow Urine Appearance Clear (Clear) Urine pH >= 9.0 H (4.5-7.5) Ur Specific [place] 1.018 (1.000-1.030) Urine Protein Negative (Negative) Urine Glucose (UA) Negative (Negative) Urine Ketones Negative (Negative) Urine Blood Negative (Negative) Urine Nitrite Negative (Negative) Urine Bilirubin Negative (Negative) Urine Urobilinogen Negative (Negative) Ur Leukocyte Esterase Negative (Negative) SARS-CoV-2, RNA, NAAT (NEGATIVE) Administered Medications Discontinued Medications Dextrose (Dextrose 10% 250 Ml Bag) 250 ml IV ONCE ONE Stop: 08/10/24 11:50 Last Admin: 08/10/24 12:08 Dose: 250 ml Documented By: NA Magnesium Sulfate/Dextrose (Magnesium Sulfate / D5w) 1 gm in 100 mls @ 400 mls/hr IV Q15M LIZA Stop: 08/10/24 11:30 Last Infusion: 08/10/24 11:40 Dose: Infused Documented By: Admin: 08/10/24 11:21 Dose: 400 mls/hr Documented By: KIARA Calcium Gluconate () 1,000 mg in 60 mls @ 240 mls/hr IV Q15M LIZA Stop: 08/10/24 12:29 Last Admin: 08/10/24 12:58 Dose: 240 mls/hr Documented By: Infusion: 08/10/24 12:40 Dose: Infused Documented By: Admin: 08/10/24 12:08 Dose: 240 mls/hr Documented By: KIARA Sodium Chloride (Nss) 250 mls @ 999 mls/hr IV .Q16M ONE Stop: 08/10/24 13:27 Last Admin: 08/10/24 13:16 Dose: 999 mls/hr Documented By: EDWARD Insulin Human Regular (Novolin-R Insulin Per Unit Charge) 10 units IV NOW STA Stop: 08/10/24 11:50 Last Admin: 08/10/24 12:06 Dose: 10 units Documented By: KIARA Co-signed By: KURT Metoprolol Tartrate (Metoprolol Tartrate 1 Mg/Ml Vial) 5 mg IV NOW STA Stop: 08/10/24 11:17 Last Admin: 08/10/24 11:21 Dose: 5 mg Documented By: KIARA Sodium Bicarbonate (Sodium Bicarb 8.4% Inj 50 Meq/50 Ml Syr) 50 meq IV NOW STA Stop: 08/10/24 11:50 Last Admin: 08/10/24 12:08 Dose: 50 meq Documented By: KIARA Imaging Data Radiologist's Impression: Chest X-Ray 08/10/24 11:12 XR chest 1V portable CLINICAL HISTORY: Dysrhythmia COMPARISON STUDY: 06/28/2024 FINDINGS: Single view chest is unchanged and demonstrate no acute pulmonary process. There is mild cardiomegaly with left ventricular prominence. There is no pleural effusion or pneumothorax. IMPRESSION: Stable exam demonstrating mild cardiomegaly and no acute cardiopulmonary process. ACT 112: Negative or not required by law. Electronically signed by: Nikki Victor M.D. 08/10/2024 11:33 AM Discharge Plan Visit Data Chief Complaint: Referred by Doctor Stated Complaint: LOW B/P & HIGH PULSE REF BY DR MCCORMICK ED Provider: Austyn Remy Discharge Problem: Atrial flutter with rapid ventricular response, Acute hyperkalemia, Light- headed feeling, Hypomagnesemia Patient Disposition: Being Evaluated by Hospitalist Discharge Instructions Interventions: ED Discharge Assessment Last Done: 08/10/24 13:11 Forms Stand Alone Forms: My [facility] [employer] Prescriptions Prescriptions: No Action atorvastatin 20 mg tablet 20 mg PO QPM Qty: 90 3RF magnesium oxide 400 mg (241.3 mg magnesium) tablet 400 mg PO TID Qty: 270 1RF Rx Instructions: 08/10- otc unable to verify sitagliptin phos-metformin 50-1,000 mg tablet 1 tab PO BID 90 Days Qty: 180 3RF Eliquis 5 mg tablet 5 mg PO BID Qty: 60 5RF multivitamin tablet 1 tab PO QAM Rx Instructions: 08/10- otc unable to verify alfuzosin 10 mg tablet extended release 24 hr 10 mg PO QAM amiloride 5 mg tablet 5 mg PO QAM carbidopa-levodopa 25-100 mg tablet 1 tab PO UD Rx Instructions: 1 tab po 5xd. 1 tab PO at 6 am, 10 am, 2 pm and 6 pm and 10 pm. Last filled 07/01 30 day supply metoprolol succinate 50 mg tablet extended release 24 hr 50 mg PO DAILY Qty: 30 1RF Referrals Referrals: Dk [place] CRNP [Primary Care Provider] -
[2024-08-10 11:52] LABS: Troponin I High Sensitivity 9.9 pg/ml (0-20)
[2024-08-10 11:58] LABS: INR 1.1 (0.9-1.1); Partial Thromboplastin Time 26 Seconds (21-31); Prothrombin Time 12.1 Seconds (9.0-12.0)
[2024-08-10 12:02] LABS: Thyroid Stimulating Hormone 4.627 uIu/ml (0.300-4.500)
[2024-08-10] MEDS: NovoLIN-R INSULIN PER UNIT CHARGE IV STA (12:06)
[2024-08-10] MEDS: DEXTROSE 10% 250 ML BAG IV ONE (12:08)
[2024-08-10] MEDS: SODIUM BICARB 8.4% INJ 50 MEQ/50 ML SYR IV STA (12:08)
[2024-08-10] MEDS: CALCIUM GLUCONATE 1,000 MG/60 ML BAG IV SCH (12:08)
--- NOTE | 2024-08-10 12:09 | History & Physical Report ---
Date of Service August 10, 2024 Assessment & Plan (1) Atrial flutter with rapid ventricular response: (2) Shock: (3) Hyperkalemia: (4) Hypomagnesemia: (5) Cardiomyopathy: (6) CKD (chronic kidney disease): (7) Parkinson disease: (8) Type 2 diabetes mellitus: (9) Dyslipidemia: Plan This patient is a 68-year-old male with PMH of atrial flutter who presented on 08/10 for sustained elevated HR and low blood pressure beginning on Monday 08/07. Found to be in atrial flutter with RVR on arrival. #Atrial flutter with RVR/near syncopal episode/hypotension Initially, the patient's BP was 62/45 on arrival (when patient was walking), but this improved to 103/62 without intervention while laying in bed in the ED Activity: Bedrest with BSC No HR response to Lopressor mg IV given in the ED Follows with Dr. Meza Last echocardiogram on 06/28/2024 revealed LVEF at 40 to 45% with mild global hypokinesis of the left ventricle Would avoid diltiazem at this time Also, not a good digoxin candidate Note: patient did convert on his own during last admission in July 2024 Cardiology consult appreciated Patient ate breakfast the morning of 08/10 N.p.o. at midnight for possible cardioversion on 08/11 (assuming pt remains hemodynamically stable) Amiodarone 150 mg IV bolus + drip started in the ED; QTc 399 Continue metoprolol succinate 50 mg p.o. QAM assuming BP remains stable Continue telemetry monitoring #Hyperkalemia K 6.0 on arrival EKG on arrival with pointed T waves Calcium gluconate 1000 mg IV x 2 Regular insulin 10 units IV + dextrose Suspect this may be to 1 episode of diarrhea over the weekend of 08/07 + amiloride use; patient takes amiloride for h/o hypomagnesemia/mag renal wasting Hold amiloride Trend BMP q4h #Hypomagnesemia Mag 1.5 on arrival Magnesium sulfate 1 g IV x 2 Continue p.o. magnesium supplements TID Recheck a.m. mag #Parkinson's disease Continue carbidopalevodopa x5 per day #HLD Continue statin #BPH Hold alfuzosin d/t hypotension Disposition: Admit to PCU telemetry VTE PPx: Continue Eliquis History of Present Illness Chief Complaint: Referred by doctor for hypotension and tachycardia Primary Care Provider: RICH Jc Shane is a pleasant 68-year-old male with PMH of T2DM, HTN, sleep apnea, Parkinson disease, cardiomyopathy, and atrial flutter (on apixaban). He presented on 08/10 for lightheadedness, sustained tachycardia, and hypotension since Monday 08/07. Remote history of atrial flutter requiring hospitalization at [facility] 06/28 - 06/30. BP was 62/45 on arrival, however rebounded on its own up to 103/82 once patient was lying flat in bed. Patient reports he is largely asymptomatic at this time except for headache and some lightheadedness with walking. No reported fevers at home. No chest pain, SOB, or chest palpi tations. He has been taking his blood pressure every day for the past 4 days, and it has been low with systolic in the 90 range. His home heart rate has also been up to 130 to 140 bpm, and reports that this has been sustained. Patient follows with Dr. Meza outpatient, and when he and his called the office today, they recommended he come to the emergency department to be evaluated. Prior to June 2024, patient had no history of atrial flutter. His atrial flutter went away without the need for ablation during his last hospitalization. Patient took all of his regular morning medicines today. In regard to medication changes, his metoprolol succinate was recently increased from 25 to 50 mg p.o. QAM. He was also recently started on Eliquis 5 mg p.o. daily, and reports no missed dosages. No prior history of issues with his kidneys, and he reports he has not had a elevated potassium in the past. Patient denies smoking, tobacco use, recent alcohol use. Patient is tachycardic at 132 bpm at time of admission; vitals otherwise stable. ED course: Calcium gluconate 1000 mg IV x 2 Lopressor 5 mg IV Magnesium sulfate 1 g IV Sodium bicarbonate 50 mill equivalents IV Regular insulin 10 units IV Dextrose 250 mL IV ROS: Patient endorses headache, lightheadedness when walking, dry cough, and one episode of diarrhea on Thursday. Patient denies fever, chills, night sweats, dizziness, rashes, tick bites, changes in vision, chest pain, chest palpitations, pleuritic CP, SOB, productive cough, abdominal pain, N/V, changes in urinary bowel habits, burning radiation, blood in the urine or stool, or numbness or tingling in the arms or legs. Allergies Allergy/AdvReac Type Severity Reaction Status Date / Time No Known Allergies Allergy Verified 08/10/24 12:17 Home Medications Medication Instructions Recorded Confirmed Type multivitamin 1 tab PO QAM 01/04/19 08/10/24 History atorvastatin 20 mg tablet 20 mg PO QPM #90 tabs 09/09/23 08/10/24 Rx magnesium oxide 400 mg (241.3 mg 400 mg PO TID #270 tabs 10/16/23 08/10/24 Rx magnesium) tablet sitagliptin phosphate 50 1 tab PO BID 90 days #180 tabs 01/07/24 08/10/24 Rx mg-metformin 1,000 mg tablet amiloride 5 mg tablet 5 mg PO QAM 06/28/24 08/10/24 History carbidopa 25 mg-levodopa 100 mg 1 tab PO UD 06/28/24 08/10/24 History tablet metoprolol succinate 50 mg 50 mg PO DAILY #30 tabs 06/30/24 08/10/24 Rx tablet,extended release 24 hr alfuzosin 10 mg tablet,extended 10 mg PO QAM 07/06/24 08/10/24 History release 24 hr apixaban 5 mg tablet (Eliquis) 5 mg PO BID #60 tabs 08/04/24 08/10/24 Rx Past Med/Surg History Problem List (Updated 08/11/24 @ 06:54 by Kris Chamorro MD) Shock Hypotension Hyperkalemia Hypomagnesemia (Acute) Light-headed feeling (Acute) Acute hyperkalemia (Acute) Atrial flutter with rapid ventricular response (Acute) Mitral regurgitation Cardiomyopathy Atrial flutter CKD (chronic kidney disease) (Acute) Atrial flutter by electrocardiography (Acute) Spinal stenosis, lumbar region with neurogenic claudication Cervical pain (neck) Osteopenia Lumbar facet joint syndrome Sacroiliitis Hypomagnesemia Kidney stones, calcium oxalate Vitamin D deficiency Tremor Parkinson disease Stenosis of cavernous portion of right internal carotid artery History of colon polyps Anemia Neurogenic claudication due to lumbar spinal stenosis Status post lumbar surgery L5-S1 Decompression and Fusion, L2-L5 Hardware Removal, Spinal Cord Monitoring, Application of Bone Morphogenetic Protein and Allograft - Adalid M Shweta, DO Bilateral cataracts Left ventricular hypertrophy Echocardiogram 12/24/2018-LVEF 45-50 percent, severe inferolateral hypokinesis. Mid base to mid inferior hypokinesis. Echocardiogram 01/25/2019-mild concentric left ventricular hypertrophy with normal systolic function. Quijano treadmill score 6; met level achieved was 7 Hx of pyloric stenosis s/p surgical repair Type 2 diabetes mellitus NIDDM Sleep apnea inconclusive sleep study, no device prescribed Lumbar radiculopathy Dyslipidemia Carotid artery plaque Mild nonobstructive plaque noted on 2014 carotid doppler Chronic osteoarthritis Enlarged prostate with lower urinary tract symptoms (LUTS) Hypertension Medical History Hearing loss Obesity Surgical History History of lithotripsy WITH CYSTOSCOPY/STENT History of non-cataract eye surgery History of cataract surgery History of back surgery 2 total Hx of colonoscopy History of partial knee replacement LEFT History of lumbar fusion L2-L5 History of gastric surgery For pyloric stenosis Family History Father Coronary heart disease Myocardial infarction Diabetes Heart disease Sister Family history of gallbladder disease Diabetes Other Family history of kidney stones Denies family history of Ovarian cancer Prostate cancer Breast cancer Lung cancer Colorectal cancer Social History Smoking Status: Never smoker Second Hand Exposure: Yes (WHEN HE WAS WORKING); Do You Dip or Chew Tobacco: No; Hx Alcohol Use: No Hx Substance Use: No Preferred Language: Latvian Communication Ability: Effective Visual Impairment: No Limitations Hearing Ability: Normal Fisheries Biologist Required: No Beliefs That Will Affect Care: None marital status: Current Living Situation: Spouse Current Living Situation Comment: Home with spouse 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 How many Children do You have: 0 Other Information That Helps Us Care for You: No Feels Safe at Home: Yes Safety Concerns: Feels Safe At This Time Childhood Exposure to Second-Hand Smoke: No Diet: regular Diet Comment: regular caffeine: Yes during the past year weight has: remained stable Dental Care, Regularly: Yes Physical Activity Frequency: Other Seatbelt Use: sometimes Sunscreen Use: No Assistive Devices: Hearing Aid - Bilateral Review of Systems Review of Systems: See HPI above Physical Exam Physical Exam: General: no acute distress; pleasant affect; at bedside; non-toxic appearing; well-nourished; cooperative; SpO2 99% on RA HEENT: normocephalic, atraumatic; no scleral icterus; PERRLA; vision and hearing grossly intact Neck: supple; trachea midline Skin: warm, dry without signs of tenting; no cyanosis; no rashes, bruising, lesions, or erythema noted CV: chest wall NTP; irregularly irregular rhythm, tachycardic at 140 bpm; S1/S2 normal; no murmurs/rubs/gallops; pulses intact and symmetric at radial, DP, and PT Lungs: no acute respiratory distress; symmetrical chest wall expansion; clear breath sounds across all lung woo w/o adventitious sounds; no wheezing ABD: Soft, NTP; BS present; no rebound/guarding; no distention MSK: Resting tremor in right hand; no edema noted in the LEs b/l, nonerythematous Neuro: A&Ox3; normal mood and affect; fluent speech; no focal deficits; sensation intact and symmetric in the lower extremities bilaterally Results & Data Results & Data Vital Signs (Past 12 Hours) Vital Signs Temp Pulse Pulse Resp BP BP Pulse Ox 08/10/24 12:00 132 H 18 107/83 100 08/10/24 11:40 135 H 20 93/72 L 96 08/10/24 11:30 137 H 20 111/84 98 08/10/24 11:21 138 H 112/86 08/10/24 11:14 141 H 20 103/82 98 08/10/24 11:09 140 H 08/10/24 10:58 36.6 C 144 H 20 62/45 L 99 O2 Del Method 08/10/24 12:00 Room Air 08/10/24 11:40 Room Air 08/10/24 11:30 Room Air 08/10/24 11:21 08/10/24 11:14 Room Air 08/10/24 11:09 08/10/24 10:58 Room Air Laboratory Results Abnormal lab results 08/10/24 08/10/24 Range/Units 11:10 11:14 RBC 4.63 L (4.70-6.10) M/uL Hgb 13.2 L (14.0-18.0) g/dl POC Hgb 13.6 L (14.0-18.0) g/dl Hct 41.3 L (42.0-52.0) % POC Hct 40 L (42-52) % Neut # (Auto) 6.81 H (1.40-6.50) K/uL PT 12.1 H (9.0-12.0) Seconds POC Potassium 5.8 H (3.3-5.0) mmol/L Potassium 6.0 H (3.5-5.1) mmol/L POC Total CO2 23 L (24-31) mmol/L POC BUN 34 H (7-18) mg/dl BUN 33 H (6-23) mg/dl Creatinine 1.58 H (0.6-1.4) mg/dl POC Creatinine 1.7 H (0.6-1.3) mg/dl BUN/Creatinine Ratio 20.9 H (10-20) Glucose 144 H (70-99(Fasting)) mg/dl POC Glucose (other) 142 H (70-99) mg/dl Magnesium 1.5 L (1.7-2.4) mg/dl ALT 4 L (7-52) U/L TSH 4.627 H (0.300-4.500) uIu/ml Diagnostic Findings Chest X-Ray 08/10/24 11:12 XR chest 1V portable CLINICAL HISTORY: Dysrhythmia COMPARISON STUDY: 06/28/2024 FINDINGS: Single view chest is unchanged and demonstrate no acute pulmonary process. There is mild cardiomegaly with left ventricular prominence. There is no pleural effusion or pneumothorax. IMPRESSION: Stable exam demonstrating mild cardiomegaly and no acute cardiopulmonary process. ACT 112: Negative or not required by law. Electronically signed by: Nikki Victor M.D. 08/10/2024 11:33 AM ECG Additional Comments: ECG revealed atrial flutter with 2-1 AV conduction at 140 bpm; QTc 399 Code Status & VTE Plan Code Status Full code VTE Prophylaxis Plan VTE Prophylaxis will be ordered: Yes Critical Care Time Critical Care Time: Yes Total Critical Care Time: 90 Supervising Physician Co-Signing Physician Notes Attending Attestation & Admit Note: Pt seen/examined, chart reviewed, admission care plan d/w MALVIN Mendoza. I agree w/ the rousseau components of his documentation except --> beta blockers to be held due to persistent hypotension. 68yo male with history of atrial flutter (hospitalized for such 06/2024), cardiomyopathy with EF 40-45%, Parkinson's disease, type 2 diabetes, dyslipidemia, hypertension, and lumbar spinal stenosis. Patient presented today due to headache, mild lightheadedness with walking, hypotension at home for several days (systolics 90s at home), and persistent tachycardia with HRs >130 (also at home). Due to the above he presented to [facility] for evaluation. Upon presentation he was in aflutter with RVR and was hypotensive with initial BP of 62/45. Repeat BPs were better in the 90s following IV fluids. He was given IV & PO beta shane without any significant improvement in his HRs. His BPs remained borderline low in the 90s as well. He was initially admitted to PCU as his BPs were 90-100 systolic. He was initiated on amiodarone infusion for rate/rhythm control in the face of his hypotension. Eliquis was continued. We discussed his care with Dr Josue Guzman, cardiology, who would be seeing him in consultation. In addition to the above patient had moderate hyperkalemia with initial K level of 6. He was given calcium IV, bicarbonate IV, and insulin/D50. Patiromer & serial K levels were ordered. Despite all of the above measures the pt's HRs remained in the 130s/140s and his systolic BP dropped to the 80s again in PCU. We contacted Dr Guzman who advised emergent cardioversion. We then coordinated his care with anesthesia and nursing to facilitate transfer to the ICU for cardioversion. Subsequently Dr Guzman performed cardioversion with successful buddhism of NSR following 1 shock. Despite conversion to NSR the patient remained in shock with systolic BPs in the 80s. We were anticipating improvement in his BPs following buddhism of NSR but this did not happen. Thus, we kept patient in the ICU for ongoing BP management. The etiology of the persistent shock was uncertain. Procal, lactate, and blood cx's were dispatched; procal/lactate both normal. Septic shock unlikely although not ruled out. Cortisol level checked and only 5 -- in light of low BP, hyperkalemia, etc this is likely c/w adrenal insufficiency. I was in touch with Dr Wolfe from ICU and he agreed to accept Mr Wilson for ongoing care. He advised phenylephrine for persistent shock, if needed. PMH/PSH/allergies/meds/sochx/famhx - reviewed vitals - tachycardic, hypotensive, afebrile, nontoxic gen - lying comfortably in bed, NAD neck - no JVD mouth - MMM heart - tachycardic, s1 s2, irregular, no murmur lungs - CTA b/l abd - soft NT ND BS+ ext - no peripheral edema, pulses b/l feet 1+ b/l labs, imaging, ekgs reviewed A/P: 1. a.flutter with RVR s/p emergent cardioversion by Dr Guzman - appreciate cardiology & anesthesia assistance Cont Eliquis Cont amiodarone infusion to maintain NSR Ultimately needs aflutter ablation Hold beta shane due to persistent shock 2. shock - initially thought to be cardiogenic in etiology but with buddhism of NSR his shock continued May be 2nd to adrenal insufficiency/shock Doubt septic shock Consider IV steroids Follow blood cx's Is on chronic Eliquis thus obstructive shock from PEs not suspected Hold BB Hold alpha shane 3. hyperkalemia - 2nd to adrenal insufficiency, amiloride use, and decreased renal perfusion from shock Cont K binders Strongly consider IV steroids Hold amiloride Serial BMPs 4. chronic systolic CHF with prior echo showing EF 40-45% Remains compensated despite #1, #2 Appreciate cardiology assistance Holding BB due to #2 Not a candidate for ANISH/ARB/Entresto due to hyperkalemia, etc Appreciate Cardiology/Anesthesia/ICU assistance Highly complex care for the above issues including life-threatening hyperkalemia, shock, etc Total critical care time - about 90 minutes Kris Chamorro MD PG Care Time/CCT Total # of Minutes Spent Total Time Spent with Patient: Total time spent is greater than 50% in coordination of care (as documented) at patient's floor/unit and/or counseling patient: Critical Care Time: Yes Total Critical Care Time: 90 Coding Level of Care Code Established Pt None Patient Type Established Medical Decision Making High Complexity Diagnoses Atrial flutter with rapid ventricular response I48.92 Shock R57.9 Hyperkalemia E87.5 Hypomagnesemia E83.42 Cardiomyopathy I42.9 CKD (chronic kidney disease) N18.9 Parkinson disease G20 Type 2 diabetes mellitus E11.9 Dyslipidemia E78.5 Additional Codes Critical Care Time - Critical Care Time: Yes ([id number]) Time Spent (min) 90
[2024-08-10] MEDS ORDERED: AMIODARONE IV BOLUS & DRIP IV STA (13:07)
[2024-08-10] MEDS ORDERED: 0.2 MICRON FILTER SET 1 EACH IV STA (13:07)
[2024-08-10] MEDS ORDERED: STAT IV Infusion **Titration per Protocol STA ×2 (13:07→17:39)
[2024-08-10] MEDS: SODIUM CHLORIDE 0.9% 250 ML IV ONE (13:16)
[2024-08-10 13:19] LABS: Appearance Urine Clear (Clear); Bilirubin Urine Negative (Negative); Blood Urine Negative (Negative); Color Urine Yellow; Glucose Urine UA Negative (Negative); Ketones Urine Negative (Negative); Leukocyte Esterase Urine Negative (Negative); Nitrite Urine Negative (Negative); Protein Urine Negative (Negative); Specific Gravity Urine 1.018 (1.000-1.030); Urobilinogen Urine Negative (Negative); pH Urine >= 9.0 (4.5-7.5)
[2024-08-10] MEDS: AMIODARONE / D5W 150 MG/100 ML BAG IV STA (13:53)
[2024-08-10] MEDS: MAGNESIUM SULFATE / D5W 1 GM/100 ML BAG IV ONE (13:53)
[2024-08-10] MEDS: AMIODARONE / D5W 360 MG/200 ML BAG IV ONE (14:04)
[2024-08-10 15:09] LABS: Calcium 9.6 mg/dl (8.6-10.3); Creatinine Clr Calc Pharmacy 52.3 ml/min; Potassium 4.6 mmol/L (3.5-5.1)
[2024-08-10] MEDS: SODIUM CHLORIDE 0.9% 500 ML IV ONE (16:06)
[2024-08-10] MEDS: CARBIDOPA/LEVODOPA 25/100MG TAB PO SCH (16:07)
--- NOTE | 2024-08-10 16:19 | Anesthesiology Consultation ---
Date of Service August 10, 2024 Assessment & Plan Chart Review Chart Review: Acceptable Risk for Surgery and Patient NOT seen in Pre Admission Testing History Height/Weight Height: 5 ft 10 in Weight: 95 kg Allergies Allergy/AdvReac Type Severity Reaction Status Date / Time No Known Allergies Allergy Verified 08/10/24 12:17 Medications Home Medications Medication Instructions Recorded Confirmed Last Taken multivitamin 1 tab PO QAM 01/04/19 08/10/24 06/28/24 atorvastatin 20 mg tablet 20 mg PO QPM #90 tabs 09/09/23 08/10/24 06/27/24 magnesium oxide 400 mg (241.3 mg 400 mg PO TID #270 tabs 10/16/23 08/10/24 06/28/24 magnesium) tablet sitagliptin phosphate 50 1 tab PO BID 90 days #180 tabs 01/07/24 08/10/24 06/28/24 mg-metformin 1,000 mg tablet amiloride 5 mg tablet 5 mg PO QAM 06/28/24 08/10/24 06/28/24 carbidopa 25 mg-levodopa 100 mg 1 tab PO UD 06/28/24 08/10/24 06/28/24 10:00 tablet metoprolol succinate 50 mg 50 mg PO DAILY #30 tabs 06/30/24 08/10/24 Unknown tablet,extended release 24 hr alfuzosin 10 mg tablet,extended 10 mg PO QAM 07/06/24 08/10/24 Unknown release 24 hr apixaban 5 mg tablet (Eliquis) 5 mg PO BID #60 tabs 08/04/24 08/10/24 Unknown Active Medications Generic Name Dose Route Start Last Admin Trade Name Rogelio PRN Reason Stop Dose Admin Carbidopa/Levodopa 1 tab 08/10/24 14:00 08/10/24 16:07 Carbidopa/Levodopa 25/100mg Tab PO 09/09/24 13:59 Not Given 0600,1000,1400,1800,2200 LIZA Amiodarone HCl/Dextrose 360 mg in 200 mls @ 33.333 mls/hr 08/10/24 13:17 08/10/24 14:04 Nexterone / D5w IV 08/10/24 19:16 1 mg/min ONE ONE 33.3 mls/hr Administration 1 MG/MIN Sodium Chloride 500 mls @ 999 mls/hr 08/10/24 16:01 04/09/25 16:06 Nss IV 08/10/24 16:31 999 mls/hr .Q31M ONE Administration Past Medical History Medical History Hearing loss Obesity Past Family History Family History Father Coronary heart disease Myocardial infarction Diabetes Heart disease Sister Family history of gallbladder disease Diabetes Other Family history of kidney stones Denies family history of Ovarian cancer Prostate cancer Breast cancer Lung cancer Colorectal cancer Past Surgical History Surgical History History of lithotripsy WITH CYSTOSCOPY/STENT History of non-cataract eye surgery History of cataract surgery History of back surgery 2 total Hx of colonoscopy History of partial knee replacement LEFT History of lumbar fusion L2-L5 History of gastric surgery For pyloric stenosis Social History Smoking Status: Never smoker Do You Dip or Chew Tobacco: No Hx Alcohol Use: No Hx Substance Use: No substance use type: does not use Physical Exam Vital Signs Last Vital Signs Temp 36.3 C L 08/10/24 15:53 Pulse 136 H 08/10/24 15:53 Resp 18 08/10/24 15:53 BP 78/52 L 08/10/24 15:53 Pulse Ox 98 08/10/24 15:53 O2 Del Method Room Air 08/10/24 15:53 Testing Laboratory Results 08/10/24 11:10 08/10/24 14:34 PT 12.1 Seconds (9.0-12.0) H 08/10/24 11:10 INR 1.1 (0.9-1.1) 08/10/24 11:10 APTT 26 Seconds (21-31) 08/10/24 11:10 Urine Color Yellow 08/10/24 13:01 Urine Appearance Clear (Clear) 08/10/24 13:01 Urine pH >= 9.0 (4.5-7.5) H 08/10/24 13:01 Ur Specific [place] 1.018 (1.000-1.030) 08/10/24 13:01 Urine Protein Negative (Negative) 08/10/24 13:01 Urine Glucose (UA) Negative (Negative) 08/10/24 13:01 Urine Ketones Negative (Negative) 08/10/24 13:01 Urine Nitrite Negative (Negative) 08/10/24 13:01 Ur Leukocyte Esterase Negative (Negative) 08/10/24 13:01 08/10/24 11:14 POC Glucose (other) 142 H
[2024-08-10] MEDS ORDERED: PROPOFOL IV EMULSION 10 MG/ML 20 ML VIAL IV ONE (16:20)
[2024-08-10] MEDS ORDERED: PHENYLEPHRINE 100MCG/ML 5ML SYR ONE ×2 (16:20→17:28)
[2024-08-10] MEDS ORDERED: MIDAZOLAM HCL 1 MG/ML 2ML VIAL ONE (16:21)
--- NOTE | 2024-08-10 16:45 | Cardiology Consultation ---
Date of Consultation August 10, 2024 Assessment & Plan (1) Atrial flutter with rapid ventricular response: (2) Cardiomyopathy: (3) Hypotension: Plan ASSESSMENT/PLAN: 1. Atrial flutter: Paroxysmal/recurrent. Due to ongoing hypotension, decision was made to proceed with urgent DC cardioversion. Appreciate hospitalist service assistance in arranging for anesthesia and transferred to ICU to perform the procedure. Risk and benefits of the procedure were discussed in detail with patient and his at the bedside. He was agreeable to proceed. Continue anticoagulation for stroke risk reduction. He has been compliant with therapeutic anticoagulation for greater than 4 weeks without interruption. Following cardioversion, would recommend ongoing amiodarone for now. Ultimately, atrial flutter ablation is reportedly pending with electrophysiology, Dr. Meza. 2. Hypotension: Initially, concerned that atrial flutter was contributing to hypotension. While he was hospitalized in June, he was not significantly hypotensive despite atrial flutter. Continue IV fluid but caution to avoid hypervolemia. Consider sepsis evaluation. 3. Cardiomyopathy: Mildly reduced LV systolic function previously while in atrial flutter. Can repeat echo in the future. Possibly tachycardia induced. He has not appeared hypervolemic. Continue metoprolol succinate if blood pressure allows. 4. Disposition: Cardiology will continue to follow. Arrangements for urgent DC cardioversion given hypotension and concern for unstable atrial flutter. Addendum: DC cardioversion was performed and successful with 50 J. Please see procedure note under separate cover. He remained hypotensive. He received phenylephrine through anesthesiology and some IV fluid. Blood pressure then stabilized with systolic blood pressure in the mid 80s to 90s. He was asymptomatic and tolerat ed the procedure well. Dr. Chamorro of the primary hospitalist service and Carroll Mendoza PA-C of the hospitalist service, were notified. Spoke with Dr. Chamorro via telephone so that other causes of hypotension could be evaluated and treated as appropriate. He remains stable to be transferred back to PCU but if hypotension worsens, would have low threshold for ICU care. Patient's was also updated at the bedside. 50 minutes critical care time spent evaluating patient, treating for potential unstable arrhythmia, hypotension, coordinating care, counseling patient, discussing with anesthesia/hospitalist service, and completing documentation. This time does not include time otherwise spent with separately noted procedure. Thank you for allowing me to participate in the care of your patient. Please call for any other questions or concerns. Sincerely, Josue Guzman M.D. History of Present Illness Reason for Consultation: atrial flutter Requesting Physician: Kris Chamorro MD Attending Physician: Kris Chamorro MD History of Present Illness Mr. Wilson is a very pleasant 68-year-old gentleman with a history significant for atrial flutter, cardiomyopathy, Parkinson's, type 2 diabetes, dyslipidemia, hypertension, and spinal stenosis. He was hospitalized on 06/28/2024 after presenting for an outpatient echo on the same date and was noted to have reduced LV systolic function and atrial flutter with rapid ventricular response. He was sent to the ER for further evaluation. It was felt that it was new onset within 24 hours and he was placed on am iodarone. He was completely asymptomatic in regards to the atrial flutter. He converted to sinus rhythm. He was seen by electrophysiology, Dr. Meza with plans for ablation. He has had the following studies/procedures: 1. Echo 06/28/2024 [facility]: Normal LV size. EF 40-45%. Mild global hypokinesis with moderate hypokinesis of the inferior and posterior friend from base to mid ventricle per report. Moderate left atrial dilation. Mildly reduced RV systolic function. Sclerotic aortic valve. Mild to moderate MR. Atrial flutter with RVR. He presented again today on 08/10/2024 with atrial flutter with rapid ventricular response. He had noted increased heart rate for the past 4 days when checking his blood pressure at home with heart rates in the 130s to 140s. He denies chest pain, shortness of breath, syncope, near syncope, palpitations, edema, or bleeding such as melena, hematochezia, or hematuria. When he arrived to the ER, blood pressure was reportedly 62/45 mmHg but improved to systolic blood pressure 103 without intervention after laying down in bed. He was given intravenous metoprolol in the ER without improvement of his heart rate. Due to ongoing intermittent hypotension, I was called by the admitting hospitalist service. Recommended intravenous amiodarone if blood pressure stable, but otherwise, urgent DC cardioversion to be entertained. Received a message at 1601 from admitting hospitalist, Carroll Mendoza PA-C that blood pressure once again dropped to 78/52 mmHg. He was receiving IV fluids. He was also noted to be hyperkalemic on presentation. Review of systems: As above. Family history: Father had NE at the age of 52. Social history: He denies smoking. He denies alcohol or drug abuse. He lives at home with his , Gabi. No children. 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 His was present at the bedside. Allergies Allergy/AdvReac Type Severity Reaction Status Date / Time No Known Allergies Allergy Verified 08/10/24 12:17 Home Medications Medication Instructions Recorded Confirmed Type multivitamin 1 tab PO QAM 01/04/19 08/10/24 History atorvastatin 20 mg tablet 20 mg PO QPM #90 tabs 09/09/23 08/10/24 Rx magnesium oxide 400 mg (241.3 mg 400 mg PO TID #270 tabs 10/16/23 08/10/24 Rx magnesium) tablet sitagliptin phosphate 50 1 tab PO BID 90 days #180 tabs 01/07/24 08/10/24 Rx mg-metformin 1,000 mg tablet amiloride 5 mg tablet 5 mg PO QAM 06/28/24 08/10/24 History carbidopa 25 mg-levodopa 100 mg 1 tab PO UD 06/28/24 08/10/24 History tablet metoprolol succinate 50 mg 50 mg PO DAILY #30 tabs 06/30/24 08/10/24 Rx tablet,extended release 24 hr alfuzosin 10 mg tablet,extended 10 mg PO QAM 07/06/24 08/10/24 History release 24 hr apixaban 5 mg tablet (Eliquis) 5 mg PO BID #60 tabs 08/04/24 08/10/24 Rx Problem List (Updated 08/10/24 @ 17:51 by Franki Guzman MD) Hypotension Hyperkalemia Hypomagnesemia (Acute) Light-headed feeling (Acute) Acute hyperkalemia (Acute) Atrial flutter with rapid ventricular response (Acute) Mitral regurgitation Cardiomyopathy Atrial flutter CKD (chronic kidney disease) (Acute) Atrial flutter by electrocardiography (Acute) Spinal stenosis, lumbar region with neurogenic claudication Cervical pain (neck) Osteopenia Lumbar facet joint syndrome Sacroiliitis Hypomagnesemia Kidney stones, calcium oxalate Vitamin D deficiency Tremor Parkinson disease Stenosis of cavernous portion of right internal carotid artery History of colon polyps Anemia Neurogenic claudication due to lumbar spinal stenosis Status post lumbar surgery L5-S1 Decompression and Fusion, L2-L5 Hardware Removal, Spinal Cord Monitoring, Application of Bone Morphogenetic Protein and Allograft - [place] DO Bilateral cataracts Left ventricular hypertrophy Echocardiogram 12/24/2018-LVEF 45-50 percent, severe inferolateral hypokinesis. Mid base to mid inferior hypokinesis. Echocardiogram 01/25/2019-mild concentric left ventricular hypertrophy with normal systolic function. Quijano treadmill score 6; met level achieved was 7 Hx of pyloric stenosis s/p surgical repair Type 2 diabetes mellitus NIDDM Sleep apnea inconclusive sleep study, no device prescribed Lumbar radiculopathy Dyslipidemia Carotid artery plaque Mild nonobstructive plaque noted on 2014 carotid doppler Chronic osteoarthritis Enlarged prostate with lower urinary tract symptoms (LUTS) Hypertension Patient History Medical History Hearing loss Obesity Surgical History History of lithotripsy WITH CYSTOSCOPY/STENT History of non-cataract eye surgery History of cataract surgery History of back surgery 2 total Hx of colonoscopy History of partial knee replacement LEFT History of lumbar fusion L2-L5 History of gastric surgery For pyloric stenosis Family History Father Coronary heart disease Myocardial infarction Diabetes Heart disease Sister Family history of gallbladder disease Diabetes Other Family history of kidney stones Denies family history of Ovarian cancer Prostate cancer Breast cancer Lung cancer Colorectal cancer Social History Smoking Status: Never smoker Second Hand Exposure: Yes (WHEN HE WAS WORKING); Do You Dip or Chew Tobacco: No; Hx Alcohol Use: No Hx Substance Use: No Preferred Language: Chadian Communication Ability: Effective Visual Impairment: No Limitations Hearing Ability: Normal Synthetic Plasterer Required: No Beliefs That Will Affect Care: None marital status: Current Living Situation: Spouse Current Living Situation Comment: Home with spouse 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 Alert. HEENT: Anicteric sclera. Neck: No JVD. Cardiac: Regular and tachycardic. Normal S1-S2. No murmurs, rubs, or gallops. Pulmonary: Clear to auscultation bilaterally without wheezes, rales, or rhonchi. Abdomen: Soft, nontender, nondistended, with normoactive bowel sounds. No bruits noted. Extremities: 2+ radial pulses bilaterally. 2+ posterior tibialis pulses bilaterally. No pitting edema or cyanosis. Results & Data Vital Signs (Past 12 Hours) Vital Signs Temp Pulse Pulse Resp BP BP Pulse Ox 08/10/24 15:53 36.3 C L 136 H 18 78/52 L 98 08/10/24 14:00 08/10/24 14:00 146 H 08/10/24 13:43 36.2 C L 143 H 96/66 L 99 08/10/24 13:12 143 H 16 85/66 L 99 08/10/24 12:17 142 H 18 97/75 L 99 08/10/24 12:00 132 H 18 107/83 100 08/10/24 11:40 135 H 20 93/72 L 96 08/10/24 11:30 137 H 20 111/84 98 08/10/24 11:21 138 H 112/86 08/10/24 11:14 141 H 20 103/82 98 08/10/24 11:09 140 H 08/10/24 10:58 36.6 C 144 H 20 62/45 L 99 Pulse Ox O2 Del Method O2 Del Method 08/10/24 15:53 Room Air 08/10/24 14:00 100 Room Air 08/10/24 14:00 08/10/24 13:43 Room Air 08/10/24 13:12 Room Air 08/10/24 12:17 Room Air 08/10/24 12:00 Room Air 08/10/24 11:40 Room Air 08/10/24 11:30 Room Air 08/10/24 11:21 08/10/24 11:14 Room Air 08/10/24 11:09 08/10/24 10:58 Room Air Laboratory Results Laboratory Results - last 24 hr 08/10/24 08/10/24 08/10/24 11:10 11:14 11:30 WBC 8.79 RBC 4.63 L Hgb 13.2 L POC Hgb 13.6 L Hct 41.3 L POC Hct 40 L MCV 89.2 MCH 28.5 MCHC 32.0 RDW Std Deviation 43.9 RDW Coeff of Keke 13.5 Plt Count 167 MPV 10.8 Immature Gran % (Auto) 0.2 Neut % (Auto) 77.4 Lymph % (Auto) 15.4 [place] % (Auto) 6.3 Eos % (Auto) 0.6 Baso % (Auto) 0.1 Neut # (Auto) 6.81 H Lymph # (Auto) 1.35 [place] # (Auto) 0.55 Eos # (Auto) 0.05 Baso # (Auto) 0.01 Immature Gran # (Auto) 0.02 PT 12.1 H INR 1.1 APTT 26 PTT Ratio 1.0 POC Sodium 139 Sodium 137 POC Potassium 5.8 H Potassium 6.0 H POC Chloride 106 Chloride 105 Carbon Dioxide 26 POC Total CO2 23 L Anion Gap 6 POC Anion Gap 17.0 POC BUN 34 H BUN 33 H Creatinine 1.58 H POC Creatinine 1.7 H Est Cr Clr Drug Dosing 50.3 eGFR 46.76 BUN/Creatinine Ratio 20.9 H Glucose 144 H POC Glucose (other) 142 H Calcium 9.9 POC Ioniz Calcium Shanique 1.24 Magnesium 1.5 L Total Bilirubin 0.6 AST 23 ALT 4 L Alkaline Phosphatase 69 Troponin I High Sens 9.9 Total Protein 7.1 Albumin 4.3 Globulin 2.8 Albumin/Globulin Ratio 1.5 TSH 4.627 H Free T4 0.80 Urine Color Urine Appearance Urine pH Ur Specific [place] Urine Protein Urine Glucose (UA) Urine Ketones Urine Blood Urine Nitrite Urine Bilirubin Urine Urobilinogen Ur Leukocyte Esterase SARS-CoV-2, RNA, NAAT NEGATIVE 08/10/24 08/10/24 13:01 14:34 WBC RBC Hgb POC Hgb Hct POC Hct MCV MCH MCHC RDW Std Deviation RDW Coeff of Keke Plt Count MPV Immature Gran % (Auto) Neut % (Auto) Lymph % (Auto) [place] % (Auto) Eos % (Auto) Baso % (Auto) Neut # (Auto) Lymph # (Auto) [place] # (Auto) Eos # (Auto) Baso # (Auto) Immature Gran # (Auto) PT INR APTT PTT Ratio POC Sodium Sodium 139 POC Potassium Potassium 4.6 D POC Chloride Chloride 107 Carbon Dioxide 25 POC Total CO2 Anion Gap 7 POC Anion Gap POC BUN BUN 35 H Creatinine 1.52 H POC Creatinine Est Cr Clr Drug Dosing 52.3 eGFR 48.99 BUN/Creatinine Ratio 23.0 H Glucose 77 POC Glucose (other) Calcium 9.6 POC Ioniz Calcium [place] Magnesium Total Bilirubin AST ALT Alkaline Phosphatase Troponin I High Sens Total Protein Albumin Globulin Albumin/Globulin Ratio TSH Free T4 Urine Color Yellow Urine Appearance Clear Urine pH >= 9.0 H Ur Specific [place] 1.018 Urine Protein Negative Urine Glucose (UA) Negative Urine Ketones Negative Urine Blood Negative Urine Nitrite Negative Urine Bilirubin Negative Urine Urobilinogen Negative Ur Leukocyte Esterase Negative SARS-CoV-2, RNA, NAAT Diagnostic Findings Labs reviewed and notable for mildly abnormal but stable renal function, initial hyperkalemia with a potassium of 6 but improved to 4.6 this afternoon, normal sodium level, normal high-sensitivity troponin x 1, minimally elevated TSH, normal WBC, mild anemia. Telemetry personally reviewed: Atrial flutter with rapid ventricular response. ECG personally reviewed from 08/10/2024 at 11:07 AM: Atrial flutter 140 bpm. History and physical report reviewed. Chest x-ray 08/10/2024: Stable exam demonstrating mild cardiomegaly and no acute cardiopulmonary process per radiology. Medications Administered Current Inpatient Medications Acetaminophen (Acetaminophen 325 Mg Tab) 650 mg PO Q4H PRN PRN Reason: Pain or Fever Stop: 09/09/24 13:59 Apixaban (Apixaban 5 Mg Tablet) 5 mg PO BID LIZA Stop: 09/09/24 20:59 Atorvastatin Calcium (Atorvastatin 20 Mg Tab) 20 mg PO QPM [facility]ZA Stop: 09/09/24 20:59 Carbidopa/Levodopa (Carbidopa/Levodopa 25/100mg Tab) 1 tab PO 0600,1000,1400,1800,2200 [facility] Stop: 09/09/24 13:59 Last Admin: 08/10/24 16:07 Dose: Not Given Amiodarone HCl/Dextrose (Nexterone / D5w) 360 mg in 200 mls @ 33.333 mls/hr IV ONE ONE Stop: 08/10/24 19:16 Last Admin: 08/10/24 14:04 Dose: 1 mg/min, 33.3 mls/hr Amiodarone HCl/Dextrose (Nexterone / D5w) 360 mg in 200 mls @ 16.667 mls/hr IV .Q12H [facility] Stop: 09/09/24 19:14 Magnesium Oxide (Magnesium Oxide 400 Mg Tab) 400 mg PO TID LIZA Stop: 09/09/24 20:59 Metoprolol Succinate (Metoprolol Succ 50mg Ext Rel Tab) 50 mg PO DAILY [facility] Stop: 09/10/24 08:59 PG Care Time/CCT Total # of Minutes Spent Total Time Spent with Patient: Total time spent is greater than 50% in coordination of care (as documented) at patient's floor/unit and/or counseling patient: Critical Care Time: Yes Total Critical Care Time: 50 Coding Level of Care Code 85120 CRITICAL CARE 1ST 30-74M Diagnoses Atrial flutter with rapid ventricular response I48.92 Cardiomyopathy I42.9 Hypotension I95.9 Additional Codes Critical Care Time - Critical Care Time: Yes ([id number]) Time Spent (min) 50
--- NOTE | 2024-08-10 17:02 | Cardioversion ---
Date of Service August 10, 2024 PG Electrical Cardioversion Rp Electrical Cardioversion Report Procedure: DC Cardioversion Indication: Atrial flutter with RVR and hypotension Informed written consent: Obtained Sedation: Provided by anesthesiology Antiarrhythmic: IV amiodarone initiated same day as procedure. Anticoagulation: Therapeutic eliquis without interruption > 4 weeks Time Out: Performed Procedural details: Once sufficiently sedated, 50 Joules were delivered in a synchronized fashion, which successfully converted atrial flutter to sinus rhythm. He was hypotensive following the procedure with SBP in the 80s mmHg. He was given IVF and phenylephrine by anesthesiology with improvement of BP (93/57 mmHg at time of this note). There was no known complication at the time of this note. Plan: 1. Continue therapeutic anticoagulation without interruption for at least 4 we eks (longer if no contra-indication). 2. Continue amiodarone for now. 3. Atrial flutter ablation is pending with EP. Coding Level of Care Code 29656 CARDIOVERSION, ELECTIVE Additional Codes Electrical Cardioversion Report ([id number])
--- NOTE | 2024-08-10 17:33 | Anesthesiology Progress Note ---
Date of Service August 10, 2024 Anesthesia Post Procedure Vital Signs Vital Signs: Temp Pulse Pulse Resp BP BP Pulse Ox 08/10/24 16:56 117 H 17 100/80 98 08/10/24 15:53 36.3 C L 136 H 18 78/52 L 98 08/10/24 14:00 08/10/24 14:00 146 H 08/10/24 13:43 36.2 C L 143 H 96/66 L 99 08/10/24 13:12 143 H 16 85/66 L 99 08/10/24 12:17 142 H 18 97/75 L 99 08/10/24 12:00 132 H 18 107/83 100 08/10/24 11:40 135 H 20 93/72 L 96 08/10/24 11:30 137 H 20 111/84 98 08/10/24 11:21 138 H 112/86 08/10/24 11:14 141 H 20 103/82 98 08/10/24 11:09 140 H 08/10/24 10:58 36.6 C 144 H 20 62/45 L 99 Pulse Ox O2 Del Method O2 Del Method O2 Flow Rate 08/10/24 16:56 Nasal Cannula 4 08/10/24 15:53 Room Air 08/10/24 14:00 100 Room Air 08/10/24 14:00 08/10/24 13:43 Room Air 08/10/24 13:12 Room Air 08/10/24 12:17 Room Air 08/10/24 12:00 Room Air 08/10/24 11:40 Room Air 08/10/24 11:30 Room Air 08/10/24 11:21 08/10/24 11:14 Room Air 08/10/24 11:09 08/10/24 10:58 Room Air Transfer of Care Handoff Completed per policy Notes Mental Status: alert / awake / arousable and participated in evaluation Patient Amnestic to Procedure: Yes Nausea / Vomiting: adequately controlled Pain: adequately controlled Airway Patency, RR, SpO2: stable & adequate BP & HR: stable & adequate Hydration State: stable & adequate Anesthetic Complications: no major complications apparent and Pt Satisfied with anesthetic care
[2024-08-10 19:14] LABS: Anion Gap 4 (3-11); BUN Creatinine Ratio 23.8 (10-20); Blood Urea Nitrogen 35 mg/dl (6-23); Calcium 9.1 mg/dl (8.6-10.3); Carbon Dioxide 26 mmol/L (21-32); Chloride 108 mmol/L (98-107); Creatinine Clr Calc Pharmacy 54.1 ml/min; Glucose 104 mg/dl (70-99(Fasting)); Potassium 5.4 mmol/L (3.5-5.1); Sodium 138 mmol/L (136-145)
[2024-08-10] MEDS: AMIODARONE / D5W 360 MG/200 ML BAG IV SCH (20:02)
[2024-08-10] MEDS: HYDROCORTISONE SOD 50 MG in SYRINGE 0 ML IV SCH (20:24)
[2024-08-10] MEDS: PATIROMER CALCIUM SORBITEX 8.4 GM PACK PO STA (20:24)
[2024-08-10] MEDS: APIXABAN 5 MG TABLET PO SCH (21:50)
[2024-08-10] MEDS: MAGNESIUM OXIDE 400 MG TAB PO SCH (21:50)
[2024-08-10] MEDS: ATORVASTATIN 20 MG TAB PO SCH (21:50)
[2024-08-10 21:56] LABS: C Reactive Protein < 0.50 mg/dl (0-0.5)
[2024-08-10 23:59] LABS: BUN Creatinine Ratio 23.6 (10-20); Calcium 9.1 mg/dl (8.6-10.3); Creatinine Clr Calc Pharmacy 53.7 ml/min; Potassium 5.6 mmol/L (3.5-5.1)
--- NOTE | 2024-08-11 00:17 | Critical Care Consultation ---
Date of Consultation August 11, 2024 Assessment & Plan (1) Hypotension: (2) Hypomagnesemia: (3) Acute hyperkalemia: (4) Atrial flutter with rapid ventricular response: Plan Reason Critically Ill: 1. Atrial flutter with RVR 2. HFrEF 3. Hyperkalemia 4. Hypovolemia 2/2 GI losses Neuro - [facility] ICU: negative Home Sinemet Cardiac - Cardiology on board Amiodarone infusion protocol Treat electrolyte derangements TTE 2024 mildly reduced LVEF, possibly tachycardia-induced cardiomyopathy Neosynephrine if needed for MAP goal > 65mmHg, has not required thus far Restart BB in AM as hemodynamics tolerate Continue home statin Respiratory - No acute concerns SpO2 goal > 92% HOB 30 IS/Flutter GI - No acute concerns Diet: Advance IRIS, heart healthy SUP: N/A Bowel regimen: Up and moving in AM, Miralax PRN RENAL/LYTES - Received dose of Veltassa. Will add Lokelma QD Replete electrolytes as indicated No current indication for simms catheter Gentle hydration provided periprocedurally Maintain net even to net negative ENDO - BG 140-180 per SCCM guidelines ISS if needed while inpatient Cortisol quite low, added glucocorticoid replacement in form of hydrocortisone and fludrocortisone. Patient did have significant hypotension on standing which improved with laying down which could indicate ongoing adrenal insufficiency HEME - No acute concerns ID - Procalcitonin negative, no obvious infectious source LINES/TUBES/DRAINS - PIV x2 DVT PROPHYLAXIS - Home Eliquis DISPOSITION - Likely stable for downgrade in AM, ICU status overnight I have personally spent 30 minutes of critical care time in the direct management of this patient. This is a life/limb threatening event. This includes time spent evaluating patient, direct bedside care, chart review, placing orders, interpretation of diagnostic studies, discussion with consultants, patient, and family members, as well as other required patient management activities. This time is exclusive of all separately billable procedures, and teaching time and separate from and in addition to any other critical care service time. Thank you for allowing us to participate in the care of this patient. Please refer to my attending physician's documentation for any further recommendations. Supervising Physician Co-Signing Physician Notes Patient seen and examined. EMR reviewed. He discussed with hospitalist as well as with critical care MARLO overnight. Agree with assessment plan as noted. History of Present Illness Reason for Consultation: Post-cardioversion monitoring Requesting Physician: Ashtyn Attending Physician: Kris Chamorro MD History of Present Illness Mr. Shane Wilson is a pleasant 68YOM with a history of atrial flutter, hypertension, LUIS DANIEL, Parkinsonism, HFrEF (40-45% 2024), and spinal stenosis who presented to [facility] ED the morning of 08/10/2024 due to tachycardia. Found to be in atrial flutter with rapid ventricular response. Hypotensive. Ultimately admitted by Hospitalist. Underwent DC Cardioversion 50J with conversion to sinus rhythm. BP improved without need for vasopressors. Amiodarone infusing. K 6.0. Mg 1.5. ICU is consulted for close monitoring post-procedure. Patient seen in ICU 103. He is AAOx3. Pleasant and conversant. Has no current complaints. MAP 75-80. HR controlled, sinus with rates 60-80s. 10 point ROS is negative. Allergies Allergy/AdvReac Type Severity Reaction Status Date / Time No Known Allergies Allergy Verified 08/10/24 12:17 Home Medications Medication Instructions Recorded Confirmed Type multivitamin 1 tab PO QAM 01/04/19 08/10/24 History atorvastatin 20 mg tablet 20 mg PO QPM #90 tabs 09/09/23 08/10/24 Rx magnesium oxide 400 mg (241.3 mg 400 mg PO TID #270 tabs 10/16/23 08/10/24 Rx magnesium) tablet sitagliptin phosphate 50 1 tab PO BID 90 days #180 tabs 01/07/24 08/10/24 Rx mg-metformin 1,000 mg tablet amiloride 5 mg tablet 5 mg PO QAM 06/28/24 08/10/24 History carbidopa 25 mg-levodopa 100 mg 1 tab PO UD 06/28/24 08/10/24 History tablet metoprolol succinate 50 mg 50 mg PO DAILY #30 tabs 06/30/24 08/10/24 Rx tablet,extended release 24 hr alfuzosin 10 mg tablet,extended 10 mg PO QAM 07/06/24 08/10/24 History release 24 hr apixaban 5 mg tablet (Eliquis) 5 mg PO BID #60 tabs 08/04/24 08/10/24 Rx Patient History Medical History Hearing loss Obesity Surgical History History of lithotripsy WITH CYSTOSCOPY/STENT History of non-cataract eye surgery History of cataract surgery History of back surgery 2 total Hx of colonoscopy History of partial knee replacement LEFT History of lumbar fusion L2-L5 History of gastric surgery For pyloric stenosis Family History Father Coronary heart disease Myocardial infarction Diabetes Heart disease Sister Family history of gallbladder disease Diabetes Other Family history of kidney stones Denies family history of Ovarian cancer Prostate cancer Breast cancer Lung cancer Colorectal cancer Social History Smoking Status: Never smoker Second Hand Exposure: Yes (WHEN HE WAS WORKING); Do You Dip or Chew Tobacco: No; Hx Alcohol Use: No Hx Substance Use: No Preferred Language: Pashto Communication Ability: Effective Visual Impairment: No Limitations Hearing Ability: Normal Physical Director Required: No Beliefs That Will Affect Care: None marital status: Current Living Situation: Spouse Current Living Situation Comment: Home with spouse 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 How many Children do You have: 0 Other Information That Helps Us Care for You: No Feels Safe at Home: Yes Safety Concerns: Feels Safe At This Time Childhood Exposure to Second-Hand Smoke: No Diet: regular Diet Comment: regular caffeine: Yes during the past year weight has: remained stable Dental Care, Regularly: Yes Physical Activity Frequency: Other Seatbelt Use: sometimes Sunscreen Use: No Assistive Devices: Hearing Aid - Bilateral Review of Systems Review of Systems: All systems reviewed & are unremarkable except as noted in Subjective Physical Exam Constitutional: WD/WN, vitals as above Eyes: PERRL, conjunctivae normal, anicteric sclerae Neck: trachea midline, no thyromegaly Respiratory: normal respiratory effort, lungs clear to auscultation Cardiovascular: RRR, no murmur, no edema Gastrointestinal (Abdomen): normal bowel sounds, soft, nontender, no hepatosplenomegaly Skin: no rashes, warm and dry Neurologic: PERRL, EOMI, accommodation nl, no face palsy, no dysarthria Genitourinary: Deferred Results & Data Results & Data Vital Signs (Past 12 Hours) Vital Signs Temp Pulse Pulse Resp BP BP Pulse Ox 04/09/25 23:30 68 19 108/64 96 08/10/24 22:30 69 12 114/68 98 08/10/24 22:00 86 16 110/67 99 08/10/24 21:31 61 12 112/63 08/10/24 21:00 69 13 110/66 98 08/10/24 20:00 71 16 105/62 99 08/10/24 19:31 72 13 100/67 97 08/10/24 19:00 36.8 C 73 14 97/62 L 100 08/10/24 18:00 74 08/10/24 17:39 72 14 100 08/10/24 17:38 88/56 L 08/10/24 17:36 72 15 99 08/10/24 17:34 92/58 L 08/10/24 17:33 73 12 100 08/10/24 17:32 90/60 L 08/10/24 17:30 95/57 L 08/10/24 17:24 73 16 98 08/10/24 17:22 90/57 L 08/10/24 17:21 72 16 100 08/10/24 17:20 88/63 L 08/10/24 17:18 89/58 L 08/10/24 17:16 91/56 L 08/10/24 17:12 71 16 93/57 L 100 08/10/24 17:11 72 23 84/57 L 100 08/10/24 17:06 73 17 80/53 L 100 08/10/24 17:01 72 19 83/52 L 99 08/10/24 16:58 74 10 L 93/52 L 97 08/10/24 16:57 73 17 08/10/24 16:56 117 H 17 100/80 98 08/10/24 16:56 117 H 17 100/80 98 08/10/24 16:54 135 H 20 120/84 100 08/10/24 15:53 36.3 C L 136 H 18 78/52 L 98 08/10/24 14:00 08/10/24 14:00 146 H 08/10/24 13:43 36.2 C L 143 H 96/66 L 99 08/10/24 13:12 143 H 16 85/66 L 99 08/10/24 12:17 142 H 18 97/75 L 99 Pulse Ox O2 Del Method O2 Del Method O2 Flow Rate 08/10/24 23:30 08/10/24 22:30 08/10/24 22:00 08/10/24 21:31 08/10/24 21:00 08/10/24 20:00 08/10/24 19:31 08/10/24 19:00 08/10/24 18:00 08/10/24 17:39 08/10/24 17:38 08/10/24 17:36 08/10/24 17:34 08/10/24 17:33 08/10/24 17:32 08/10/24 17:30 08/10/24 17:24 08/10/24 17:22 08/10/24 17:21 08/10/24 17:20 08/10/24 17:18 08/10/24 17:16 08/10/24 17:12 Room Air 08/10/24 17:11 Room Air 08/10/24 17:06 Nasal Cannula 4 08/10/24 17:01 Nasal Cannula 4 08/10/24 16:58 Nasal Cannula 4 08/10/24 16:57 08/10/24 16:56 Nasal Cannula 4 08/10/24 16:56 Nasal Cannula 4 08/10/24 16:54 Nasal Cannula 4 08/10/24 15:53 Room Air 08/10/24 14:00 100 Room Air 08/10/24 14:00 08/10/24 13:43 Room Air 08/10/24 13:12 Room Air 08/10/24 12:17 Room Air Laboratory Results Reviewed Diagnostic Findings Reviewed Medications Administered See MAR Coding Level of Care Code 38144 INT INP/OBS CARE 1/40MIN Diagnoses Hypotension I95.9 Hypomagnesemia E83.42 Acute hyperkalemia E87.5 Atrial flutter with rapid ventricular response I48.92 Time Spent (min) 30
[2024-08-11] MEDS: PHENYLEPHRINE/NSS 25 MG/250 ML BAG IV SCH (01:48)
[2024-08-11 04:56] LABS: Basophils # (auto) 0.01 K/uL (0.00-0.20); Basophils % (auto) 0.1 %; Eosinophils # (auto) 0.02 K/uL (0.00-0.50); Eosinophils % (auto) 0.2 %; Hematocrit (blood only) 35.2 % (42.0-52.0); Hemoglobin 11.4 g/dl (14.0-18.0); Immature Granulocytes # (auto) 0.04 K/uL (0.01-0.20); Immature Granulocytes % (auto) 0.5 %; Lymphocytes % (auto) 11.6 %; Mean Corpuscular Hemoglobin 28.9 pg (25.0-34.0); Mean Corpuscular Hgb Conc 32.4 g/dL (32.0-36.0); Mean Corpuscular Volume 89.1 fL (80.0-100.0); Monocytes # (auto) 0.31 K/uL (0.11-0.59); Monocytes % (auto) 3.6 %; Neutrophils # (auto) 7.25 K/uL (1.40-6.50); Platelet Count 144 K/uL (130-400); RDW Coefficient of Variation 13.9 % (11.5-14.5); RDW Standard Deviation 44.9 fL (36.4-46.3); Red Blood Count 3.95 M/uL (4.70-6.10); White Blood Count 8.63 K/ul (4.8-10.8)
[2024-08-11 05:08] LABS: BUN Creatinine Ratio 23.2 (10-20); Creatinine Clr Calc Pharmacy 51.3 ml/min; Magnesium 1.8 mg/dl (1.7-2.4); Phosphorus 4.2 mg/dl (2.5-4.9)
[2024-08-11] MEDS: CALCIUM GLUCONATE 1,000 MG/60 ML BAG IV STA (06:03)
--- NOTE | 2024-08-11 06:08 | Electrocardiogram Report ---
Test Reason : Blood Pressure : */* mmHG Vent. Rate : 140 BPM Atrial Rate : 280 BPM P-R Int : * ms QRS Dur : 86 ms QT Int : 262 ms P-R-T Axes : 267 -15 0 degrees QTcB Int : 399 ms Atrial flutter with 2:1 A-V conduction Abnormal ECG When compared with ECG of 29-Jun-2024 06:23, Vent. rate has increased by 71 bpm Confirmed by Franki Guzman ([id number]) on 08/11/2024 6:08:17 AM Referred By: Confirmed By: Franki Guzman
[2024-08-11] MEDS: DEXTROSE 50% 50 ML SYRINGE IV STA (06:24)
[2024-08-11] MEDS: INSULIN HUMAN REGULAR PER UNIT 10 UNITS in SYRINGE 9.9 ML IV STA (06:24)
[2024-08-11] MEDS: SODIUM ZIRCONIUM CYCLOSILICATE 10 GM PACKET PO SCH (07:48)
[2024-08-11] MEDS: METOPROLOL SUCC 50MG EXT REL TAB PO SCH (07:48)
--- NOTE | 2024-08-11 07:52 | XCELERA ---
[id number] \\[id number]
[2024-08-11] MEDS: FLUDROCORTISONE ACETATE 0.1 MG TAB PO SCH (09:14)
--- NOTE | 2024-08-11 09:14 | Cardiology Progress Note ---
Date of Service August 11, 2024 Assessment & Plan (1) Atrial flutter with rapid ventricular response: (2) Cardiomyopathy: (3) Hypotension: Plan ASSESSMENT/PLAN: 1. Atrial flutter: Paroxysmal/recurrent. Due to ongoing hypotension, decision was made to proceed with urgent DC cardioversion on 08/10/2024. He remains in sinus rhythm. Continue amiodarone and can transition to oral amiodarone today, unless EP has further recommendations. Will discuss with Dr. Meza, his elec trophysiologist. Atrial flutter ablation is pending in the future, awaiting to be scheduled. Continue anticoagulation for stroke risk reduction, without interruption. Monitor CBC and renal function. 2. Hypotension: Initially, concerned that atrial flutter was contributing to hypotension. While he was hospitalized in June, he was not significantly hypotensive despite atrial flutter. He remained hypotensive, although somewhat improved following cardioversion to sinus rhythm. He has since received hydrocortisone for concern of adrenal insufficiency. As per hospitalist service. Blood pressure has improved. 3. Cardiomyopathy: Mildly reduced LV systolic function previously while in atrial flutter. LV systolic function normal today on limited echo. Reduced LV systolic function was likely tachycardia induced. He has not appeared hypervolemic. Continue metoprolol succinate if blood pressure allows. 4. Disposition: No further inpatient cardiology treatment necessary at this time. Can be discharged home from a cardiology perspective. Awaiting scheduling for atrial flutter ablation with Dr. Meza. Patient care discussed with Dr. Melara of the primary hospitalist service. Please call with any further questions or concerns. Admission and Anticipated Discharge Date Admission Date: August 10, 2024 Subjective Patient seen this morning with his at the bedside. He is feeling better overall. He denies chest pain, shortness of breath, syncope, near syncope, palpitations, edema, or bleeding. Blood pressure has improved. He inquired about ablation. Physical Exam Physical Exam: Gen.: No acute distress. Alert. HEENT: Anicteric sclera. Neck: No JVD. Cardiac: Regular. Normal rate. Normal S1-S2. No murmurs, rubs, or gallops. Pulmonary: Clear to auscultation bilaterally without wheezes, rales, or rhonchi. Abdomen: Soft, nontender, nondistended, with normoactive bowel sounds. No bruits noted. Extremities: 2+ radial pulses bilaterally. 2+ posterior tibialis pulses bilaterally. No pitting edema or cyanosis. Results & Data Vital Signs (Past 12 Hours) Vital Signs Temp Pulse Resp BP Pulse Ox 08/11/24 07:30 126/67 08/11/24 07:21 74 12 96 08/11/24 07:18 68 13 96 08/11/24 07:00 68 14 97 08/11/24 07:00 124/68 08/11/24 06:45 69 14 98 08/11/24 06:33 74 14 98 08/11/24 06:30 73 15 136/75 99 08/11/24 06:00 89 13 95 08/11/24 05:30 68 12 134/78 99 08/11/24 05:00 67 16 123/78 98 08/11/24 04:30 67 1 L 113/63 98 08/11/24 04:00 67 13 97/68 L 08/11/24 03:30 69 17 112/68 100 08/11/24 03:00 69 13 98/61 L 97 08/11/24 02:01 108 H 17 101/67 98 08/11/24 01:00 69 12 96/68 L 98 08/11/24 00:30 69 16 92/68 L 97 08/11/24 00:00 69 08/11/24 00:00 36.7 C 121 H 19 116/67 99 08/10/24 23:30 68 19 108/64 96 08/10/24 22:30 69 12 114/68 98 08/10/24 22:00 86 16 110/67 99 08/10/24 21:31 61 12 112/63 Laboratory Results Laboratory Results - last 24 hr 08/10/24 08/10/24 08/10/24 11:10 11:14 11:30 WBC 8.79 RBC 4.63 L Hgb 13.2 L POC Hgb 13.6 L Hct 41.3 L POC Hct 40 L MCV 89.2 MCH 28.5 MCHC 32.0 RDW Std Deviation 43.9 RDW Coeff of Keke 13.5 Plt Count 167 MPV 10.8 Immature Gran % (Auto) 0.2 Neut % (Auto) 77.4 Lymph % (Auto) 15.4 Caswell % (Auto) 6.3 Eos % (Auto) 0.6 Baso % (Auto) 0.1 Neut # (Auto) 6.81 H Lymph # (Auto) 1.35 Caswell # (Auto) 0.55 Eos # (Auto) 0.05 Baso # (Auto) 0.01 Immature Gran # (Auto) 0.02 PT 12.1 H INR 1.1 APTT 26 PTT Ratio 1.0 POC Sodium 139 Sodium 137 POC Potassium 5.8 H Potassium 6.0 H POC Chloride 106 Chloride 105 Carbon Dioxide 26 POC Total CO2 23 L Anion Gap 6 POC Anion Gap 17.0 POC BUN 34 H BUN 33 H Creatinine 1.58 H POC Creatinine 1.7 H Est Cr Clr Drug Dosing 50.3 eGFR 46.76 BUN/Creatinine Ratio 20.9 H Glucose 144 H POC Glucose (other) 142 H Lactate Calcium 9.9 POC Ioniz Calcium Shanique 1.24 Phosphorus Magnesium 1.5 L Total Bilirubin 0.6 AST 23 ALT 4 L Alkaline Phosphatase 69 Troponin I High Sens 9.9 C-Reactive Protein Total Protein 7.1 Albumin 4.3 Globulin 2.8 Albumin/Globulin Ratio 1.5 Procalcitonin TSH 4.627 H Free T4 0.80 Random Cortisol Urine Color Urine Appearance Urine pH Ur Specific [place] Urine Protein Urine Glucose (UA) Urine Ketones Urine Blood Urine Nitrite Urine Bilirubin Urine Urobilinogen Ur Leukocyte Esterase Nasal Screen MRSA (PCR) SARS-CoV-2, RNA, NAAT NEGATIVE 08/10/24 08/10/24 08/10/24 13:01 14:34 18:28 WBC RBC Hgb POC Hgb Hct POC Hct MCV MCH MCHC RDW Std Deviation RDW Coeff of Keke Plt Count MPV Immature Gran % (Auto) Neut % (Auto) Lymph % (Auto) [place] % (Auto) Eos % (Auto) Baso % (Auto) Neut # (Auto) Lymph # (Auto) [place] # (Auto) Eos # (Auto) Baso # (Auto) Immature Gran # (Auto) PT INR APTT PTT Ratio POC Sodium Sodium 139 138 POC Potassium Potassium 4.6 D 5.4 H POC Chloride Chloride 107 108 H Carbon Dioxide 25 26 POC Total CO2 Anion Gap 7 4 POC Anion Gap POC BUN BUN 35 H 35 H Creatinine 1.52 H 1.47 H POC Creatinine Est Cr Clr Drug Dosing 52.3 54.1 eGFR 48.99 51.00 BUN/Creatinine Ratio 23.0 H 23.8 H Glucose 77 104 H POC Glucose (other) Lactate 1.0 Calcium 9.6 9.1 POC Ioniz Calcium Shan[place] Phosphorus Magnesium Total Bilirubin AST ALT Alkaline Phosphatase Troponin I High Sens C-Reactive Protein < 0.50 Total Protein Albumin Globulin Albumin/Globulin Ratio Procalcitonin < 0.02 TSH Free T4 Random Cortisol 5.53 Urine Color Yellow Urine Appearance Clear Urine pH >= 9.0 H Ur Specific [place] 1.018 Urine Protein Negative Urine Glucose (UA) Negative Urine Ketones Negative Urine Blood Negative Urine Nitrite Negative Urine Bilirubin Negative Urine Urobilinogen Negative Ur Leukocyte Esterase Negative Nasal Screen MRSA (PCR) SARS-CoV-2, RNA, NAAT 08/10/24 08/10/24 08/11/24 18:33 22:43 04:38 WBC 8.63 RBC 3.95 L Hgb 11.4 L POC Hgb Hct 35.2 L POC Hct MCV 89.1 MCH 28.9 MCHC 32.4 RDW Std Deviation 44.9 RDW Coeff of Keke 13.9 Plt Count 144 MPV 11.0 Immature Gran % (Auto) 0.5 Neut % (Auto) 84.0 Lymph % (Auto) 11.6 [place] % (Auto) 3.6 Eos % (Auto) 0.2 Baso % (Auto) 0.1 Neut # (Auto) 7.25 H Lymph # (Auto) 1.00 L [place] # (Auto) 0.31 Eos # (Auto) 0.02 Baso # (Auto) 0.01 Immature Gran # (Auto) 0.04 PT INR APTT PTT Ratio POC Sodium Sodium 136 135 L POC Potassium Potassium 5.6 H 6.0 H POC Chloride Chloride 106 106 Carbon Dioxide 24 23 POC Total CO2 Anion Gap 6 6 POC Anion Gap POC BUN BUN 35 H 36 H Creatinine 1.48 H 1.55 H POC Creatinine Est Cr Clr Drug Dosing 53.7 51.3 eGFR 50.58 47.85 BUN/Creatinine Ratio 23.6 H 23.2 H Glucose 114 H 136 H POC Glucose (other) Lactate Calcium 9.1 9.0 POC Ioniz Calcium [place] Phosphorus 4.2 Magnesium 1.8 Total Bilirubin AST ALT Alkaline Phosphatase Troponin I High Sens C-Reactive Protein Total Protein Albumin Globulin Albumin/Globulin Ratio Procalcitonin TSH Free T4 Random Cortisol Urine Color Urine Appearance Urine pH Ur Specific [place] Urine Protein Urine Glucose (UA) Urine Ketones Urine Blood Urine Nitrite Urine Bilirubin Urine Urobilinogen Ur Leukocyte Esterase Nasal Screen MRSA (PCR) Negative SARS-CoV-2, RNA, NAAT Diagnostic Findings Labs reviewed and notable for abnormal but stable renal function, hyperkalemia, mild anemia. ECG personally reviewed 08/11/2024 at 5:37 AM: Sinus rhythm. 74 bpm. Limited echo report reviewed from 08/11/2024: LV systolic function normal. EF 55-60%. Mild hypokinesis of the inferolateral wall. Mild LVH. Medications Administered Current Inpatient Medications Acetaminophen (Acetaminophen 325 Mg Tab) 650 mg PO Q4H PRN PRN Reason: Pain or Fever Stop: 09/09/24 13:59 Apixaban (Apixaban 5 Mg Tablet) 5 mg PO BID LIZA Stop: 09/09/24 20:59 Last Admin: 08/11/24 07:48 Dose: 5 mg Atorvastatin Calcium (Atorvastatin 20 Mg Tab) 20 mg PO QPM LIZA Stop: 09/09/24 20:59 Last Admin: 08/10/24 21:50 Dose: 20 mg Carbidopa/Levodopa (Carbidopa/Levodopa 25/100mg Tab) 1 tab PO 0600,1000,1400,1800,2200 LIZA Stop: 09/09/24 13:59 Last Admin: 08/11/24 06:25 Dose: 1 tab Fludrocortisone Acetate (Fludrocortisone Acetate 0.1 Mg Tab) 0.1 mg PO QAM LIZA Stop: 09/10/24 08:59 Amiodarone HCl/Dextrose (Nexterone / D5w) 360 mg in 200 mls @ 16.667 mls/hr IV .Q12H LIZA Stop: 09/09/24 19:14 Last Admin: 08/11/24 06:37 Dose: 0.5 mg/min, 16.7 mls/hr Hydrocortisone Sodium (Succinate 50 mg/ Syringe) 1 mls @ 4 mls/min IV Q6H LIZA Stop: 09/09/24 19:44 Last Admin: 08/11/24 07:47 Dose: 4 mls/min Magnesium Oxide (Magnesium Oxide 400 Mg Tab) 400 mg PO TID LIZA Stop: 09/09/24 20:59 Last Admin: 08/11/24 07:49 Dose: 400 mg Metoprolol Succinate (Metoprolol Succ 50mg Ext Rel Tab) 50 mg PO DAILY LIZA Stop: 09/10/24 08:59 Last Admin: 08/11/24 07:48 Dose: 50 mg Sodium Zirconium Cyclosilicate (Sodium Zirconium Cyclosilicate 10 Gm Packet) 10 gm PO TID LIZA Stop: 09/10/24 08:59 Last Admin: 08/11/24 07:48 Dose: 10 gm PG Care Time/CCT Total # of Minutes Spent Total Time Spent with Patient: Total time spent is greater than 50% in coordination of care (as documented) at patient's floor/unit and/or counseling patient: Coding Level of Care Code 35688 SUB INP/OBS CARE 3/50MIN Diagnoses Atrial flutter with rapid ventricular response I48.92 Cardiomyopathy I42.9 Hypotension I95.9
[2024-08-11] MEDS ORDERED: SODIUM ZIRCONIUM CYCLOSILICATE 10 GM PACKET PO SCH (11:00)
[2024-08-11 11:03] LABS: BUN Creatinine Ratio 20.1 (10-20); Calcium 9.4 mg/dl (8.6-10.3); Creatinine Clr Calc Pharmacy 50.5 ml/min; Potassium 5.3 mmol/L (3.5-5.1)
--- NOTE | 2024-08-11 11:05 | Hospitalist Progress Note ---
Date of Service August 11, 2024 Assessment & Plan (1) Atrial flutter with rapid ventricular response: (2) Hypotension: (3) Hyperkalemia: (4) Hypomagnesemia: Plan This patient is a 68-year-old male with PMH of paroxysmal atrial flutter on ELiquis, PD, HFmrEF, HLD, BPH, HTN, DMII, and spinal stenosis who presented on 08/10 for rapid atrial flutter and hypotension in the 60s systolic. #Atrial flutter with RVR/hypotension/Cardiogenic shock due to presenting atrial flutter with RVR-Initially, BP 62/45 on arrival with standing- improved to 103/62 without intervention while laying in bed-orthostasis. Attempts at rate control with IV Lopressor and IVFs were unsuccessful and pt had urgent electric cardioversion under sedation in ICU after admission. With hypotension, had workup for sepsis which was normal, BCxs pending but no fevers or other signs/symptoms of infection. Random cortisol drawn at approx 1800 at 5, but this is still within normal range for evening and he was not in a stressed state-do not suspect adrenal insufficiency. He was given IV hydrocortisone and po fludrocortisone in ICU and BPs became hypertensive. Started on amiodarone gtt on admission. Cardiology consult appreciated ECHO here now with preserved EF (improved from previous) -change IV amiodarone back to po -continue home Toprol XL 50mg daily -discontinue po hydrocortisone and fludrocortisone -continue to monitor on tele -plan for outpatient atrial flutter ablation-being arranged by Dr. Meza -continue Eliquis -follow CBC, BMP, magnesium and keep lytes optimal/replete-has a h/o magnesium wasting -check daily orthostatic vitals--> recommend FRANK hose or waist high compression- cannot stop Sinemet or alfuzosin as would cause too many problems #Hyperkalemia/ELIZABETH-K 6.0 on arrival, EKG on arrival with peaked T waves. Locker Operator has been elevated at 1.5-1.7 for the last month since previous admission for ALEISHA and previously 1.2-1.3. Hyperkalemia treated w/ Calcium gluconate 1000 mg IV x 2, Regular insulin 10 units IV + dextrose on two occasions, and given Veltassa and now Lokelma. K+ now down to normal. Could be 2/2 amiloride and recent ELIZABETH since 06/2024 admission for hypotension and ALEISHA. Discussed his care with his Camera Mechanic. -check Renal US -discontinue amiloride -give 500mL NS now -follow BMP in AM -low K+ diet #Hypomagnesemia-Mag 1.5 on arrival. 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 Mag replaced IV and po and now normal Continue p.o. magnesium supplement but increase to QID Recheck a.m. mag #Parkinson's disease-follows with [facility]. Recently trialed on Entacapone but caused hallucinations so he stopped. Orthostasis likely from Sinemet and alfuzosin -Continue carbidopalevodopa x5 per day -f/u with Neuro as outpt #HLD-Continue statin #BPH -Held alfuzosin d/t hypotension, but can resume Disposition: continued stay but downgrade from ICU to PCU telemetry VTE PPx: Continue Eliquis Admission and Anticipated Discharge Date Admission Date: August 10, 2024 Subjective Pt feeling much better today. No lightheadedness, no CP or SOB. Says his only symptom with the low BPs at home was a headache with standing up. He noticed his BP was in the 70s systolic and HR in the 140s at home for several days. He called the [place] phone line and left messages and finally got through to a RN at [facility] Cardiology office on the day of admission who advised him to go to the ED. He did continue to take all his usual medications including amiloride, metoprolol for the days prior to admission. I discussed his care with both Dr. Guzman and Dr. Meza of Cardiology as well as with his primary Camera Mechanic as an outpt, Dr. Turner. Tele with NSR normal rates Physical Exam Constitutional: WD/WN, vitals as above Respiratory: normal respiratory effort, lungs clear to auscultation Cardiovascular: RRR, no murmur, no edema Gastrointestinal (Abdomen): normal bowel sounds, soft, nontender, no hepatosplenomegaly Neurologic: awake; no focal motor deficits and not confused Motor/Sensory: + tremor (resting tremor RUE) Psychiatric: A+Ox3, euthymic affect Results & Data Results & Data Vital Signs (Past 12 Hours) Vital Signs Temp Pulse Resp BP Pulse Ox O2 Del Method 08/11/24 09:00 66 14 98 08/11/24 08:30 131/97 08/11/24 08:30 65 16 97 08/11/24 08:18 66 14 98 08/11/24 08:01 131/102 H 08/11/24 07:45 Room Air 08/11/24 07:30 126/67 08/11/24 07:21 74 12 96 08/11/24 07:18 68 13 96 08/11/24 07:00 68 14 97 08/11/24 07:00 124/68 08/11/24 06:45 69 14 98 08/11/24 06:33 74 14 98 08/11/24 06:30 73 15 136/75 99 08/11/24 06:00 89 13 95 08/11/24 05:30 68 12 134/78 99 08/11/24 05:00 67 16 123/78 98 08/11/24 04:30 67 1 L 113/63 98 08/11/24 04:00 67 13 97/68 L 08/11/24 03:30 69 17 112/68 100 08/11/24 03:00 69 13 98/61 L 97 08/11/24 02:01 108 H 17 101/67 98 08/11/24 01:00 69 12 96/68 L 98 08/11/24 00:30 69 16 92/68 L 97 08/11/24 00:00 69 08/11/24 00:00 36.7 C 121 H 19 116/67 99 08/10/24 23:30 68 19 108/64 96 Laboratory Results CBC, BMP x 2, blood cxs reviewed PG Care Time/CCT Total # of Minutes Spent Total Time Spent with Patient: Total time spent is greater than 50% in coordination of care (as documented) at patient's floor/unit and/or counseling patient: Coding Level of Care Code 66908 SUB INP/OBS CARE 3/50MIN Diagnoses Atrial flutter with rapid ventricular response I48.92 Hypotension I95.9 Hyperkalemia E87.5 Hypomagnesemia E83.42
[2024-08-11] MEDS: MAGNESIUM OXIDE 400 MG TAB PO SCH (13:11)
--- NOTE | 2024-08-11 15:23 | Critical Care Progress Note ---
Date of Service August 11, 2024 Assessment & Plan (1) Hypotension: (2) Hypomagnesemia: (3) Acute hyperkalemia: (4) Atrial flutter with rapid ventricular response: Plan Reason Critically Ill: 1. Atrial flutter with RVR 2. HFrEF 3. Hyperkalemia 4. Hypovolemia 2/2 GI losses Neuro - [facility] ICU: negative Home Sinemet Cardiac - Cardiology on board Amiodarone infusion protocol Treat electrolyte derangements TTE 2024 mildly reduced LVEF, possibly tachycardia-induced cardiomyopathy Neosynephrine if needed for MAP goal > 65mmHg, has not required thus far Restart BB in AM as hemodynamics tolerate Continue home statin Respiratory - No acute concerns SpO2 goal > 92% HOB 30 IS/Flutter GI - No acute concerns Diet: Advance RIIS, heart healthy SUP: N/A Bowel regimen: Up and moving in AM, Miralax PRN RENAL/LYTES - Received dose of Veltassa. Will add Lokelma QD Replete electrolytes as indicated No current indication for simms catheter Gentle hydration provided periprocedurally Maintain net even to net negative ENDO - BG 140-180 per SCCM guidelines ISS if needed while inpatient Cortisol quite low, added glucocorticoid replacement in form of hydrocortisone and fludrocortisone. Hypotension resolved. Will taper down steroids. HEME - No acute concerns ID - Procalcitonin negative, no obvious infectious source LINES/TUBES/DRAINS - PIV x2 DVT PROPHYLAXIS - Home Eliquis DISPOSITION - Likely stable for downgrade in AM, ICU status overnight Thank you for allowing us participate in the care of this pleasant patient. Patient stable for downgrade from the ICU at this time. Admission and Anticipated Discharge Date Admission Date: August 10, 2024 Supervising Physician Co-Signing Physician Notes Patient seen and examined. EMR reviewed. Discussed on multidisciplinary rounds. Agree with assessment plan as noted. Patient's blood pressure issues have resolved. He is hemodynamically stable. Critical care signing off. Feel free to contact us with questions or concerns Subjective Patient seen and evaluated bedside. He had an uneventful night. He offers no complaints at this time. Review of Systems Review of Systems: Per subjective Physical Exam Constitutional: WD/WN, vitals as above Eyes: PERRL, conjunctivae normal, anicteric sclerae Neck: trachea midline, no thyromegaly Respiratory: normal respiratory effort, lungs clear to auscultation Cardiovascular: RRR, no murmur, no edema Gastrointestinal (Abdomen): normal bowel sounds, soft, nontender, no hepatosplenomegaly Skin: no rashes, warm and dry Neurologic: PERRL, EOMI, accommodation nl, no face palsy, no dysarthria Genitourinary: Deferred Results & Data Results & Data Vital Signs (Past 12 Hours) Vital Signs Pulse Resp BP Pulse Ox O2 Del Method 08/11/24 13:00 147/84 H 08/11/24 12:51 72 12 96 08/11/24 12:15 73 12 95 08/11/24 12:00 145/74 H 08/11/24 11:57 74 20 96 08/11/24 11:30 153/85 H 08/11/24 11:30 76 13 100 08/11/24 11:03 72 15 98 08/11/24 11:01 159/87 H 08/11/24 11:00 73 15 99 08/11/24 10:36 64 19 99 08/11/24 10:31 158/91 H 08/11/24 10:27 68 8 L 100 08/11/24 10:03 64 17 99 08/11/24 10:00 148/83 H 08/11/24 09:24 63 14 98 08/11/24 09:00 66 14 98 08/11/24 08:30 131/97 08/11/24 08:30 65 16 97 08/11/24 08:18 66 14 98 08/11/24 08:01 131/102 H 08/11/24 07:45 Room Air 08/11/24 07:30 126/67 08/11/24 07:21 74 12 96 08/11/24 07:18 68 13 96 08/11/24 07:00 68 14 97 08/11/24 07:00 124/68 08/11/24 06:45 69 14 98 08/11/24 06:33 74 14 98 08/11/24 06:30 73 15 136/75 99 08/11/24 06:00 89 13 95 08/11/24 05:30 68 12 134/78 99 08/11/24 05:00 67 16 123/78 98 08/11/24 04:30 67 1 L 113/63 98 08/11/24 04:00 67 13 97/68 L 08/11/24 03:30 69 17 112/68 100 Coding Level of Care Code 28086 SUB INP/OBS CARE 05/28MIN Diagnoses Hypotension I95.9 Hypomagnesemia E83.42 Acute hyperkalemia E87.5 Atrial flutter with rapid ventricular response I48.92
[2024-08-11 15:40] LABS: BUN Creatinine Ratio 20.5 (10-20); Potassium 4.8 mmol/L (3.5-5.1)
--- NOTE | 2024-08-11 16:12 | Ultrasound Report ---
EXAM: US Retroperitoneal Limited Renal INDICATION: Acute kidney insufficiency. Hyperkalemia. TECHNIQUE: Real-time limited ultrasound of the retroperitoneum with image documentation. COMPARISON: No relevant prior studies available. FINDINGS: Right kidney: 10.1 cm long. Cortical thickness and echotexture maintained. No stones. No solid mass. Simple 1.3 cm cyst. No further assessment required. No hydronephrosis. Left kidney: 10.0 cm long. Cortical thickness and echotexture maintained. No stones. No solid mass. No hydronephrosis. Question trace perinephric fluid. Bladder: Moderately distended. Ureteral jets seen bilaterally. Prostate: Enlarged particularly the median lobe with approximate measurement of the calcified prostate measuring 4.8 x 4.1 x 4.4 cm. IMPRESSION: 1. No significant sonographic abnormality of either kidney. 2. Question trace left perinephric fluid. 3. Calcified prostate with prominent lobulated median lobe indenting the bladder. Correlate clinically. ACT 112: Positive. There are findings on this exam that require communication between the performing entity and the patient following Patient Test Result Information Act ([place] ACT 112) guidelines. Electronically signed by Teresa Reyez 08-11-2024 4:12 PM
[2024-08-11] MEDS: SODIUM CHLORIDE 0.9% 500 ML IV SCH (17:36)
[2024-08-11] MEDS: AMIODARONE 200 MG TAB PO SCH (18:37)
[2024-08-11] MEDS: HYDROCORTISONE 10 MG TAB PO SCH (21:47)
--- NOTE | 2024-08-11 22:49 | Electrocardiogram Report ---
Test Reason : Blood Pressure : */* mmHG Vent. Rate : 74 BPM Atrial Rate : 74 BPM P-R Int : 194 ms QRS Dur : 92 ms QT Int : 420 ms P-R-T Axes : 75 4 34 degrees QTcB Int : 466 ms Normal sinus rhythm Normal ECG When compared with ECG of 10-Aug-2024 11:07, Sinus rhythm has replaced Atrial flutter Vent. rate has decreased by 66 bpm Confirmed by Franki Guzman ([id number]) on 08/11/2024 10:49:45 PM Referred By: Leighton Meza Confirmed By: Franki Guzman
[2024-08-12 05:52] LABS: Basophils # (auto) 0.01 K/uL (0.00-0.20); Basophils % (auto) 0.1 %; Eosinophils # (auto) 0.03 K/uL (0.00-0.50); Eosinophils % (auto) 0.3 %; Hematocrit (blood only) 36.2 % (42.0-52.0); Hemoglobin 12.2 g/dl (14.0-18.0); Immature Granulocytes # (auto) 0.06 K/uL (0.01-0.20); Immature Granulocytes % (auto) 0.5 %; Lymphocytes % (auto) 9.8 %; Mean Corpuscular Hemoglobin 29.4 pg (25.0-34.0); Mean Corpuscular Hgb Conc 33.7 g/dL (32.0-36.0); Mean Corpuscular Volume 87.2 fL (80.0-100.0); Monocytes # (auto) 0.65 K/uL (0.11-0.59); Monocytes % (auto) 5.8 %; Neutrophils # (auto) 9.41 K/uL (1.40-6.50); Neutrophils % (auto) 83.5 %; Platelet Count 160 K/uL (130-400); RDW Coefficient of Variation 13.6 % (11.5-14.5); RDW Standard Deviation 43.2 fL (36.4-46.3); Red Blood Count 4.15 M/uL (4.70-6.10); White Blood Count 11.26 K/ul (4.8-10.8)
[2024-08-12 06:04] LABS: BUN Creatinine Ratio 19.2 (10-20); Calcium 9.2 mg/dl (8.6-10.3); Creatinine Clr Calc Pharmacy 45.4 ml/min; Magnesium 1.9 mg/dl (1.7-2.4); Potassium 4.1 mmol/L (3.5-5.1)
[2024-08-12] MEDS ORDERED: AMIODARONE 200 MG TAB PO SCH (08:00)
[2024-08-12] MEDS: TAMSULOSIN HCL 0.4 MG CAP PO SCH (08:34)
--- NOTE | 2024-08-12 10:15 | CT Scan Report ---
CT head/brain wo con CLINICAL HISTORY: diplopia, recent cardioversion. TECHNIQUE: Multiple axial CT images of the head were obtained without contrast. A dose lowering tech nique was utilized adhering to the principles of ALARA. CT DOSE: 625.8 mGy.cm COMPARISON: 10/09/2021 FINDINGS: There is mild motion artifact. No intracranial hemorrhage seen. No mass effect, midline irma ft, or hydrocephalus. No skull fracture seen. Visualized paranasal sinuses and mastoid air cells are clear. IMPRESSION: No acute findings. ACT 112: Negative or not required by law. The above report was generated using voice recognition software. It may contain grammatical, syntax o r spelling errors. Electronically signed by: Ezequiel Cheney M.D. 08/12/2024 10:13 AM
--- NOTE | 2024-08-12 11:32 | Hospitalist Progress Note ---
Date of Service August 12, 2024 Assessment & Plan (1) Atrial flutter with rapid ventricular response: (2) Shock: (3) Hyperkalemia: (4) Hypomagnesemia: (5) Cardiomyopathy: (6) CKD (chronic kidney disease): (7) Parkinson disease: (8) Type 2 diabetes mellitus: (9) Dyslipidemia: (10) Diplopia: (11) Acute metabolic encephalopathy: Plan 68-year-old male with PMH of atrial flutter who presented on 08/10 for sustained elevated HR and low blood pressure beginning on Monday 08/07. Found to be in atrial flutter with RVR on arrival. #Atrial flutter with RVR/near syncopal episode/hypotension Initially, the patient's BP was 62/45 on ER arrival Received IV fluids and was given beta shane (IV/PO) without any effect on his HRs He continued to have aflutter with RVR & remained hypotensive thus emergently transferred to ICU on 08/10 and was cardioverted x [address] Guzman He has remained in NSR since then s/p amiodarone bolus/infusion, then conversion to PO amiodarone 200mg BID on 08/11 remains on meto succ 50mg daily remains on Eliquis 5mg BID echo this admission shows EF of 55-60% - improved from prior echo (EF 40-45% -- 06/2024) will need f/u with Dr Meza post-d/c --> there has been discussion about performing a.flutter ablation #Hypotension - * thought 2nd to rapid aflutter but with scientologist of NSR he remained hypotensive * no evidence of septic shock * cortisol level low at 5 --> in ICU was given stress-dose steroids * hypotension resolved * steroids weaned off * BPs normal OFF the steroids and meto succ has been resumed w/o issue #Hyperkalemia K 6.0 on arrival s/p multiple agents for such suspect 2nd to decreased renal perfusion in setting of hypotension/aflutter RVR along with chronic amiloride use K level now normal #Hypomagnesemia Mag 1.5 on arrival s/p replacement and normal x 2 days Continue p.o. magnesium supplements #Parkinson's disease Continue carbidopalevodopa x 5 per day now with hallucinations - see below #HLD Continue statin #BPH resumed alpha shane since hypotension resolved #Diplopia etiology uncertain transient - now resolved eye exam wnl; no dysconjugate gaze/palsy detected TIA?? other? obtain MRI brain - r/o stroke check B1 level as thiamine def can cause EOM abnormalities #acute metabolic encephalopathy hallucinations today/overnight --> visual/auditory may simply be due to hospital delirium in setting of his parkinson's MRI brain ordered B1 level ordered B12 level wnl not ideal, but given how significant the hallucinations are we may have to treat the safest antipsychotic in setting of PD is seroquel ordered low-dose 12.5mg HS prn QTc on EKG yesterday wnl #CKD stage 3a Cr slightly higher above baseline today repeat BMP am renal u/s - no obstruction, although it showed prominent prostate - cont alpha shane #T2DM a1c in 06/2024 was modestly high in low 7s cont DM diet glucose this am was 153 order BSGs ac/[facility] institute therapy if needed VTE PPx: Continue Eliquis updated at bedside cleared by PT to return home at d/c Admission and Anticipated Discharge Date Admission Date: August 10, 2024 Subjective tele overnight - NSR patient has been experiencing auditory & visual hallucinations most of today and overnight he also had double vision this am - images were stacked side by side double vision has resolved fortunately he did not sleep well last pm denies any dyspnea or chest pain per his who was at bedside he typically does not have hallucinations eating fair Review of Systems Review of Systems: gen - no fevers cv - no chest pain pulm - no dyspnea or JACK GI - no N/V; last BM 08/10/24 per nursing notes Physical Exam Physical Exam: gen - sitting in chair, NAD, pleasant, awake/alert eyes - PERRL, EOMI, no palsies; no nystagmus neck - no JVD mouth - MMM heart - RRR, s1 s2 lungs - CTA b/l abd - soft NT ND BS+ ext - no edema, pulses 2+ b/l feet neuro - tremors; no ataxia with finger/nose/finger maneuver; strength 5/5 x 4 exts Results & Data Results & Data Vital Signs (Past 12 Hours) Vital Signs Temp Pulse Resp BP Pulse Ox O2 Del Method 08/12/24 10:38 36.4 C L 67 20 158/77 H 100 Room Air 08/12/24 08:00 Room Air 08/12/24 07:35 36.4 C L 85 19 168/74 H 98 Room Air 08/12/24 04:02 36.5 C 69 18 139/82 98 Room Air Laboratory Results Laboratory Results - last 24 hr 08/12/24 05:23 WBC 11.26 H RBC 4.15 L Hgb 12.2 L Hct 36.2 L MCV 87.2 MCH 29.4 MCHC 33.7 RDW Std Deviation 43.2 RDW Coeff of Keke 13.6 Plt Count 160 MPV 11.0 Immature Gran % (Auto) 0.5 Neut % (Auto) 83.5 Lymph % (Auto) 9.8 [place] % (Auto) 5.8 Eos % (Auto) 0.3 Baso % (Auto) 0.1 Neut # (Auto) 9.41 H Lymph # (Auto) 1.10 L [place] # (Auto) 0.65 H Eos # (Auto) 0.03 Baso # (Auto) 0.01 Immature Gran # (Auto) 0.06 Sodium 138 Potassium 4.1 Chloride 104 Carbon Dioxide 27 Anion Gap 7 BUN 34 H Creatinine 1.77 H Est Cr Clr Drug Dosing 45.4 eGFR 40.81 BUN/Creatinine Ratio 19.2 Glucose 153 H Calcium 9.2 Magnesium 1.9 PG Care Time/CCT Total # of Minutes Spent Total Time Spent with Patient: Total time spent is greater than 50% in coordination of care (as documented) at patient's floor/unit and/or counseling patient: Coding Level of Care Code 09187 SUB INP/OBS CARE 3/50MIN Diagnoses Atrial flutter with rapid ventricular response I48.92 Shock R57.9 Hyperkalemia E87.5 Hypomagnesemia E83.42 Cardiomyopathy I42.9 CKD (chronic kidney disease) N18.9 Parkinson disease G20 Type 2 diabetes mellitus E11.9 Dyslipidemia E78.5 Diplopia H53.2 Acute metabolic encephalopathy G93.41
--- NOTE | 2024-08-12 17:58 | Magnetic Resonance Report ---
Clinical History: Diplopia. Unsteady gait Technique: Multiple T1 and T2-weighted magnetic resonance images were obtained of the brain without gadolinium contrast Comparison is made to the prior MRI dated 06/09/2022 Findings: Some sequences are limited by motion artifact There is no sign of acute or old infarction with normal-appearing diffusion weighted images. There is cerebral atrophy, within expected limits for the patient's age. There are small areas of increased T2 signal intensity within the periventricular white matter of the cerebral hemispheres bilaterally. This is most likely due to chronic small vessel ischemic disease. No definite mass lesion is seen on this noncontrast study. There is no intracranial hemorrhage or other fluid collection. No midline shift or other form of herniation is seen. There is no hydrocephalus. Normal flow-voids are seen within the arteries of the [id number]. The orbits and paranasal sinuses appear normal. The mastoid air cells appear clear. Impression: 1. Cerebral atrophy and mild chronic small vessel ischemic disease 2. Otherwise unremarkable noncontrast MRI of the brain Electronically signed by Jaison Reese 08-12-2024 5:58 PM
[2024-08-12] MEDS: MELATONIN 3 MG TAB PO SCH (20:14)
[2024-08-12] MEDS: QUEtiapine FUMARATE 25 MG TABLET PO PRN (20:15)
[2024-08-13 05:06] LABS: Hemoglobin 11.8 g/dl (14.0-18.0); Mean Corpuscular Hemoglobin 29.9 pg (25.0-34.0); Mean Corpuscular Hgb Conc 34.7 g/dL (32.0-36.0); Mean Corpuscular Volume 86.3 fL (80.0-100.0); Mean Platelet Volume 10.9 fL (9.4-12.4); Platelet Count 161 K/uL (130-400); RDW Coefficient of Variation 13.5 % (11.5-14.5); RDW Standard Deviation 42.2 fL (36.4-46.3); Red Blood Count 3.94 M/uL (4.70-6.10); White Blood Count 8.04 K/ul (4.8-10.8)
[2024-08-13 05:22] LABS: BUN Creatinine Ratio 19.1 (10-20); Calcium 9.2 mg/dl (8.6-10.3); Creatinine Clr Calc Pharmacy 52.7 ml/min; Potassium 3.8 mmol/L (3.5-5.1)
[2024-08-13] MEDS: amLODIPine BESYLATE 5 MG TAB PO ONE (20:17)
--- NOTE | 2024-08-13 21:22 | Hospitalist Progress Note ---
Date of Service August 13, 2024 Assessment & Plan (1) Atrial flutter with rapid ventricular response: (2) Shock: (3) Hyperkalemia: (4) Hypomagnesemia: (5) Cardiomyopathy: (6) CKD (chronic kidney disease): (7) Parkinson disease: (8) Type 2 diabetes mellitus: (9) Dyslipidemia: (10) Diplopia: (11) Acute metabolic encephalopathy: Plan 68-year-old male with PMH of atrial flutter who presented on 08/10 for sustained elevated HR and low blood pressure beginning on Monday 08/07. Found to be in atrial flutter with RVR on arrival. #Atrial flutter with RVR/near syncopal episode/hypotension Initially, the patient's BP was 62/45 on ER arrival Received IV fluids and was given beta shane (IV/PO) without any effect on his HRs He continued to have aflutter with RVR & remained hypotensive thus emergently transferred to ICU on 08/10 and was cardioverted x [address] Guzman He has remained in NSR since then s/p amiodarone bolus/infusion, then conversion to PO amiodarone 200mg BID on 08/11 remains on meto succ 50mg daily remains on Eliquis 5mg BID echo this admission shows EF of 55-60% - improved from prior echo (EF 40-45% -- 06/2024) will need f/u with Dr Meza post-d/c --> there has been discussion about performing a.flutter ablation #Hypotension - * thought 2nd to rapid aflutter but with mormonism of NSR he remained hypotensive * no evidence of septic shock * cortisol level low at 5 --> in ICU was given stress-dose steroids * hypotension resolved * steroids weaned off * BPs have been severely high the last 24 hours; suspect due to agitation, confusion, and lack of sleep #Hyperkalemia K 6.0 on arrival s/p multiple agents for such suspect 2nd to decreased renal perfusion in setting of hypotension/aflutter RVR along with chronic amiloride use K level now normal #Hypomagnesemia Mag 1.5 on arrival s/p replacement and normal x 2 days Continue p.o. magnesium supplements #Parkinson's disease Continue carbidopalevodopa x 5 per day now with hallucinations - see below #HLD Continue statin #BPH resumed alpha shane since hypotension resolved #Diplopia etiology uncertain transient - now resolved eye exam remains wnl; no dysconjugate gaze/palsy detected TIA?? other? obtained MRI brain - neg for stroke check B1 level as thiamine def can cause EOM abnormalities place on thiamine 200 BID while awaiting level #acute metabolic encephalopathy hallucinations > visual/auditory --> improved with seroquel low-dose and better sleep overnight likely hospital delirium in setting of his parkinson's recent ICU stay & steroids may have contributed MRI brain negative for CVA B1 level ordered as above B12 level wnl not ideal, but allow the seroquel to continue the safest antipsychotic in setting of PD is seroquel cont low-dose 12.5mg HS prn QTc on EKG wnl #CKD stage 3a renal u/s - no obstruction, although it showed prominent prostate - cont alpha shane Cr today stable #T2DM a1c in 06/2024 was modestly high in low 7s cont DM diet glycemic control adequate #HTN very poor control started 24 hours ago he reports his home BPs are always <130 systolic agitation, confusion, poor sleep, recent steroids, etc likely all to blame orthostatics - drop of 30 points with standing if we treat need to be cautious about making the orthostasis worse cont alpha shane cont meto succ if we need additional bp control then low-dose amlodipine VTE PPx: Continue Deedeequis updated at bedside once again cleared by PT to return home at d/c hopefully d/c home tomorrow Admission and Anticipated Discharge Date Admission Date: August 10, 2024 Subjective no events today patient feeling well eating well no dizziness or lightheadedness slept better last pm at bedside; she agrees he is improved today (however he did call her at 0300 in the middle of the night) tele - no a.flutter Review of Systems Review of Systems: cv - no chest pain pulm - no dyspnea psych - hallucinations improved neuro - no diplopia or visual deficits today Physical Exam Physical Exam: gen - sitting in chair, NAD, looks better today eyes - PERRL, EOMI, no nystagmus neck - no JVD mouth - MMM heart - RRR, s1 s2, no murmur lungs - CTA b/l abd - soft NT ND BS+ ext - no edema, pulses 2+ b/l feet neuro - tremors; walking around the room w/o ataxia Results & Data Results & Data Vital Signs (Past 12 Hours) Vital Signs Temp Pulse Pulse Resp BP Pulse Ox O2 Del Method 08/13/24 19:32 36.7 C 68 20 174/90 H 99 Room Air 08/13/24 15:49 36.5 C 73 18 193/91 H 100 Room Air 08/13/24 14:50 66 08/13/24 10:52 36.8 C 70 18 187/84 H 100 Room Air Laboratory Results Laboratory Results - last 24 hr 08/13/24 08/13/24 08/13/24 04:51 07:27 11:37 WBC 8.04 RBC 3.94 L Hgb 11.8 L Hct 34.0 L MCV 86.3 MCH 29.9 MCHC 34.7 RDW Std Deviation 42.2 RDW Coeff of Keke 13.5 Plt Count 161 MPV 10.9 Sodium 141 Potassium 3.8 Chloride 106 Carbon Dioxide 28 Anion Gap 7 BUN 29 H Creatinine 1.52 H Est Cr Clr Drug Dosing 52.7 eGFR 48.99 BUN/Creatinine Ratio 19.1 Glucose 128 H POC Glucose 119 H 181 H Calcium 9.2 Whole Bld Vitamin B1 Pending 08/13/24 08/13/24 16:10 20:35 WBC RBC Hgb Hct MCV MCH MCHC RDW Std Deviation RDW Coeff of Keke Plt Count MPV Sodium Potassium Chloride Carbon Dioxide Anion Gap BUN Creatinine Est Cr Clr Drug Dosing eGFR BUN/Creatinine Ratio Glucose POC Glucose 161 H 162 H Calcium Whole Bld Vitamin B1 PG Care Time/CCT Total # of Minutes Spent Total Time Spent with Patient: Total time spent is greater than 50% in coordination of care (as documented) at patient's floor/unit and/or counseling patient: Coding Level of Care Code 20649 SUB INP/OBS CARE 2/35MIN Diagnoses Atrial flutter with rapid ventricular response I48.92 Shock R57.9 Hyperkalemia E87.5 Hypomagnesemia E83.42 Cardiomyopathy I42.9 CKD (chronic kidney disease) N18.9 Parkinson disease G20 Type 2 diabetes mellitus E11.9 Dyslipidemia E78.5 Diplopia H53.2 Acute metabolic encephalopathy G93.41
[2024-08-14] MEDS: THIAMINE HCL 100 MG TAB PO SCH (09:27)
[2024-08-14] MEDS: amLODIPine BESYLATE 5 MG TAB PO SCH (11:31)
[2024-08-14] MEDS ORDERED: STAT IV Infusion **Titration per Protocol STA (12:14)
[2024-08-14] MEDS ORDERED: AMIODARONE IV BOLUS & DRIP IV STA (12:14)
[2024-08-14] MEDS ORDERED: 0.2 MICRON FILTER SET 1 EACH IV STA (12:14)
[2024-08-14] MEDS: AMIODARONE / D5W 150 MG/100 ML BAG IV STA (12:31)
[2024-08-14] MEDS: AMIODARONE / D5W 360 MG/200 ML BAG IV ONE (12:48)
[2024-08-14] MEDS: ACETAMINOPHEN 325 MG TAB PO PRN (16:09)
[2024-08-14] MEDS: AMIODARONE / D5W 360 MG/200 ML BAG IV SCH (18:29)
--- NOTE | 2024-08-14 19:29 | Hospitalist Progress Note ---
Date of Service August 14, 2024 Assessment & Plan (1) Atrial flutter with rapid ventricular response: (2) Shock: (3) Hyperkalemia: (4) Hypomagnesemia: (5) Cardiomyopathy: (6) CKD (chronic kidney disease): (7) Parkinson disease: (8) Type 2 diabetes mellitus: (9) Dyslipidemia: (10) Diplopia: (11) Acute metabolic encephalopathy: Plan 68-year-old male with PMH of atrial flutter who presented on 08/10 for sustained elevated HR and low blood pressure beginning on Monday 08/07. Found to be in atrial flutter with RVR on arrival. #Atrial flutter with RVR/near syncopal episode/hypotension Initially, the patient's BP was 62/45 on ER arrival; this was in the setting of rapid aflutter Received IV fluids and was given beta shane (IV/PO) without any effect on his HRs He continued to have aflutter with RVR & remained hypotensive thus emergently transferred to ICU on 08/10 and was cardioverted x [address] Guzman Had remained in NSR since - s/p amiodarone bolus/infusion, then conversion to PO amiodarone 200mg BID on 08/11 remains on meto succ 50mg daily remains on Eliquis 5mg BID echo this admission shows EF of 55-60% - improved from prior echo (EF 40-45% -- 06/2024) unfortunately converted back to rapid aflutter today, 08/14 PO amiodarone placed back on hold started back amio bolus/drip informed [facility] of the rapid aflutter will ask Dr Meza from [facility] this week to entertain the possibility of performing a.flutter ablation before patient leaves hospital as we have exhausted all other means of controlling the aflutter #Hypotension - * thought 2nd to rapid aflutter but with methodist of NSR he remained hypotensive * no evidence of septic shock * cortisol level low at 5 --> in ICU was given stress-dose steroids * hypotension then quickly resolved * steroids weaned off * BPs have actually been severely high the last 48 hours; suspect due to agitation, confusion, and lack of sleep #Hyperkalemia K 6.0 on arrival suspect 2nd to decreased renal perfusion in setting of hypotension/aflutter RVR along with chronic amiloride use K level now normal #Hypomagnesemia Mag 1.5 on arrival s/p replacement and normal x 2 days Continue p.o. magnesium supplements Repeat level am tomorrow #Parkinson's disease Continue carbidopalevodopa x 5 per day now with hallucinations - see below #HLD Continue statin #BPH Continue alpha shane #Diplopia etiology uncertain transient - now resolved eye exam remains wnl; no dysconjugate gaze/palsy detected TIA?? other? obtained MRI brain - neg for stroke check B1 level as thiamine def can cause EOM abnormalities place on thiamine 200 BID while awaiting level #acute metabolic encephalopathy hallucinations > visual/auditory --> improved with seroquel low-dose likely hospital delirium in setting of his parkinson's recent ICU stay & steroids may have contributed MRI brain negative for CVA B1 level ordered as above B12 level wnl not ideal, but allow the seroquel to continue the safest antipsychotic in setting of PD is seroquel cont low-dose 12.5mg HS scheduled with prn dose also available QTc on EKG wnl again today #CKD stage 3a renal u/s - no obstruction, although it showed prominent prostate - cont alpha shane repeat BMP am #T2DM a1c in 06/2024 was modestly high in low 7s cont DM diet glycemic control adequate #HTN very poor control started 48 hours ago he reports his home BPs are always <130 systolic agitation, confusion, poor sleep, recent steroids, etc likely all to blame cont alpha shane cont meto succ added low-dose amlodipine 2.5mg daily starting yesterday thus far tolerating such VTE PPx: Continue Eliquis updated at bedside once again today she is aware of rapid aflutter and calls out to cardiology about management rapid aflutter precludes discharge care d/w cardiology, Dr Bowles Admission and Anticipated Discharge Date Admission Date: August 10, 2024 Subjective last pm he did not sleep well, up much of the night - despite seroquel tele had been showing NSR, then late this morning he converted back to rapid aflutter despite the rapid aflutter he denies any dizziness, chest pain, palpitations, or shortness of breath denies abd pain or N/V at bedside during the visit Review of Systems Review of Systems: cv - no orthopnea, no PND pulm - no cough Physical Exam Physical Exam: gen - laying comfortably in bed, NAD neck - no JVD mouth - MMM heart - tachy, irregular, s1 s2, no murmur lungs - CTA b/l abd - soft NT ND BS+ ext - no edema, pulses 2+ b/l feet neuro - mild tremors - baseline Results & Data Results & Data Vital Signs (Past 12 Hours) Vital Signs Temp Pulse Pulse Resp BP Pulse Ox O2 Del Method 08/14/24 16:00 126 H 143/101 H 08/14/24 15:27 36.3 C L 122 H 20 165/116 H 99 Room Air 08/14/24 14:00 124 H 08/14/24 12:09 174/118 H 08/14/24 10:30 36.4 C L 83 19 166/90 H 98 Room Air 08/14/24 09:31 163/85 H 08/14/24 08:00 70 08/14/24 07:38 36.4 C L 85 20 192/96 H 96 Room Air Laboratory Results Laboratory Results - last 24 hr 08/13/24 20:35 POC Glucose 162 H PG Care Time/CCT Total # of Minutes Spent Total Time Spent with Patient: Total time spent is greater than 50% in coordination of care (as documented) at patient's floor/unit and/or counseling patient: Coding Level of Care Code 61486 SUB INP/OBS CARE 3/50MIN Diagnoses Atrial flutter with rapid ventricular response I48.92 Shock R57.9 Hyperkalemia E87.5 Hypomagnesemia E83.42 Cardiomyopathy I42.9 CKD (chronic kidney disease) N18.9 Parkinson disease G20 Type 2 diabetes mellitus E11.9 Dyslipidemia E78.5 Diplopia H53.2 Acute metabolic encephalopathy G93.41
[2024-08-14] MEDS: QUEtiapine FUMARATE 25 MG TABLET PO SCH (20:43)
[2024-08-14] MEDS ORDERED: QUEtiapine FUMARATE 25 MG TABLET PO PRN (20:45)
--- NOTE | 2024-08-14 21:00 | Communication Note ---
Date of Service: August 14, 2024 EKG obtained this afternoon due to concomitant amiodarone usage with seroquel. EKG - my reading - a.flutter, variable AV block, with rate of ~125. QTc is ~460msec. Binu Chamorro MD
[2024-08-15 05:49] LABS: Hematocrit (blood only) 33.8 % (42.0-52.0); Hemoglobin 11.4 g/dl (14.0-18.0); Mean Corpuscular Hemoglobin 29.4 pg (25.0-34.0); Mean Corpuscular Hgb Conc 33.7 g/dL (32.0-36.0); Mean Corpuscular Volume 87.1 fL (80.0-100.0); Platelet Count 152 K/uL (130-400); RDW Coefficient of Variation 13.5 % (11.5-14.5); RDW Standard Deviation 42.4 fL (36.4-46.3); Red Blood Count 3.88 M/uL (4.70-6.10); White Blood Count 9.51 K/ul (4.8-10.8)
[2024-08-15 06:01] LABS: BUN Creatinine Ratio 16.2 (10-20); Calcium 8.8 mg/dl (8.6-10.3); Creatinine Clr Calc Pharmacy 52.2 ml/min; Potassium 3.8 mmol/L (3.5-5.1)
--- NOTE | 2024-08-15 10:13 | Cardiology Progress Note ---
Date of Service August 15, 2024 Assessment & Plan (1) Atrial flutter with rapid ventricular response: (2) Cardiomyopathy: (3) Hypotension: Plan ASSESSMENT/PLAN: 1. Atrial flutter: Paroxysmal/recurrent. Initially required cardioversion at presentation due to hypotension. Appears that hypotension was not exclusively related to true arrhythmia. He was doing well in the hospital but he had a recurrence of his atrial flutter last evening. Fortunately, feeling better this time around. Blood pressure stable. Has been more difficult to achieve adequate rate control. He does not seem to be responding to amiodarone either. I think reasonable to proceed more quickly with catheter-based therapy and he is currently scheduled for a ablation tomorrow morning. Will hold Eliquis today and tomorrow morning. I will also discontinue amiodarone as it seems ineffectual. 2. Hypotension: Improved. Started on amlodipine as well. 3. Cardiomyopathy: Previously LV function was reduced. However, with return to sinus rhythm the seem to improved. Normal LV function during this admission. Admission and Anticipated Discharge Date Admission Date: August 10, 2024 Subjective This morning patient clearly feeling well. He reported being ambulatory out of bed without significant dizziness, lightheadedness, shortness of breath or chest discomfort. Not aware of palpitations. Review of Systems Review of Systems: Per HPI Physical Exam Physical Exam: The patient is alert and oriented. Mood and affect appeared normal. He answered all questions appropriately. HEENT: Pupils are equal and reactive to light and accommodation. Extraocular movements are intact. The sclerae are anicteric. Neuro: Cranial nerves intact Lungs: Clear to auscultation bilaterally. He has good air movement without use of accessory muscles. No rales wheezes or rhonchi. Cardiac: Heart demonstrates an irregular rhythm and rapid rate. Normal S1 and S2. No murmurs on examination. Pulses: The patient has palpable radial pulses bilaterally that are equal in intensity Extremities: There was no evidence of hypoperfusion. There is no cyanosis or clubbing. There is no edema. Skin: I did not appreciate any rashes on examination today. Results & Data Vital Signs (Past 12 Hours) Vital Signs Temp Pulse Resp BP Pulse Ox O2 Del Method 08/15/24 07:25 36.6 C 130 H 20 139/98 95 Room Air 08/15/24 04:01 36.6 C 129 H 18 115/85 95 Room Air Laboratory Results Abnormal Lab Results 08/14/24 08/15/24 20:52 05:24 WBC 9.51 RBC 3.88 L Hgb 11.4 L Hct 33.8 L MCV 87.1 MCH 29.4 MCHC 33.7 RDW Std Deviation 42.4 RDW Coeff of Keke 13.5 Plt Count 152 MPV 11.0 Sodium 140 Potassium 3.8 Chloride 105 Carbon Dioxide 30 Anion Gap 5 BUN 25 H Creatinine 1.54 H Est Cr Clr Drug Dosing 52.2 eGFR 48.23 BUN/Creatinine Ratio 16.2 Glucose 174 H POC Glucose 203 H Calcium 8.8 Magnesium 2.0 PG Care Time/CCT Total # of Minutes Spent Total Time Spent with Patient: Total time spent is greater than 50% in coordination of care (as documented) at patient's floor/unit and/or counseling patient: Coding Level of Care Code 13183 SUB INP/OBS CARE 2/35MIN Diagnoses Atrial flutter with rapid ventricular response I48.92 Cardiomyopathy I42.9 Hypotension I95.9
--- NOTE | 2024-08-15 11:09 | Electrocardiogram Report ---
Test Reason : Blood Pressure : */* mmHG Vent. Rate : 125 BPM Atrial Rate : 250 BPM P-R Int : * ms QRS Dur : 94 ms QT Int : 370 ms P-R-T Axes : * 53 49 degrees QTcB Int : 534 ms Atrial flutter with variable A-V block Low voltage QRS Nonspecific ST abnormality Abnormal ECG When compared with ECG of 11-Aug-2024 05:37, Atrial flutter has replaced Sinus rhythm Vent. rate has increased by [address] elevation now present in Inferior leads T wave amplitude has decreased in Lateral leads Confirmed by Leighton Meza ([id number] on 08/15/2024 11:08:39 AM Referred By: Leighton Meza Confirmed By: Leighton Meza
--- NOTE | 2024-08-15 14:41 | Hospitalist Progress Note ---
Date of Service August 15, 2024 Assessment & Plan (1) Atrial flutter with rapid ventricular response: (2) Shock: (3) Hyperkalemia: (4) Hypomagnesemia: (5) Cardiomyopathy: (6) CKD (chronic kidney disease): (7) Parkinson disease: (8) Type 2 diabetes mellitus: (9) Dyslipidemia: (10) Diplopia: (11) Acute metabolic encephalopathy: Plan 68-year-old male with PMH of atrial flutter who presented on 08/10 for sustained elevated HR and low blood pressure. Found to be in atrial flutter with RVR on arriva to [facility]. #Atrial flutter with RVR/near syncopal episode/hypotension Initially, the patient's BP was 62/45 on ER arrival; this was in the setting of rapid aflutter Received IV fluids and was given beta shane (IV/PO) without any effect on his HRs He continued to have aflutter with RVR & remained hypotensive thus emergently transferred to ICU on 08/10 and was cardioverted x [address] Guzman Had remained in NSR since - s/p amiodarone bolus/infusion, then conversion to PO amiodarone 200mg BID on 08/11 was continued on meto succ 50mg daily and Eliquis 5mg BID echo this admission shows EF of 55-60% - improved from prior echo (EF 40-45% -- 06/2024) unfortunately converted back to rapid aflutter 08/14 PO amiodarone placed back on hold started back amio bolus/drip unlike early in the admission he has had NO hypotension Dr Meza saw patient this am Plan - * d/c amiodarone drip * HOLD Eliquis * NPO after DE tonight for a flutter ablation on 08/[address] Meza * BPs are NOT high like they were earlier this weekend; thus, hold amlodipine moving forward Appreciate Dr Meza's assistance #Hypotension - present on admission - * thought 2nd to rapid aflutter but with nondenominational of NSR he remained hypotensive * no evidence of septic shock * cortisol level low at 5 --> in ICU was given stress-dose steroids * hypotension then quickly resolved * steroids were weaned off * BPs then actually became severely high several days ago --> suspect due to agitation, confusion, and lack of sleep * see below #Hyperkalemia K 6.0 on arrival suspect 2nd to decreased renal perfusion in setting of hypotension/aflutter RVR along with chronic amiloride use K level now normal amiloride has been d/c #Hypomagnesemia Mag 1.5 on arrival s/p replacement and normal x 2 days Continue p.o. magnesium supplements repeat level today 2 #Parkinson's disease Continue carbidopalevodopa x 5 per day Earlier in the stay had hallucinations - see below #HLD Continue statin #BPH Continue alpha shane #Diplopia etiology uncertain, but fortunately has not recurred since several days ago was transient, lasting only an hour or two eye exam remains wnl; no dysconjugate gaze/palsy detected TIA?? other? obtained MRI brain - neg for stroke check B1 level as thiamine def can cause EOM abnormalities place on thiamine 200 BID while awaiting level #acute metabolic encephalopathy hallucinations > visual/auditory --> improved with seroquel low-dose likely hospital delirium in setting of his parkinson's recent ICU stay & steroids may have contributed MRI brain negative for CVA B1 level ordered as above B12 level wnl not ideal, but allow the seroquel to continue the safest antipsychotic in setting of PD is seroquel cont low-dose 12.5mg HS scheduled with prn dose also available QTc on most recent EKG acceptable #CKD stage 3a renal u/s - no obstruction, although it showed prominent prostate - cont alpha shane creatinine today 1.5 - stable, at baseline #T2DM a1c in 06/2024 was modestly high in low 7s cont DM diet add novolog ssi #HTN labile this entire stay initially was low in the setting of rapid aflutter then developed severely elevated readings this weekend added amlodipine low-dose 2.5mg daily then flipped back to rapid aflutter on 08/15 BPs now controlled or low-normal will hold amlodipine due to low-normal BPs follow BPs carefully cont alpha shane cont meto succ VTE PPx: hold Eliquis in prep for a flutter ablation updated at bedside once again today care d/w Dr Meza via [facility] correspondence Admission and Anticipated Discharge Date Admission Date: August 10, 2024 Subjective tele overnight - ongoing a.flutter, rates 120s/130s remained on amio drip overnight following Dr Meza's visit amio drip now off due to lack of efficacy Dr Meza plans to perform a.flutter ablation on 08/16 patient sitting in chair during the visit at bedside he slept well last pm he overall feels good today denies any dizziness, lightheadedness, chest pain, palpitations, dyspnea eating well NO diplopia NO hallucinations or confusion Review of Systems Review of Systems: CV - no orthopnea, edema, PND pulm - no dyspnea or JACK GI - had BM this am Physical Exam Physical Exam: gen - sitting in chair, NAD, best he has looked entire hospitalization neck - no JVD mouth - MMM heart - tachy, irregular, s1 s2, no murmur lungs - CTA b/l abd - soft NT ND BS+ ext - no edema, pulses 2+ b/l feet neuro - mild tremors - baseline psych - no confusion or hallucinations Results & Data Results & Data Vital Signs (Past 12 Hours) Vital Signs Temp Pulse Resp BP Pulse Ox O2 Del Method 08/15/24 10:48 36.9 C 132 H 20 115/78 95 Room Air 08/15/24 07:25 36.6 C 130 H 20 139/98 95 Room Air 08/15/24 04:01 36.6 C 129 H 18 115/85 95 Room Air Laboratory Results Laboratory Results - last 24 hr 08/14/24 08/15/24 20:52 05:24 WBC 9.51 RBC 3.88 L Hgb 11.4 L Hct 33.8 L MCV 87.1 MCH 29.4 MCHC 33.7 RDW Std Deviation 42.4 RDW Coeff of Keke 13.5 Plt Count 152 MPV 11.0 Sodium 140 Potassium 3.8 Chloride 105 Carbon Dioxide 30 Anion Gap 5 BUN 25 H Creatinine 1.54 H Est Cr Clr Drug Dosing 52.2 eGFR 48.23 BUN/Creatinine Ratio 16.2 Glucose 174 H POC Glucose 203 H Calcium 8.8 Magnesium 2.0 PG Care Time/CCT Total # of Minutes Spent Total Time Spent with Patient: Total time spent is greater than 50% in coordination of care (as documented) at patient's floor/unit and/or counseling patient: Coding Level of Care Code 24230 SUB INP/OBS CARE 3/50MIN Diagnoses Atrial flutter with rapid ventricular response I48.92 Shock R57.9 Hyperkalemia E87.5 Hypomagnesemia E83.42 Cardiomyopathy I42.9 CKD (chronic kidney disease) N18.9 Parkinson disease G20 Type 2 diabetes mellitus E11.9 Dyslipidemia E78.5 Diplopia H53.2 Acute metabolic encephalopathy G93.41
[2024-08-15] MEDS ORDERED: GLUCOSE 10 TAB/TUBE PO PRN (14:45)
[2024-08-15] MEDS ORDERED: GLUCOSE 40% GEL 15 GM TUBE PO PRN (14:45)
[2024-08-15] MEDS ORDERED: DEXTROSE 50% 50 ML SYRINGE IV PRN (14:45)
[2024-08-15] MEDS ORDERED: CARBOHYDRATES FOR HYPOGLYCEMIA PO PRN (14:45)
[2024-08-15] MEDS ORDERED: GLUCAGON FOR INJ 1 MG VIAL SQ PRN (14:45)
[2024-08-15] MEDS: INSULIN ASPART PER UNIT CHARGE SC SCH (16:59)
--- NOTE | 2024-08-16 08:42 | Pre Anesthesia Assessment ---
Date of Service August 16, 2024 Pre Sedation Assessment Vital Signs Temp Pulse Resp BP Pulse Ox O2 Del Method 08/16/24 07:12 36.5 C 139 H 19 117/79 97 Room Air 08/16/24 02:59 36.5 C 134 H 14 120/92 96 Room Air 08/15/24 22:35 36.4 C L 134 H 16 118/91 95 Room Air 08/15/24 19:47 37.1 C 132 H 20 131/94 99 Room Air 08/15/24 15:24 36.7 C 136 H 20 123/88 98 Room Air 08/15/24 10:48 36.9 C 132 H 20 115/78 95 Room Air Cardiovascular + tachycardic Respiratory + respiratory effort normal Pre-Sedation Airway Assessment Smoking Status: Never smoker Hx Sleep Apnea: No Hx Difficult Intubation: No Short, Thick Neck: No Thyromental Distance: > or= 3.5 Finger Breadths Oral Cavity: + WNL Mallampati Class: II ASA: ASA3 Procedure Planning Contraindications for Sedation: none Current Medications Reviewed: Yes Notes The planned sedation has been discussed with the patient. Informed Consent was obtained. I have identified the patient, determined the appropriateness of sedation and have assessed the patient immediately prior to the procedure. All medicine(s) and interventions are by my order.
[2024-08-16] MEDS: LIDOCAINE 1% LOCAL 20 ML VIAL ONE (11:00)
[2024-08-16] MEDS: fentaNYL citrate PF 100 MCG/2 ML VIAL ONE (11:01)
[2024-08-16] MEDS: MIDAZOLAM HCL 5 MG/ML 1 ML VIAL ONE (11:01)
[2024-08-16] MEDS: HEPARIN (PORCINE) 1000 UNIT/ML 10 ML (CATH LAB USE ONLY) ONE (11:02)
--- NOTE | 2024-08-16 11:02 | Post Anesthesia Assessment ---
Date of Service August 16, 2024 Post Sedation Assessment Vital Signs Temp Pulse Resp BP BP Pulse Ox O2 Del Method 08/16/24 08:50 138 H 14 135/91 91 Room Air 08/16/24 07:12 36.5 C 139 H 19 117/79 97 Room Air 08/16/24 02:59 36.5 C 134 H 14 120/92 96 Room Air 08/15/24 22:35 36.4 C L 134 H 16 118/91 95 Room Air 08/15/24 19:47 37.1 C 132 H 20 131/94 99 Room Air 08/15/24 15:24 36.7 C 136 H 20 123/88 98 Room Air Recovery Score Activity: Moves 4 extremities Respiration: Deep Breath/Cough Circulation: +/-20-49% PreAnes Value Consciousness: Arouseable (by name) Oxygen Saturation: > 92% On Room Air Post Anesthesia Score: 8 Discharge Sedation Level of Care: Fast Track Phase II Post Sedation Plan On clinical assessment, the patient appears to have tolerated the sedation without complications. Patient is recovering as anticipated. Patient will continue to be monitored by nursing and may be discharged when sedation discharge criteria are met per below protocol. Upon Completions of procedure up to 15 minutes continue every 5 minute vital signs and the P.A.R. score; then discharge to a Phase I or Fast Track to Phase II per the following guidelines: * Discharge Patient to appropriate Phase II area if PAR is 8 or greater or return to pre- procedure baseline. The post - procedure orders will be as directed. * If PAR score is less than 8 or not return to pre-procedure baseline then patient will follow Phase I monitoring till PAR is reached for Phase II. The Phase I may be done in procedure room or may call to secure a Phase I area. * If naloxone or flumazenil are used for reversal, hold in Phase I for continued monitoring from when last reversal dose was given for a minimum of 60 minutes or longer pending the nurse and/or physician discretion of patient condition before discharge to Phase II. Please call the Sedation Physician to re-evaluate and complete post-note for discharge to Phase II area. Do NOT discharge from procedure sedation or Phase 1 until post- sedation evaluation note is complete by procedure /sedation MD Sedation Discharge Instructions to be given to the patient at discharge to home.
[2024-08-16] MEDS ORDERED: ACETAMINOPHEN 325 MG TAB PO PRN (11:04)
[2024-08-16] MEDS ORDERED: oxyCODONE HCL IR 5 MG TAB (IMMEDIATE RELEASE) PO PRN (11:04)
--- NOTE | 2024-08-16 11:06 | Electrophysiology Report ---
Date of Service August 16, 2024 Electrophysiology Procedure Electrophysiology Procedure Report Procedure performed: Ablation of SVT, complete electrophysiologic testing including pacing of the left atrium via the coronary sinus, arrhythmia induction, three-dimensional electroanatomical mapping Staff cyber systems operations specialist: Leighton Meza MD Indication: The patient is a 68-year-old gentleman with a history of persistent atrial flutter Procedure in detail The patient was informed responded with alternatives to the intended procedure. He understood and wished to proceed. He was taken to the electrophysiology suite in a fasting state. Conscious sedation was administered per protocol the patient was monitored electrocardiography throughout today's procedure. The right femoral area was prepped and draped in usual sterile fashion. This area was anesthetized and subcutaneous ministration of Xylocaine and Marcaine solution. Right femoral vein was accessed 3 times using modified center technique and sheath were placed over guidewires at the site. Issues were used to facilitate passage of the EP catheters to the respective chambers and fluoroscopic guidance. This included right ventricle, coronary sinus and mapping/ablation catheter. The patient's baseline conduction and arrhythmia were characterized. Once the elements of the arrhythmia were known radiofrequency lesions were placed in a linear fashion to the cavotricuspid isthmus until the tachycardia terminated. Three-dimensional electro anatomical mapping was performed for ablation and evaluation of the arrhythmia. Subsequent to ablation attempted arrhythmia induction were made. The patient's baseline conduction system was characterized and repeat electroanatomical mapping was performed prior to conclusion of the case. At the conclusion of the case the catheters and sheaths were removed. Hemostasis was achieved at the access site using manual pressure. The patient tolerated the procedure well. There were no immediate complications. Findings: Baseline tachycardia appears to be as isthmus dependent right atrial flutter based on electroanatomical mapping which revealed the entire cycle length to be present in the right atrium. Ablation: Ablation was performed using an irrigated 3.5 mm radiofrequency contact for sensing ablation catheter. Linear lesions were placed to the cavotricuspid isthmus until bidirectional block could be confirmed. Ablation was performed in a power limited mode. Arrhythmia induction: Subsequent to ablation attempted arrhythmia induction were performed using burst atrial pacing for both the lateral and medial portions of the cavotricuspid isthmus. Pacing was performed down to cycle length of 250 ms. Postablation intervals Cycle length in the atrium 744 ms Cycling in the ventricle 748 ms KS interval 150 ms QRS duration 74 ms QT interval 376 ms AH interval 74 ms HV interval 48 ms AV Wenckebach occurred at 350 ms Retrograde conduction was poor AV node effective refractory period was 250 ms. There was no evidence of dual AV kev physiology and no echo beats Impression: Typical isthmus dependent right atrial flutter Successful creation of bidirectional block through the cavotricuspid isthmus rendering atrial flutter noninducible Normal baseline conduction intervals subsequent to ablation No evidence of accessory pathway conduction or dual AV kev physiology [facility] Electrophysiology codes EP Procedure 1: Electrophysiology: 44524 EPS and Ablation SVT Procedure 2: Electrophysiology: 88264 3D mapping Procedure 3: Electrophysiology: 58534 Arrhythmia induction Procedure 4: Electrophysiology: 92490-84 Comp EPS w/LA pacing PG Moderate Sedation Codes Moderate Sedation Codes Procedure 1: Sedation/Anesthesia: 83087 Mod Sedation by the same physician;Init15 Min Child Age 5 & Up Procedure 2: Sedation/Anesthesia: 56231 Mod Sedation by the same physician; Ea [id number] Minutes
--- NOTE | 2024-08-16 15:46 | Electrocardiogram Report ---
Test Reason : Blood Pressure : */* mmHG Vent. Rate : 85 BPM Atrial Rate : 85 BPM P-R Int : 188 ms QRS Dur : 96 ms QT Int : 414 ms P-R-T Axes : 70 9 61 degrees QTcB Int : 492 ms Normal sinus rhythm Possible Left atrial enlargement When compared with ECG of 14-Aug-2024 18:10, Sinus rhythm has replaced Atrial flutter ST no longer elevated in Inferior leads Non-specific change in ST segment in Lateral leads Confirmed by Leighton Meza ([id number]) on 08/16/2024 3:46:33 PM Referred By: Leighton Meza Confirmed By: Leighton Meza
[2024-08-16 16:11] VITALS: PULSE 89; RESP 19; TEMP 98.2; O2SAT 98
--- NOTE | 2024-08-16 17:28 | Discharge Summary ---
Discharge Summary Date of Service date of admission - August 10, 2024 date of discharge - August 16, 2024 Principal Dx & Hospital Course #1 = Principal Diagnosis (1) Atrial flutter with rapid ventricular response: (2) Shock: (3) Hyperkalemia: (4) Hypomagnesemia: (5) Cardiomyopathy: (6) CKD (chronic kidney disease): (7) Parkinson disease: (8) Type 2 diabetes mellitus: (9) Dyslipidemia: (10) Diplopia: (11) Acute metabolic encephalopathy: Plan 68-year-old male with history of atrial flutter who presented on 08/10/24 for sustained elevated HR and low blood pressure. Found to be in atrial flutter with RVR on arrival to [facility]. #Atrial flutter with RVR - s/p ablation procedure by Dr Leighton Meza 08/16/24 - * Initially, the patient's BP was 62/45 on ER arrival; this was in the setting of rapid aflutter * Received IV fluids and was given beta shane (IV/PO) without any effect on his HRs * He continued to have aflutter with RVR & remained hypotensive thus emergently transferred to ICU on 08/10/24 and was cardioverted x [address] Josue Guzman, [facility] * Following cardioversion he was given amiodarone bolus/infusion, then conversion to PO amiodarone 200mg BID on 08/11/24 * Was continued on metoprolol succinate 50mg daily and Eliquis 5mg BID * Echo this admission -- EF of 55-60% - improved from prior echo (EF 40-45% -- 06/2024) * Unfortunately converted back to rapid aflutter 08/14/24 * PO amiodarone was discontinued since it was not effective at maintaining NSR * This time, however, patient did not suffer any hypotension in the setting of the rapid atrial flutter * Seen by Dr Leighton Meza, [facility] on 08/15/24; he advised atrial flutter ablation * Dr Meza performed successful atrial flutter ablation on 08/16/24 * Eliquis was held for about 24 hours around the time of his ablation; Eliquis can be resumed PM of 08/16/24 * Patient was given written post-ablation discharge instructions regarding activities, etc. * He will need follow-up with Dr Meza a few weeks post-discharge for recheck #Hypotension - present on admission - * thought 2nd to rapid atrial flutter but with bahai of NSR with cardioversion he still remained hypotensive * no evidence of septic shock * cortisol level was low at 5 --> in ICU was given stress-dose steroids * hypotension then quickly resolved * steroids were weaned off as patient actually developed severely high BPs (possibly due to confusion, agitation, & lack of sleep) * further, when he developed rapid atrial flutter later in the stay, his BPs remained stable fortunately * he was NOT given ongoing steroids late in the stay or at time of discharge * patient's amiloride was discontinued while here #Hyperkalemia - * K level 6.0 on arrival * suspect 2nd to decreased renal perfusion in setting of hypotension/atrial flutter with RVR along with chronic amiloride use * K level normalized with standard treatments * amiloride has been d/c * K level was normal for several days prior to discharge #Hypomagnesemia - * Mag 1.5 on arrival * s/p replacement and normal thereafter * Continue p.o. magnesium supplements TID as previous #Parkinson's disease - * Continue carbidopalevodopa x 5 per day * Earlier in the stay had hallucinations - see below #Hyperlipidemia - * Continue statin #BPH - * Continue alpha shane #Diplopia - * etiology uncertain, but fortunately it was short-lived and did not recur once his confusion/hallucinations had resolved * was transient, lasting only an hour or two * eye exam was wnl the entire stay; no dysconjugate gaze/palsy detected * TIA?? * other? * obtained MRI brain - negative for stroke * checked B1 level as thiamine def can cause abnormalities with extraocular muscle movements * placed on thiamine 200 BID while awaiting level #acute metabolic encephalopathy - * hallucinations > visual/auditory --> improved with seroquel low-dose * likely hospital delirium in setting of his parkinson's * recent ICU stay & steroids may have contributed * MRI brain negative for CVA * B1 level ordered as above * B12 level wnl * at discharge his mental status was at baseline; seroquel was NOT prescribed at discharge #CKD stage 3a - * renal u/s - no obstruction, although it showed prominent prostate - cont alpha shane * creatinine 1.5 at discharge - stable, at baseline #T2DM - * Hba1c in 06/2024 was modestly high in low 7s * he will continue sitagliptin-metformin BID at discharge #HTN - * labile the entire stay * initially was very low in the setting of rapid aflutter * then developed severely elevated readings in the middle of the stay * required amlodipine low-dose for a few days * following atrial flutter ablation BPs were normal * he will cont alpha shane + metoprolol succinate upon transition home Notes For Next Care Provider Medication Changes From Visit thiamine 200mg BID x 30 days stop amiloride Admission HPI Per Admitting Provider Shane Wilson is a pleasant 68-year-old male with PMH of T2DM, HTN, sleep apnea, Parkinson disease, cardiomyopathy, and atrial flutter (on apixaban). He presented on 08/10 for lightheadedness, sustained tachycardia, and hypotension since Monday 08/07. Remote history of atrial flutter requiring hospitalization at [facility] 06/28 - 06/30. BP was 62/45 on arrival, however rebounded on its own up to 103/82 once patient was lying flat in bed. Patient reports he is largely asymptomatic at this time except for headache and some lightheadedness with walking. No reported fevers at home. No chest pain, SOB, or chest palpitations. He has been taking his blood pressure every day for the past 4 days, and it has been low with systolic in the 90 range. His home heart rate has also been up to 130 to 140 bpm, and reports that this has been sustained. Patient follows with Dr. Meza outpatient, and when he and his called the office today, they recommended he come to the emergency department to be evaluated. Prior to June 2024, patient had no history of atrial flutter. His atrial flutter went away without the need for ablation during his last hospitalization. Patient took all of his regular morning medicines today. In regard to medication changes, his metoprolol succinate was recently increased from 25 to 50 mg p.o. QAM. He was also recently started on Eliquis 5 mg p.o. daily, and reports no missed dosages. No prior history of issues with his kidneys, and he reports he has not had a elevated potassium in the past. Patient denies smoking, tobacco use, recent alcohol use. Patient is tachycardic at 132 bpm at time of admission; vitals otherwise stable. ED course: Calcium gluconate 1000 mg IV x 2 Lopressor 5 mg IV Magnesium sulfate 1 g IV Sodium bicarbonate 50 mill equivalents IV Regular insulin 10 units IV Dextrose 250 mL IV ROS: Patient endorses headache, lightheadedness when walking, dry cough, and one episode of diarrhea on Thursday. Patient denies fever, chills, night sweats, dizziness, rashes, tick bites, changes in vision, chest pain, chest palpitations, pleuritic CP, SOB, productive cough, abdominal pain, N/V, changes in urinary bowel habits, burning radiation, blood in the urine or stool, or numbness or tingling in the arms or legs. Discharge Exam gen - sitting in chair, NAD, looks wel neck - no JVD mouth - MMM heart - RRR, s1 s2, no murmur lungs - CTA b/l abd - soft NT ND BS+ ext - no edema, pulses 2+ b/l feet neuro - mild tremors - baseline psych - no confusion or hallucinations, oriented vascular - right femoral access site - clean, dressing intact, no hematoma, no aneurysm Discharge Plan Discharge Items Patient Disposition: Home - Self-Care Reason For Visit: RAPID ATRIAL FLUTTER Discharge Diagnosis: 1. atrial flutter - required electrical cardioversion, then ultimately atrial flutter ablation procedure on 08/16/24 - Dr Leighton Meza 2. hypotension/shock (low blood pressure) - fully resolved; due to #1 and potentially other factors 3. type 2 diabetes 4. Parkinson's disease 5. hallucinations/confusion - resolved; due to hospital delirium; MRI brain negative/normal 6. high potassium levels - resolved 7. mild chronic kidney disease Activity: As commented below Lifting: No more than 10 pounds Lifting Comment: No lifting more than 10 pounds or straining for 7 days Bathing: No limitations Exercise/Sports: Wait until after follow-up appointment Non-emergency contact: Primary Care Provider and Front Desk Clerk Call non-emergency contact if: you have any medication questions Follow-up/Referrals: Dk North CRNP [Primary Care Provider] - 08/23/24 10:20 am (Scheduled with Elza Morrison PA-C) Leighton Meza MD [Physician] - (within 2-3 weeks; Dr Meza's office to arrange appointment ) Diet: Carb Consistent or DM2 and Heart Healthy Addtl Attending Provider Instructions: Mr Wilson, You were hospitalized due to rapid atrial flutter which led to a host of other issues (low blood pressure, high potassium, kidney numbers were off, etc). You required electrical cardioversion early in your stay. The procedure restored normal rhythm for a few days. You were then placed on a medicine called amiodarone to try and keep you in normal rhythm. Unfortunately, on 08/14/24, your heart went back to rapid atrial flutter. As all other means of treating the atrial flutter had been tried Dr Leighton Meza was asked to see you and he recommended ablation. You underwent successful atrial flutter ablation on 08/16/24. You are now back in normal rhythm. See handouts on a.flutter and ablation. Again your stay was complicated by low blood pressure, a mild rise in your creatinine (kidney number), high potassium, and confusion/hallucinations. All of these issues have resolved. Your creatinine is back to its typical level for you (about 1.5). Potassium is normal. Your thinking and mentation is back to normal as well. Dr Meza has listed instructions about do's and dont's following your procedure today. Most importantly - * no lifting anything over 10 pounds for 7 days * no straining for 7 days (no straining while trying to have a bowel movement, etc) * nothing strenuous over the next 7 days Although physical therapy advised outpatient PT, please plan to NOT start this for at least 2 weeks. Light activities and light walks are perfectly fine. The only new prescription is for vitamin B1 (thiamine). Take this for 30 days. You can resume your Eliquis tonight at bedtime. STOP amiloride. Follow-up - see separate section Return to [facility] if - * you have fevers over 100 degrees * you have any concerns about your right groin (increased pain, swelling, drainage, redness, bleeding, etc) * you are feeling short of breath * you are dizzy or lightheaded * you check your heart rate (pulse) and it is consistently over 100 (similar to what you had at home prior to this hospitalization) * any other concerns It was our pleasure to care for you! -Dr Chamorro Pending Studies at Discharge: No Stand-Alone Forms: My [facility] [employer], Smoking Cessation Medications and DC Order Prescriptions: New thiamine HCl (vitamin B1) 100 mg Tablet 200 mg PO BID 30 Days Qty: 120 0RF Continued atorvastatin 20 mg tablet 20 mg PO QPM Qty: 90 3RF magnesium oxide 400 mg (241.3 mg magnesium) tablet 400 mg PO TID Qty: 270 1RF Rx Instructions: 08/10- otc unable to verify sitagliptin phos-metformin 50-1,000 mg tablet 1 tab PO BID 90 Days Qty: 180 3RF Eliquis 5 mg tablet 5 mg PO BID Qty: 60 5RF multivitamin tablet 1 tab PO QAM Rx Instructions: 08/10- otc unable to verify alfuzosin 10 mg tablet extended release 24 hr 10 mg PO QAM carbidopa-levodopa 25-100 mg tablet 1 tab PO UD Rx Instructions: 1 tab po 5xd. 1 tab PO at 6 am, 10 am, 2 pm and 6 pm and 10 pm. Last filled 07/01 30 day supply metoprolol succinate 50 mg tablet extended release 24 hr 50 mg PO DAILY Qty: 30 1RF Discontinued amiloride 5 mg tablet 5 mg PO QAM Discharge Orders: Discharge Order (Routine); Ordered 08/16/24 Ordered By: Kris Macias/Other Patient Handouts: Having Catheter Ablation, Understanding Atrial Flutter Admission Data Admit Date/Time: 08/10/24 12:34 Attending Provider: Kris Chamorro Admit Provider: Kris Chamorro Primary Care Provider: Dk North Other Providers: Franki Guzman; Adalid Wolfe; Leighton Meza Other Interventions: Discharge Summary Assessment (RN) Last Done: 08/16/24 17:33 Hospital Stay Data Consultations 08/10/24 12:16 Consult Cardiology Routine 08/10/24 16:10 Consult Anesthesiology Stat 08/10/24 19:09 Consult Silk Screen Repairer Routine Procedures Performed Operation Date: 08/16/24 09:00 Actual Procedures EPS + Ablation for SVT Flutter(Right) - Leighton Meza MD Cardioversion - Dr Franki Guzman - 08/10/24 Echocardiogram - Diagnostic Imagining Performed Chest X-Ray 08/10/24 11:12 XR chest 1V portable CLINICAL HISTORY: Dysrhythmia COMPARISON STUDY: 06/28/2024 FINDINGS: Single view chest is unchanged and demonstrate no acute pulmonary process. There is mild cardiomegaly with left ventricular prominence. There is no pleural effusion or pneumothorax. IMPRESSION: Stable exam demonstrating mild cardiomegaly and no acute cardiopulmonary process. ACT 112: Negative or not required by law. Electronically signed by: Nikki Victor M.D. 08/10/2024 11:33 AM Renal Ultrasound 08/11/24 12:04 EXAM: US Retroperitoneal Limited Renal INDICATION: Acute kidney insufficiency. Hyperkalemia. TECHNIQUE: Real-time limited ultrasound of the retroperitoneum with image documentation. COMPARISON: No relevant prior studies available. FINDINGS: Right kidney: 10.1 cm long. Cortical thickness and echotexture maintained. No stones. No solid mass. Simple 1.3 cm cyst. No further assessment required. No hydronephrosis. Left kidney: 10.0 cm long. Cortical thickness and echotexture maintained. No stones. No solid mass. No hydronephrosis. Question trace perinephric fluid. Bladder: Moderately distended. Ureteral jets seen bilaterally. Prostate: Enlarged particularly the median lobe with approximate measurement of the calcified prostate measuring 4.8 x 4.1 x 4.4 cm. IMPRESSION: 1. No significant sonographic abnormality of either kidney. 2. Question trace left perinephric fluid. 3. Calcified prostate with prominent lobulated median lobe indenting the bladder. Correlate clinically. ACT 112: Positive. There are findings on this exam that require communication between the performing entity and the patient following Patient Test Result Information Act ([place] ACT 112) guidelines. Electronically signed by Teresa Reyez 08-11-2024 4:[address] 08/12/24 08:35 CT head/brain wo con CLINICAL HISTORY: diplopia, recent cardioversion. TECHNIQUE: Multiple axial CT images of the head were obtained without contrast. A dose lowering technique was utilized adhering to the principles of ALARA. CT DOSE: 625.8 mGy.cm COMPARISON: 10/09/2021 FINDINGS: There is mild motion artifact. No intracranial hemorrhage seen. No mass effect, midline shift, or hydrocephalus. No skull fracture seen. Visualized paranasal sinuses and mastoid air cells are clear. IMPRESSION: No acute findings. ACT 112: Negative or not required by law. The above report was generated using voice recognition software. It may contain grammatical, syntax or spelling errors. Electronically signed by: Ezequiel Cheney M.D. 08/12/2024 10:13 AM Brain MRI 08/12/24 11:33 Clinical History: Diplopia. Unsteady gait Technique: Multiple T1 and T2-weighted magnetic resonance images were obtained of the brain without gadolinium contrast Comparison is made to the prior MRI dated 06/09/2022 Findings: Some sequences are limited by motion artifact There is no sign of acute or old infarction with normal-appearing diffusion weighted images. There is cerebral atrophy, within expected limits for the patient's age. There are small areas of increased T2 signal intensity within the periventricular white matter of the cerebral hemispheres bilaterally. This is most likely due to chronic small vessel ischemic disease. No definite mass lesion is seen on this noncontrast study. There is no intracranial hemorrhage or other fluid collection. No midline shift or other form of herniation is seen. There is no hydrocephalus. Normal flow-voids are seen within the arteries of the [id number]. The orbits and paranasal sinuses appear normal. The mastoid air cells appear clear. Impression: 1. Cerebral atrophy and mild chronic small vessel ischemic disease 2. Otherwise unremarkable noncontrast MRI of the brain Electronically signed by Jaison Reese 08-12-2024 5:58 PM Pending Results Patient Have Any Pending Studies at Discharge: No Discharge Instructions Given to Patient (Per Discharging Provider) Williams Lyon were hospitalized due to rapid atrial flutter which led to a host of other issues (low blood pressure, high potassium, kidney numbers were off, etc). You required electrical cardioversion early in your stay. The procedure restored normal rhythm for a few days. You were then placed on a medicine called amiodarone to try and keep you in normal rhythm. Unfortunately, on 08/14/24, your heart went back to rapid atrial flutter. As all other means of treating the atrial flutter had been tried Dr Leighton Meza was asked to see you and he recommended ablation. You underwent successful atrial flutter ablation on 08/16/24. You are now back in normal rhythm. See handouts on a.flutter and ablation. Again your stay was complicated by low blood pressure, a mild rise in your creatinine (kidney number), high potassium, and confusion/hallucinations. All of these issues have resolved. Your creatinine is back to its typical level for you (about 1.5). Potassium is normal. Your thinking and mentation is back to normal as well. Dr Meza has listed instructions about do's and dont's following your procedure today. Most importantly - * no lifting anything over 10 pounds for 7 days * no straining for 7 days (no straining while trying to have a bowel movement, etc) * nothing strenuous over the next 7 days Although physical therapy advised outpatient PT, please plan to NOT start this for at least 2 weeks. Light activities and light walks are perfectly fine. The only new prescription is for vitamin B1 (thiamine). Take this for 30 days. You can resume your Eliquis tonight at bedtime. STOP amiloride. Follow-up - see separate section Return to [facility] if - * you have fevers over 100 degrees * you have any concerns about your right groin (increased pain, swelling, drainage, redness, bleeding, etc) * you are feeling short of breath * you are dizzy or lightheaded * you check your heart rate (pulse) and it is consistently over 100 (similar to what you had at home prior to this hospitalization) * any other concerns It was our pleasure to care for you! -Dr Chamorro Total Time Total Time Spent Total Time Spent (In Minutes): 50 Coding Level of Care Code 35526 INP/OBS DISCH >30 MIN Diagnoses Atrial flutter with rapid ventricular response I48.92 Shock R57.9 Hyperkalemia E87.5 Hypomagnesemia E83.42 Cardiomyopathy I42.9 CKD (chronic kidney disease) N18.9 Parkinson disease G20 Type 2 diabetes mellitus E11.9 Dyslipidemia E78.5 Diplopia H53.2 Acute metabolic encephalopathy G93.41
[2024-08-16 17:35] VITALS: BP 146/94
== END 2024-08-16 17:58 | disposition home or self-care (01) | DRG 273 ==
LOC: ED 10:49 → 2S 12:34 → INTOOBSV 12:34 → SUATTDRO 12:34 → 2S 13:11 → 1E 18:25 → 2E 08-11 19:21

== ENCOUNTER 2024-11-01 18:35 | Observation (INO) ==
[2024-11-01] MEDS: SODIUM CHLORIDE 0.9% 1,000 ML IV STA (18:59)
--- NOTE | 2024-11-01 19:03 | Emergency Department Note ---
Impression & Plan Elevated troponin Admission ED Provider Note HPI: History obtained from patient. The patient is a 69-year-old gentleman who presents the emergency department today with chief complaint of low blood pressure. Patient states earlier in the day today he had a stress test, he states that everything went well with this test but he was told when he was leaving that his blood pressure did get high. Patient was instructed to come to the ER if his blood pressure was still high at home. Patient states he did take his blood pressure later in the day when he got home and it was actually low. Patient states his blood pressure was in the 70s systolic. Patient states he did not have any symptoms at the time but since it was so low he decided to come to the ER to be assessed. On my assessment here in the ED the patient's blood pressure is 109/69, he is otherwise hemodynamically stable and saturating well on room air. Patient states he feels "fine". Patient denies any chest pain or shortness of breath, he denies any headache or visual changes. Patient otherwise appears to be in no acute distress on my initial assessment. ROS: - Per HPI Differential Diagnosis: Sepsis, vasovagal event, NSTEMI, ACS, tachyarrhythmia to include atrial fibrillation with RVR, atrial flutter, SVT, amongst other potential pathologies. *Outpatient medications and allergy history reviewed. PE: General: Alert HEENT: Normocephalic, trachea midline Eyes: Extraocular eye movement is intact, no scleral erythema Pulmonary: Clear to auscultation bilaterally, no wheezing Cardio: Regular rate and rhythm GI: Abdomen is soft to palpation : No suprapubic tenderness MSK: No evidence of trauma or malformation of the extremities, no edema Skin: No evidence of rash Neuro: Alert, no focal deficits Psychiatric: Cooperative INDEPENDENT INTERPRETATIONS: quality assurance monitor final: (As interpreted by myself): - An order was placed for continuous cardiac monitoring - Patient was noted to be in sinus rhythm with a rate of 80 EKG: (As interpreted by myself): Rate: 85 Rhythm: Normal sinus rhythm Intervals: QRS 144 ms, otherwise within normal limits ST changes: No ST elevation Time: 1845 Chest x-ray: (As interpreted by myself): No acute process Interventions provided in ED: - Aspirin, IV fluid bolus Medical Decision Making: IV was established and lab work obtained, patient was placed on quality assurance monitor final. Lab work shows a normal white blood cell count, hemoglobin is stable at 12.3, platelet count is normal, CMP shows mild elevated creatinine at 1.67 for which the patient was given IV fluids, high-sensitivity troponin was obtained and is elevated at 657. Patient denies any chest pain or shortness of breath, his EKG shows normal sinus rhythm without any acute ischemic changes. Chest x-ray was obtained and there is no evidence of any acute process. I discussed the patient's presentation with the on-call shell molding roller blast operator, Dr. Meza, who is familiar with the patient from his stress testing earlier today. He states the patient actually had an episode of atrial flutter and was given metoprolol and restarted on his anticoagulation after stress test today. His heart rate did improve into the low 100s prior to his discharge from a stress test. Patient was to follow-up tomorrow in the office. Given the patient's elevated troponin, he will be admitted following my discussion with Dr. Meza. Patient was given an aspirin, given that he took his Eliquis earlier this afternoon we will hold off on anticoagulation or heparin. Patient currently is asymptomatic therefore I do think this is reasonable. Patient was in agreement for admission, case was discussed with the on-call hospitalist, Dr. Olvera, the patient was placed for admission in stable condition. Consultants/Discussions held with other healthcare providers: - Hospitalist, Dr. Olvera - Credit Administration Officer, Dr. Meza Disposition discussion held by myself with: - Patient Diagnosis: 1. Elevated high-sensitivity troponin, acute 2. History of atrial flutter 3. Hypotension by history Disposition: Admission Jovani Soto DO Emergency Medicine Past Med/Surg History Problem List (Updated 11/01/24 @ 23:42 by Jovani Soto DO) Elevated troponin (Acute) ELIZABETH (acute kidney injury) Renal cyst, right Calcification of prostate Acute metabolic encephalopathy Diplopia Shock Hypotension Hyperkalemia Hypomagnesemia (Acute) Atrial flutter with rapid ventricular response (Acute) Mitral regurgitation Cardiomyopathy Atrial flutter CKD (chronic kidney disease) (Acute) Atrial flutter by electrocardiography (Acute) Spinal stenosis, lumbar region with neurogenic claudication Cervical pain (neck) Osteopenia Lumbar facet joint syndrome Sacroiliitis Kidney stones, calcium oxalate Vitamin D deficiency Tremor Parkinson disease Stenosis of cavernous portion of right internal carotid artery History of colon polyps Anemia Neurogenic claudication due to lumbar spinal stenosis Status post lumbar surgery L5-S1 Decompression and Fusion, L2-L5 Hardware Removal, Spinal Cord Monitoring, Application of Bone Morphogenetic Protein and Allograft - [place], Bilateral cataracts Left ventricular hypertrophy Echocardiogram 12/24/2018-LVEF 45-50 percent, severe inferolateral hypokinesis. Mid base to mid inferior hypokinesis. Echocardiogram 01/25/2019-mild concentric left ventricular hypertrophy with normal systolic function. Quijano treadmill score 6; met level achieved was 7 Hx of pyloric stenosis s/p surgical repair Type 2 diabetes mellitus NIDDM Sleep apnea inconclusive sleep study, no device prescribed Lumbar radiculopathy Dyslipidemia Carotid artery plaque Mild nonobstructive plaque noted on 2014 carotid doppler Chronic osteoarthritis Enlarged prostate with lower urinary tract symptoms (LUTS) Hypertension Medical History Hearing loss Obesity Surgical History H/O cardiac radiofrequency ablation History of lithotripsy History of non-cataract eye surgery History of cataract surgery History of back surgery Hx of colonoscopy History of partial knee replacement History of lumbar fusion History of gastric surgery Family History Father Coronary heart disease Myocardial infarction Diabetes Heart disease Sister Family history of gallbladder disease Diabetes Other Family history of kidney stones Denies family history of Ovarian cancer Prostate cancer Breast cancer Lung cancer Colorectal cancer Social History Smoking Status: Never smoker Second Hand Exposure: Yes (WHEN HE WAS WORKING); Do You Dip or Chew Tobacco: No; Hx Alcohol Use: No Hx Substance Use: No Preferred Language: Irish Communication Ability: Effective Visual Impairment: No Limitations Hearing Ability: Normal Inventory Taker Required: No Beliefs That Will Affect Care: None marital status: Current Living Situation: Spouse Current Living Situation Comment: Home with spouse 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 How many Children do You have: 0 Feels Safe at Home: Yes Safety Concerns: Feels Safe At This Time Childhood Exposure to Second-Hand Smoke: No Diet: regular Diet Comment: regular caffeine: Yes during the past year weight has: remained stable Dental Care, Regularly: Yes Physical Activity Frequency: Other Seatbelt Use: sometimes Sunscreen Use: No Assistive Devices: Cane and Glasses Allergies Allergies Allergy/AdvReac Type Severity Reaction Status Date / Time No Known Allergies Allergy Verified 11/01/24 20:19 Home Meds Home Medications Medication Instructions Recorded Confirmed sitagliptin phosphate 50 1 tab PO BID 08/23/24 11/01/24 mg-metformin 1,000 mg tablet alfuzosin 10 mg tablet,extended 10 mg PO QAM 11/01/24 11/01/24 release 24 hr carbidopa 25 mg-levodopa 100 mg 1 tab PO 5XD 11/01/24 11/01/24 tablet cholecalciferol (vitamin D3) 25 0 mcg PO DAILY 11/01/24 11/01/24 mcg (1,000 unit) capsule (Vitamin D3) magnesium chloride 71.5 mg 71.5 mg PO QAM 11/01/24 11/01/24 (magnesium chloride) tablet,delayed release (Slow-Mag) multivitamin with minerals-folic 1 tab PO DAILY 11/01/24 11/01/24 acid 80 mcg chewable tablet (Centrum Adult 50 Plus) Previous Rx's Medication Instructions Recorded atorvastatin 20 mg tablet 20 mg PO QPM #90 tabs 09/27/24 metoprolol succinate 50 mg 50 mg PO DAILY #30 tabs 10/28/24 tablet,extended release 24 hr Results & Data (ED) Vital Signs Vital Signs - 24 hr 11/01/24 18:38 11/01/24 18:48 11/01/24 18:55 Temperature 36.2 C L Temperature Source Temporal Artery Scan Pulse Rate 96 H 81 Pulse Rate from SpO2 Sensor Pulse Rhythm Respiratory Rate 17 Respiratory Effort / Characteristics Non-Labored Spontaneous Respiratory Depth Normal Respiratory Pattern Regular Blood Pressure 109/69 Blood Pressure Mean 82 Pulse Oximetry 97 97 Oxygen Delivery Method Room Air Room Air Sepsis Recent Fever Within 48 Hours No Sepsis New/Unexplained Change in Mental Status N/A Sepsis Action Taken by Nursing No Action Required 11/01/24 18:57 11/01/24 18:58 11/01/24 19:09 Temperature Temperature Source Pulse Rate 81 87 80 Pulse Rate from SpO2 Sensor 79 Pulse Rhythm Regular Regular Respiratory Rate 17 18 11 L Respiratory Effort / Characteristics Respiratory Depth Respiratory Pattern Blood Pressure 137/76 Blood Pressure Mean 96 Pulse Oximetry 97 97 100 Oxygen Delivery Method Room Air Room Air Sepsis Recent Fever Within 48 Hours Sepsis New/Unexplained Change in Mental Status Sepsis Action Taken by Nursing 11/01/24 19:27 11/01/24 20:03 11/01/24 20:33 Temperature Temperature Source Pulse Rate 77 70 68 Pulse Rate from SpO2 Sensor 77 72 67 Pulse Rhythm Respiratory Rate 16 14 13 Respiratory Effort / Characteristics Respiratory Depth Respiratory Pattern Blood Pressure 140/72 161/83 H 134/79 Blood Pressure Mean 94 109 97 Pulse Oximetry 96 98 98 Oxygen Delivery Method Sepsis Recent Fever Within 48 Hours Sepsis New/Unexplained Change in Mental Status Sepsis Action Taken by Nursing 11/01/24 21:06 Temperature Temperature Source Pulse Rate 73 Pulse Rate from SpO2 Sensor 73 Pulse Rhythm Respiratory Rate 11 L Respiratory Effort / Characteristics Respiratory Depth Respiratory Pattern Blood Pressure 137/81 Blood Pressure Mean 99 Pulse Oximetry 98 Oxygen Delivery Method Sepsis Recent Fever Within 48 Hours Sepsis New/Unexplained Change in Mental Status Sepsis Action Taken by Nursing Laboratory Data 11/01/24 18:55 11/01/24 18:55 Lab Results 11/01/24 11/01/24 Range/Units 18:55 20:39 WBC 6.44 (4.8-10.8) K/ul RBC 4.09 L (4.70-6.10) M/uL Hgb 12.3 L (14.0-18.0) g/dl Hct 36.4 L (42.0-52.0) % MCV 89.0 (80.0-100.0) fL MCH 30.1 (25.0-34.0) pg MCHC 33.8 (32.0-36.0) g/dL RDW Std Deviation 42.6 (36.4-46.3) fL RDW Coeff of Keke 13.1 (11.5-14.5) % Plt Count 174 (130-400) K/uL MPV 10.5 (9.4-12.4) fL Immature Gran % (Auto) 0.3 % Neut % (Auto) 72.6 % Lymph % (Auto) 19.9 % [place] % (Auto) 5.7 % Eos % (Auto) 1.2 % Baso % (Auto) 0.3 % Neut # (Auto) 4.67 (1.40-6.50) K/uL Lymph # (Auto) 1.28 (1.20-3.40) K/uL [place] # (Auto) 0.37 (0.11-0.59) K/uL Eos # (Auto) 0.08 (0.00-0.50) K/uL Baso # (Auto) 0.02 (0.00-0.20) K/uL Immature Gran # (Auto) 0.02 (0.01-0.20) K/uL PT 11.6 (9.0-12.0) Seconds INR 1.1 (0.9-1.1) Sodium 141 (136-145) mmol/L Potassium 4.1 (3.5-5.1) mmol/L Chloride 105 (98-107) mmol/L Carbon Dioxide 28 (21-32) mmol/L Anion Gap 8 (3-11) BUN 25 H (6-23) mg/dl Creatinine 1.67 H (0.6-1.4) mg/dl Est Cr Clr Drug Dosing 46.3 ml/min eGFR 43.49 BUN/Creatinine Ratio 15.0 (10-20) Glucose 170 H (70-99(Fasting)) mg/dl Calcium 9.5 (8.6-10.3) mg/dl Magnesium 1.2 L (1.7-2.4) mg/dl Total Bilirubin 0.6 (0.2-1.0) mg/dl AST 16 (13-39) U/L ALT 12 (7-52) U/L Alkaline Phosphatase 58 (34-104) U/L Troponin I High Sens 657.9 H* 609.2 H* (0-20) pg/ml Total Protein 7.1 (6.0-8.3) gm/dl Albumin 4.1 (3.4-5.0) gm/dl Globulin 3.0 (2.5-4.0) gm/dl Albumin/Globulin Ratio 1.4 (0.9-2) Lipase 26 (11-82) U/L Administered Medications Carbidopa/Levodopa (Carbidopa/Levodopa 25/100mg Tab) 1 tab PO DAILY@0600,1000,1400,1800,2200 [facility] Stop: 12/01/24 22:29 Last Admin: 11/01/24 23:36 Dose: 1 tab Documented By: PHUONG Magnesium Sulfate/Dextrose (Magnesium Sulfate / D5w) 1 gm in 100 mls @ 50 mls/hr IV Q2H [facility] Stop: 11/02/24 01:29 Last Admin: 11/01/24 23:10 Dose: 50 mls/hr Documented By: Infusion: 11/01/24 23:06 Dose: Infused Documented By: Admin: 11/01/24 21:39 Dose: 50 mls/hr Documented By: ANGELO Lactated Ringer's (Lr) 1,000 mls @ 125 mls/hr IV .Q8H [facility] Stop: 11/02/24 06:29 Last Admin: 11/01/24 23:11 Dose: 125 mls/hr Documented By: PHUONG Discontinued Medications Aspirin (Aspirin Chew 324 Mg) 324 mg PO NOW STA Stop: 11/01/24 20:19 Last Admin: 11/01/24 20:35 Dose: 324 mg Documented By: ANGELO Sodium Chloride (Nss) 1,000 mls @ 999 mls/hr IV .Q1H1M STA Stop: 11/01/24 19:54 Last Infusion: 11/01/24 20:00 Dose: Infused Documented By: Admin: 11/01/24 18:59 Dose: 999 mls/hr Documented By: ANGELO Imaging Data Radiologist's Impression: Chest X-Ray 11/01/24 19:50 Exam(s): XR CXR 1 VIEW EXAM: XR Chest, 1 View CLINICAL HISTORY: Reason for exam: HoTN. TECHNIQUE: Frontal view of the chest. COMPARISON: 08/10/2024 FINDINGS: Lungs: No consolidation. No overt edema. Pleural space: No pleural effusion. No pneumothorax. Heart: Unremarkable. No cardiomegaly. IMPRESSION: No acute cardiopulmonary abnormality. Electronically signed by: Rafael Melo MD 11/01/24 22:35 PM Discharge Plan Visit Data Chief Complaint: Hypotension Stated Complaint: HYPOTENSION ED Provider: Jovani Soto Discharge Problem: Elevated troponin Patient Disposition: Admitted As Inpatient Condition: Fair Discharge Instructions Interventions: ED Discharge Assessment Last Done: 11/01/24 22:26
[2024-11-01 19:12] LABS: Hematocrit (blood only) 36.4 % (42.0-52.0); Hemoglobin 12.3 g/dl (14.0-18.0); Immature Granulocytes # (auto) 0.02 K/uL (0.01-0.20); Immature Granulocytes % (auto) 0.3 %; Mean Corpuscular Hemoglobin 30.1 pg (25.0-34.0); Mean Corpuscular Volume 89.0 fL (80.0-100.0); Platelet Count 174 K/uL (130-400); RDW Standard Deviation 42.6 fL (36.4-46.3); Red Blood Count 4.09 M/uL (4.70-6.10); White Blood Count 6.44 K/ul (4.8-10.8)
[2024-11-01 19:29] LABS: Alanine Aminotransferase 12.0 U/L (7-52); Albumin Globulin Ratio 1.4 (0.9-2); Alkaline Phosphatase 58.0 U/L (34-104); Anion Gap 8.0 (3-11); Bilirubin,Total 0.6 mg/dl (0.2-1.0); Blood Urea Nitrogen 25.0 mg/dl (6-23); Calcium 9.5 mg/dl (8.6-10.3); Carbon Dioxide 28.0 mmol/L (21-32); Chloride 105.0 mmol/L (98-107); Creatinine Clr Calc Pharmacy 46.3 ml/min; Globulin 3.0 gm/dl (2.5-4.0); Glucose 170.0 mg/dl (70-99(Fasting)); Lipase 26.0 U/L (11-82); Potassium 4.1 mmol/L (3.5-5.1); Sodium 141.0 mmol/L (136-145); Total Protein 7.1 gm/dl (6.0-8.3)
[2024-11-01 19:39] LABS: INR 1.1 (0.9-1.1); Prothrombin Time 11.6 Seconds (9.0-12.0)
[2024-11-01] MEDS: ASPIRIN CHEW 324 MG PO STA (20:35)
[2024-11-01 21:26] LABS: Magnesium 1.2 mg/dl (1.7-2.4)
[2024-11-01] MEDS: MAGNESIUM SULFATE / D5W 1 GM/100 ML BAG IV SCH (21:39)
--- NOTE | 2024-11-01 21:50 | History & Physical Report ---
"Date of Service November 01, 2024 Assessment & Plan (1) Atrial flutter with rapid ventricular response: (2) ELIZABETH (acute kidney injury): (3) Hypomagnesemia: Plan 68-year-old male with PMH of paroxysmal atrial flutter s/p ablation, PD, HFmrEF, HLD, BPH, HTN, DMII, and spinal stenosis who presented on the 11/01 due to a flutter and hypotension. Patient had dobutamine stress test on 11/01 were he converted to Aflutter with HR up to 190s. Patient was started on Eliquis and instructed to take second dose of metoprolol at pm. He developed hypotension with systolic low as 60s. He states not taking the second dose of metoprolol. He denied any chest pain or SOB. Patient back to sinus rhythm at arrival to the ED. Hypotension resolved after fluid resuscitation. Patient will be admitted for further management and monitoring #A flutter with RVR/ Hypotension - Know history of Aflutter s/p ablation on 08/2024. Onset of symptoms today after dobutamine stress test - On arrival patient, patient on sinus rhythm SHIPPING AND RECEIVING COORDINATOR 109/69 - EKG: Normal sinus rhythm, new right bundle branch block - Patient chest pain free, no SOB - Hypotension resolved after bolus of NSS 1L -Lab remarkable for elevated troponins, peaked at 659, Low magnesium, Cre 1.67 - Cardiology consulted. aprec recommendations - continue metoprolol succinate 50 mg daily with hold parameters - Eliquis was restarted today by Dr. Meza earlier today, will continue Eliquis BID - Magnesium was replaced 2 gm - Labs A - continue telemetry #ELIZABETH | Hypomagnesemia |CKD Cr. 1.67 (baseline 1.10~) Normal potassium Magnesium replaced 2gm ons admission 1 L NSS given in ED LR 125 ml/hr Lab am #DM 2 - home sitagliptin-metformin on hold - Novalog added #Lumbar stenosis status post L5-S1 decompression and fusion Cont f/u with [facility]. Plan for surgical intervention #Parkinson's disease Continue carbidopalevodopa x5 per day #HLD Continue statin #BPH - alfuzosin hold due to hypotension - Can restarted tomorrow if BP remains stable DVT Prophylaxis: Eliquis History of Present Illness Primary Care Provider: RICH Jc 68-year-old male with PMH of paroxysmal atrial flutter s/p ablation, PD, HFmrEF, HLD, BPH, HTN, DMII, and spinal stenosis who presented on the 11/01 due to a flutter and hypotension. Patient had dobutamine stress test on 11/01 were he converted to Aflutter with HR up to 190s. Patient was started on Eliquis and instructed to take second dose of metoprolol at pm. He developed hypotension with systolic low as 60s. He states not taking the second dose of metoprolol. He denied any SOB, hypotension . Denied dizziness, lightheadedness. Denied nausea, vomiting abdominal pain, denied any leg edema. Allergies Allergy/AdvReac Type Severity Reaction Status Date / Time No Known Allergies Allergy Verified 11/08/24 10:16 Home Medications Medication Instructions Recorded Confirmed Type sitagliptin phosphate 50 1 tab PO BID 08/23/24 11/08/24 History mg-metformin 1,000 mg tablet atorvastatin 20 mg tablet 20 mg PO QPM #90 tabs 09/27/24 11/08/24 Rx alfuzosin 10 mg tablet,extended 10 mg PO QAM 11/01/24 11/08/24 History release 24 hr carbidopa 25 mg-levodopa 100 mg 1 tab PO 5XD 11/01/24 11/08/24 History tablet multivitamin with minerals-folic 1 tab PO DAILY 11/01/24 11/08/24 History acid 80 mcg chewable tablet (Centrum Adult 50 Plus) apixaban 5 mg tablet (Eliquis) 5 mg PO BID #60 tabs 11/02/24 11/08/24 Rx apixaban 5 mg tablet (Eliquis) 5 mg PO BID 11/08/24 11/08/24 History cholecalciferol (vitamin D3) 25 25 mcg PO DAILY 11/08/24 11/08/24 History mcg (1,000 unit) capsule (Vitamin D3) magnesium chloride 71.5 mg 71.5 mg PO DAILY 11/08/24 11/08/24 History (magnesium chloride) tablet,delayed release (Slow-Mag) metoprolol tartrate 25 mg tablet 25 mg PO BID #60 tabs 11/08/24 11/08/24 Rx Past Med/Surg History Problem List (Updated 11/02/24 @ 15:24 by Al Sood MD, PhD) Paroxysmal atrial flutter ELIZABETH (acute kidney injury) Hypomagnesemia (Acute) Demand ischemia Elevated troponin (Acute) Renal cyst, right Calcification of prostate Acute metabolic encephalopathy Diplopia Shock Hypotension Hyperkalemia Atrial flutter with rapid ventricular response (Acute) Mitral regurgitation Cardiomyopathy Atrial flutter CKD (chronic kidney disease) (Acute) Atrial flutter by electrocardiography (Acute) Spinal stenosis, lumbar region with neurogenic claudication Cervical pain (neck) Osteopenia Lumbar facet joint syndrome Sacroiliitis Kidney stones, calcium oxalate Vitamin D deficiency Tremor Parkinson disease Stenosis of cavernous portion of right internal carotid artery History of colon polyps Anemia Neurogenic claudication due to lumbar spinal stenosis Status post lumbar surgery L5-S1 Decompression and Fusion, L2-L5 Hardware Removal, Spinal Cord Monitoring, Application of Bone Morphogenetic Protein and Allograft - [place], Bilateral cataracts Left ventricular hypertrophy Echocardiogram 12/24/2018-LVEF 45-50 percent, severe inferolateral hypokinesis. Mid base to mid inferior hypokinesis. Echocardiogram 01/25/2019-mild concentric left ventricular hypertrophy with normal systolic function. Quijano treadmill score 6; met level achieved was 7 Hx of pyloric stenosis s/p surgical repair Type 2 diabetes mellitus NIDDM Sleep apnea inconclusive sleep study, no device prescribed Lumbar radiculopathy Dyslipidemia Carotid artery plaque Mild nonobstructive plaque noted on 2014 carotid doppler Chronic osteoarthritis Enlarged prostate with lower urinary tract symptoms (LUTS) Hypertension Medical History Hearing loss Obesity Surgical History H/O cardiac radiofrequency ablation History of lithotripsy History of non-cataract eye surgery History of cataract surgery History of back surgery Hx of colonoscopy History of partial knee replacement History of lumbar fusion History of gastric surgery Family History Father Coronary heart disease Myocardial infarction Diabetes Heart disease Sister Family history of gallbladder disease Diabetes Other Family history of kidney stones Denies family history of Ovarian cancer Prostate cancer Breast cancer Lung cancer Colorectal cancer Social History Smoking Status: Never smoker Second Hand Exposure: Yes (WHEN HE WAS WORKING); Do You Dip or Chew Tobacco: No; Hx Alcohol Use: No Hx Substance Use: No Preferred Language: Slovak Communication Ability: Effective Visual Impairment: No Limitations Hearing Ability: Normal Institute Director Required: No Beliefs That Will Affect Care: None marital status: Current Living Situation: Spouse Current Living Situation Comment: Home with spouse 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 How many Children do You have: 0 Feels Safe at Home: Yes Childhood Exposure to Second-Hand Smoke: No Diet: regular Diet Comment: regular caffeine: Yes during the past year weight has: remained stable Dental Care, Regularly: Yes Physical Activity Frequency: Other Seatbelt Use: sometimes Sunscreen Use: No Assistive Devices: Cane and Walker Review of Systems Review of Systems: as per hpi Physical Exam Constitutional: well developed and well nourished; no acute distress Eyes: PERRL, conjunctivae normal, anicteric sclerae Respiratory: normal respiratory effort, lungs clear to auscultation Cardiovascular: RRR, no murmur, no edema Gastrointestinal (Abdomen): normal bowel sounds, soft, nontender, no hep atosplenomegaly Musculoskeletal: no cyanosis or clubbing, extremities motor strength 5/5 Results & Data Results & Data Vital Signs (Past 12 Hours) Vital Signs Temp Pulse Resp BP Pulse Ox O2 Del Method 11/01/24 20:33 68 13 134/79 98 11/01/24 20:03 70 14 161/83 H 98 11/01/24 19:27 77 16 140/72 96 11/01/24 19:09 80 11 L 137/76 100 11/01/24 18:58 87 18 97 Room Air 11/01/24 18:57 81 17 97 Room Air 11/01/24 18:55 97 Room Air 11/01/24 18:48 81 11/01/24 18:38 36.2 C L 96 H 17 109/69 97 Room Air Code Status & VTE Plan VTE Prophylaxis Plan VTE Prophylaxis will be ordered: Yes Supervising Physician Co-Signing Physician Notes I personally saw and examined the patient. I independently reviewed the labs, EKG, imaging, problem list, medication list, past medical history and family history. I verified all rousseau points and agree with resident physician Dr Jessica Barfield MD with the following exceptions and/or additions: 69 year old male presents to the ER with hypotension after dobutamine stress echo in setting of atrial flutter with RVR. No converted to NSR and asymptomatic. O/E HS RRR, no murmurs, Chest CTAB, Abdo SNT A/P Paroxysmal atrial flutter / hypotension Caused by Dobutamine, currently asymptomatic, consult cardiology for ongoing recommendations. Restart on Eliquis, continue metoprolol succinate. Replace Mg. Resident Activity Tracking Resident Involvement: Resident Care Provided Care Provided: Adult Hospital Medicine"
[2024-11-01] MEDS ORDERED: GLUCAGON FOR INJ 1 MG VIAL SQ PRN (22:30)
[2024-11-01] MEDS ORDERED: GLUCOSE 10 TAB/TUBE PO PRN (22:30)
[2024-11-01] MEDS ORDERED: DEXTROSE 50% 50 ML SYRINGE IV PRN (22:30)
[2024-11-01] MEDS ORDERED: POLYETHYLENE (MIRALAX) 17 GM PACK PO PRN (22:30)
[2024-11-01] MEDS ORDERED: ONDANSETRON INJ 2 MG/ML 2 ML VIAL IV PRN (22:30)
[2024-11-01] MEDS ORDERED: CARBOHYDRATES FOR HYPOGLYCEMIA PO PRN (22:30)
[2024-11-01] MEDS ORDERED: MELATONIN 3 MG TAB PO PRN (22:30)
[2024-11-01] MEDS ORDERED: GLUCOSE 40% GEL 15 GM TUBE PO PRN (22:30)
[2024-11-01] MEDS ORDERED: ACETAMINOPHEN 325 MG TAB PO PRN (22:30)
--- NOTE | 2024-11-01 22:36 | XRay Report ---
Exam(s): XR CXR 1 VIEW EXAM: XR Chest, 1 View CLINICAL HISTORY: Reason for exam: HoTN. TECHNIQUE: Frontal view of the chest. COMPARISON: 08/10/2024 FINDINGS: Lungs: No consolidation. No overt edema. Pleural space: No pleural effusion. No pneumothorax. Heart: Unremarkable. No cardiomegaly. IMPRESSION: No acute cardiopulmonary abnormality. Electronically signed by: Rafael Melo MD 11/01/24 22:35 PM
[2024-11-01 22:49] VITALS: RESP 18
[2024-11-01] MEDS: LACTATED RINGER'S 1,000 ML IV SCH (23:11)
[2024-11-01] MEDS: CARBIDOPA/LEVODOPA 25/100MG TAB PO SCH (23:36)
[2024-11-02 06:11] LABS: Hematocrit (blood only) 33.1 % (42.0-52.0); Hemoglobin 10.9 g/dl (14.0-18.0); Mean Corpuscular Hemoglobin 29.7 pg (25.0-34.0); Mean Corpuscular Volume 90.2 fL (80.0-100.0); Platelet Count 149 K/uL (130-400); RDW Standard Deviation 43.7 fL (36.4-46.3); Red Blood Count 3.67 M/uL (4.70-6.10); White Blood Count 6.45 K/ul (4.8-10.8)
[2024-11-02 06:28] LABS: Alanine Aminotransferase 3.0 U/L (7-52); Albumin Globulin Ratio 1.7 (0.9-2); Alkaline Phosphatase 46.0 U/L (34-104); Anion Gap 4.0 (3-11); Bilirubin,Total 0.4 mg/dl (0.2-1.0); Blood Urea Nitrogen 22.0 mg/dl (6-23); Calcium 8.4 mg/dl (8.6-10.3); Carbon Dioxide 29.0 mmol/L (21-32); Chloride 109.0 mmol/L (98-107); Creatinine Clr Calc Pharmacy 65.5 ml/min; Globulin 2.2 gm/dl (2.5-4.0); Glucose 123.0 mg/dl (70-99(Fasting)); Magnesium 1.4 mg/dl (1.7-2.4); Potassium 3.9 mmol/L (3.5-5.1); Sodium 142.0 mmol/L (136-145); Total Protein 6.0 gm/dl (6.0-8.3)
[2024-11-02 07:00] LABS: INR 1.1 (0.9-1.1); Prothrombin Time 11.7 Seconds (9.0-12.0)
[2024-11-02] MEDS: MAGNESIUM SULFATE / D5W 1 GM/100 ML BAG IV SCH (08:22)
[2024-11-02] MEDS: INSULIN ASPART PER UNIT CHARGE SC SCH (08:22)
[2024-11-02] MEDS: APIXABAN 5 MG TABLET PO SCH (08:23)
[2024-11-02] MEDS: METOPROLOL SUCC 50MG EXT REL TAB PO SCH (08:23)
[2024-11-02] MEDS: MAGNESIUM CHLORIDE W/CALCIUM 64MG DELAYED REL TAB PO SCH (08:23)
[2024-11-02] MEDS: CEROVITE ADV FORMULA TAB PO SCH (08:23)
[2024-11-02 11:00] LABS: Appearance Urine Clear (Clear); Glucose Urine UA Negative (Negative)
[2024-11-02 11:08] VITALS: BP 196/98; TEMP 98.2; O2SAT 97
[2024-11-02 11:58] VITALS: PULSE 70
--- NOTE | 2024-11-02 14:22 | Cardiology Consultation ---
Date of Consultation November 02, 2024 Assessment & Plan (1) Elevated troponin: 2. Abnormal stress test 3. Atrial fibrillation/flutterpost AFL ablation, recurrence of arrhythmia with dobutamine 11/2024 4. Recovered cardiomyopathy 5. Hypertension 6. Type 2 diabetes 7. Anemia 8. Parkinson's 9. Spinal stenosis considering additional back surgery Here with reported asymptomatic hypotension at home. Initial labs consistent with some degree of dehydration. Also likely some effect from dobutamine/Toprol at stress test on top of baseline Parkinson's. No additional hypotension since at hospital and hypertensive today. Found to have elevated troponin which is downtrending. He has remained chest p ain-free and electrically stable on telemetry. Suspect patient's troponin is secondary to demand in the setting of dobutamine induced atrial fibrillation with RVR with heart rates in the 190s for more than an hour. Reviewed patient's stress test images. Does appear to have an inferior/inferolateral wall motion abnormality which worsens with stress but findings difficult to interpret in the setting of arrhythmia at time of image acquisition. Discussed stress test findings with patient and his primary cardiology manager Dr. Meza. Agree that findings are relatively low risk and at worst would only represent single-vessel disease. As asymptomatic feel patient can safely proceed with planned back surgery without additional cardiac testing. Otherwise feel patient okay for discharge today. If BP remains elevated can add prior low-dose amlodipine. Continue current Toprol-XL, Eliquis. Follow-up with cardiology as scheduled. History of Present Illness Attending Physician: Al Sood MD, PhD History of Present Illness Mr. Wilson is a very pleasant 69-year-old man with a history of atrial flutter post ablation, recovered cardiomyopathy who was admitted with asymptomatic hypotension after dobutamine stress echo. Patient primarily follows with Dr. Meza. This spring had been dealing with recurrent atrial flutter with RVR and in that setting noted to have mildly reduced LV function with a EF of 40 to 45% 06/2024. Eventually underwent successful AFL ablation 08/16/2024. Since that time has had no recurrence of prior AFL symptoms and EF 55% with mild hypokinesis of inferolateral wall on echo 08/2024. Patient limited at baseline due to his back issues. States he can walk around his home and even mow the lawn but is usually significantly hunched over with attempting to walk. Denies any chest pain, significant dyspnea with exertion. Additional back surgery is being considered. For preoperative cardiac assessment prior to possible back surgery underwent dobutamine stress echo yesterday. With dobutamine developed what appeared to be atrial fibrillation/flutter with RVR with heart rates up to the 190s. Heart rate persisted for >1-hour and denied significant symptoms. With dobutamine hypertensive to 210s over 130s. Was given 15 mg of Lopressor and restarted on Eliquis. At home spontaneously converted to sinus rhythm. He remained completely asymptomatic but noted that his blood pressures were lower at home down to 70s. On arrival to the ED normotensive. ECG showed sinus rhythm with right bundle branch block but no ST abnormalities. Chest x-ray clear. HS TropI initially 657 and downtrending. +2 L overnight and has remained asymptomatic. No arrhythmia on telemetry. Hypertensive this morning to 190s. Past medical history: Parkinson's, [id number] diabetes, hypertension, dyslipidemia, anemia, spinal stenosis, prior lumbar decompression/fusion. Allergies Allergy/AdvReac Type Severity Reaction Status Date / Time No Known Allergies Allergy Verified 11/01/24 20:19 Home Medications Medication Instructions Recorded Confirmed Type sitagliptin phosphate 50 1 tab PO BID 08/23/24 11/01/24 History mg-metformin 1,000 mg tablet atorvastatin 20 mg tablet 20 mg PO QPM #90 tabs 09/27/24 11/01/24 Rx metoprolol succinate 50 mg 50 mg PO DAILY #30 tabs 10/28/24 11/01/24 Rx tablet,extended release 24 hr alfuzosin 10 mg tablet,extended 10 mg PO QAM 11/01/24 11/01/24 History release 24 hr carbidopa 25 mg-levodopa 100 mg 1 tab PO 5XD 11/01/24 11/01/24 History tablet cholecalciferol (vitamin D3) 25 0 mcg PO DAILY 11/01/24 11/01/24 History mcg (1,000 unit) capsule (Vitamin D3) magnesium chloride 71.5 mg 71.5 mg PO QAM 11/01/24 11/01/24 History (magnesium chloride) tablet,delayed release (Slow-Mag) multivitamin with minerals-folic 1 tab PO DAILY 11/01/24 11/01/24 History acid 80 mcg chewable tablet (Centrum Adult 50 Plus) apixaban 5 mg tablet (Eliquis) 5 mg PO BID #60 tabs 11/02/24 Rx Patient History Medical History Hearing loss Obesity Surgical History H/O cardiac radiofrequency ablation History of lithotripsy History of non-cataract eye surgery History of cataract surgery History of back surgery Hx of colonoscopy History of partial knee replacement History of lumbar fusion History of gastric surgery Family History Father Coronary heart disease Myocardial infarction Diabetes Heart disease Sister Family history of gallbladder disease Diabetes Other Family history of kidney stones Denies family history of Ovarian cancer Prostate cancer Breast cancer Lung cancer Colorectal cancer Social History Smoking Status: Never smoker Second Hand Exposure: Yes (WHEN HE WAS WORKING); Do You Dip or Chew Tobacco: No; Hx Alcohol Use: No Hx Substance Use: No Preferred Language: Swiss Communication Ability: Effective Visual Impairment: No Limitations Hearing Ability: Normal Website Designer Required: No Beliefs That Will Affect Care: None marital status: Current Living Situation: Spouse Current Living Situation Comment: Home with spouse 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 How many Children do You have: 0 Feels Safe at Home: Yes Childhood Exposure to Second-Hand Smoke: No Diet: regular Diet Comment: regular caffeine: Yes during the past year weight has: remained stable Dental Care, Regularly: Yes Physical Activity Frequency: Other Seatbelt Use: sometimes Sunscreen Use: No Assistive Devices: Cane and Glasses Review of Systems Review of Systems: All systems reviewed & are unremarkable except as noted in HPI & below Physical Exam Physical Exam: General: Comfortable HEENT: Sclerae anicteric Lungs: Clear to auscultation bilaterally Cardiac: Regular rate and rhythm, 2 out of 6 holosystolic murmur at the apex Vascular: 2+ radial, no carotid bruits Abdomen: Soft, nontender Extremities: Well perfused, no peripheral edema Neuro: Resting tremor in upper extremities noted Psych: Alert orient x3, normal affect and mood Results & Data Vital Signs (Past 12 Hours) Vital Signs Temp Pulse Pulse Resp BP Pulse Ox O2 Del Method 11/02/24 11:06 98.2 F 64 18 196/98 H 97 Room Air 11/02/24 07:45 70 11/02/24 07:31 97.7 F 69 18 203/93 H 99 Room Air 11/02/24 03:41 97.5 F L 69 18 139/83 99 Room Air PG Care Time/CCT Total # of Minutes Spent Total Time Spent with Patient: Total time spent is greater than 50% in coordination of care (as documented) at patient's floor/unit and/or counseling patient: Coding Level of Care Code 95204 INT INP/OBS CARE 2/55MIN Diagnoses Elevated troponin R79.89
--- NOTE | 2024-11-02 14:52 | Electrocardiogram Report ---
Test Reason : Blood Pressure : */* mmHG Vent. Rate : 85 BPM Atrial Rate : 85 BPM P-R Int : 174 ms QRS Dur : 144 ms QT Int : 386 ms P-R-T Axes : 54 -21 12 degrees QTcB Int : 459 ms Normal sinus rhythm Right bundle branch block Abnormal ECG When compared with ECG of 07-Sep-2024 11:11, Right bundle branch block is now Present Confirmed by Jos Bowles ([id number]) on 11/02/2024 2:52:31 PM Referred By: REFERRED SELF Confirmed By: Jos Bowles
--- NOTE | 2024-11-02 14:58 | Discharge Summary ---
Discharge Summary Date of Service November 02, 2024 Principal Dx & Hospital Course #1 = Principal Diagnosis (1) Paroxysmal atrial flutter: 1. Paroxysmal atrial flutter with RVR and hypotension, both of unclear etiology, but I surmise that (a) paroxysmal atrial flutter was probably due to acute hypomagnesemia with admission Mg 1.2 mg/dL (11/01/2024, 6:55pm)-on-chronic hypomagnesemia with baseline Mg range from 1.1 mg/dL (05/11/2023, 9:01am to 1.3 mg/dL (10/11/2024, 8:22am), on magnesium chloride 71.5mg PO qam at home, and (b) hypotension was probably due to paroxysmal atrial flutter. On the other hand, etiology of acute hypomagnesemia and chronic hypomagnesemia remains unclear; patient awaits U/A (11/02/2024, 10:45am) to rule out acute UTI as a proximal cause for patient's acute hypomagnesemia, if not chronic hypomagnesemia. To treat paroxysmal atrial flutter with RVR and hypotension: Patient subsequently reports that he received metoprolol 15mg IV x 1 dose to control his HR, but that his BP subsequently declined transiently to systolic 60s mm Hg, thereby preventing patient from receiving a second dose of metoprolol IV on 11/01/2024. Patient subsequently reports that he received 1 liter of 0.9% NS @ 999 mL/hr (11/01/2024, 6:59pm), followed by 1 liter of lactated Ringers @ 125 mL/hr (11/01/2024, 11:11pm), to increase patient's BP, and patient's BP increased to normal and beyond normal, ranging from 109/69 (11/01/2024, 6:38pm) to 196/98 (11/02/2024, 11:06am)(last recorded BP prior to hospital discharge home on 11/02/2024). Patient subsequently reports that he received metoprolol succinate XL 50mg PO x 1 dose (11/02/2024, 8:23am), along with eliquis 5mg PO bid x 1 dose (11/02/2024, 8:23am). Patient subsequently reports that his paroxysmal atrial flutter with RVR converted back to NSR overnight on patient monitor. Patient remains completely asymptomatic, and patient was maintained on metoprolol succinate XL 50mg PO daily and eliquis 5mg PO bid while in [facility] Tele bed #S244-1. Patient will continue this same regimen of metoprolol succinate XL 50mg PO daily and eliquis 5mg PO bid on hospital discharge home on 11/02/2024. Of note, patient reports that he already takes metoprolol succinate XL 50mg PO daily at home, and hence, patient does not require/need a prescription for this medication on hospital discharge home on 11/02/2024. Of note, patient reports that he does not take eliquis 5mg PO bid at home, and hence, patient does require/need a prescription for this medication on hospital discharge home on 11/02/2024. To this end, patient's [id number], [address] [place] [address], received an electronic prescription on 11/02/2024, prior to hospital discharge home on 11/02/2024, for: a. eliquis 5mg PO bid, #60 tablets, no refills. Of final note, patient reports that he will see his EPS / CARDS Dr. Leighton Meza within 5-7 days of hospital discharge, for routine follow up visit in regards to his paroxysmal atrial flutter with RVR. (2) Demand ischemia: 2. Acute type II NSTEMI with troponin #1 657.9 pg/mL (11/01/2024, 6:55pm), troponin #2 609.2 pg/mL (11/01/2024, 8:39pm), troponin #3 354.2 pg/mL (11/02/2024, 5:25am), due to demand ischemia, which in turn, is due to paroxysmal atrial flutter with RVR. Of note, patient reports that he felt fine throughout/after performance of dobutamine stress test (11/01/2024, 9:42am with [facility] EPS/CARDS Dr. Leighton Meza), and emphatically denied any complaints at all, including any chest pain, chest pressure, chest tightness, chest heaviness, palpitations, pleurisy, SOB, JACK, cough, wheeze, nausea, vomiting, diarrhea, abdominal pain, fevers, chills, diaphoresis, etc., but that the dobutamine stress test was terminated before it could be completed, as (a) patient's HR exceeded target heart rate, with patient's HR increasing to a maximal HR 193 bpm, which was 129% of patient's maximally predicted HR, and (b) patient's heart rhythm was consistent with paroxysmal atrial flutter). Hence, I opted to observe this laboratory anomaly without further evaluation/testing while patient remained in [facility] Tele bed #S244-1. (3) ELIZABETH (acute kidney injury): 3. Acute kidney injury with admission creatinine 1.67 mg/dL (11/01/2024, 6:55pm). cf., discharge creatinine 1.17 mg/dL (11/02/2024, 5:25am). cf., CKD stage II with baseline creatinine range, 1.18 - 1.33 mg/dL (08/23/2024 - 10/11/2024). Etiology of acute kidney injury remains unclear, but was probably due to acute dehydration. Patient subsequently reports that he received 1 liter of 0.9% NS @ 999 mL/hr (11/01/2024, 6:59pm), followed by 1 liter of lactated Ringers @ 125 mL/hr (11/01/2024, 11:11pm), to increase patient's BP from systolic BP 60s mm Hg (during performance of dobutamine stress test on 11/01/2024, 9:42am with [facility] EPS/CARDS Dr. Leighton Meza), and patient's BP increased to normal and beyond normal, ranging from 109/69 (11/01/2024, 6:38pm) to 196/98 (11/02/2024, 11:06am)(last recorded BP prior to hospital discharge home on 11/02/2024). In addition, patient's acute kidney injury RESOLVED with post-hydration creatinine 1.17 mg/dL (11/02/2024, 5:25am). Of final note, patient underwent U/A with microscopy (11/02/2024, 10:45am) to rule out acute UTI as a potential etiology for patient's acute kidney injury. Subsequently, U/A with microscopy (11/02/2024, 10:45am) was negative for LE, nitrites, and hence, patient did not/does not have acute UTI while in [facility] from admission date 11/01/2024 through discharge date 11/02/2024. (4) Hypomagnesemia: 4. Acute hypomagnesemia with admission Mg 1.2 mg/dL (11/01/2024, 6:55pm)-on-chronic hypomagnesemia with baseline Mg range from 1.1 mg/dL (05/11/2023, 9:01am to 1.3 mg/dL (10/11/2024, 8:22am), on magnesium chloride 71.5mg PO qam at home. cf., post-supplement Mg 1.4 mg/dL (11/02/2024, 5:25am). cf., discharge Mg 2.2 mg/dL (11/02/2024, 2:15pm). Patient received magnesium sulfate 1g IV x 2 doses (11/01/2024, 9:39pm, 11:10pm), and acute hypomagnesemia PERSISTED, as noted above. Patient subsequently received magnesium sulfate 1g IV x 4 doses (11/02/2024, 8:22am, 10:26am, 11:37am, 1:04pm), and acute hypomagnesemia RESOLVED, as noted above. Etiology of hdcud-ct-pphtyna hypomagnesemia remains unclear, but was not due to acute UTI as patient underwent U/A with microscopy (11/02/2024, 10:45am) to rule out acute UTI as a potential etiology for patient's acute hypomagnesemia via acute UTI-mediated magne-uresis. Subsequently, U/A with microscopy (11/02/2024, 10:45am) was negative for LE, nitrites, and hence, patient did not/does not have acute UTI while in [facility] from admission date 11/01/2024 through discharge date 11/02/2024. Of final note, patient reports that he normally takes magnesium chloride (Slow- Mag) 71.5mg PO qam at home to maintain/restore his magnesium levels to normal magnesium levels on a daily basis. However, I informed him that there are other formulations of magnesium, namely, magnesium glycinate, that are more highly absorbed in the gut, than magnesium chloride. The rationale for the higher absorption/bioavailability of magnesium glycinate, compared to magnesium chloride lies in the fact that magnesium glycinate is an organic salt of glycine, whereas magnesium chloride is an inorganic salt of hydrochloric acid, and its absorption is directly impacted by gastric pH. Magnesium glycinate is absorbed independently of gastric pH. Moreover, patient reports that he already has a supply of magnesium glycinate at home, and that he will start taking magnesium glycinate 420mg PO daily, instead of his home-scheduled / current magnesium chloride (Slow-Mag) 71.5mg PO qam, starting on 11/02/2024 pm. Admission HPI Per Admitting Provider 68 years old male with PMH of FULL CODE @ home, overweight with BMI 28.6 (height 177.8 cm; weight 90.3 kg), hyperlipidemia on atorvastatin 20mg PO qpm, BPH on alfuzosin 10mg PO qam, Parkinson's disease x 2 years, now with mild right hand tremor at rest that extinguishes with voluntary movement, on sinemet 1 tablet PO q5 times a day (6:00am, 10:00am, 2:00pm, 6:00pm, 10:00pm), non-insul in dependent DM2 with HbA1c 7.5% (08/23/2024, 10:54am), on sitagliptin 50mg - metformin 1000mg PO bid, CKD stage II with baseline creatinine range, 1.18 - 1.33 mg/dL (08/23/2024 - 10/11/2024), HTN on metoprolol SR 50mg PO daily, and paroxysmal atrial flutter s/p direct current cardioversion (08/10/2024, 9:13am [facility] CARDS Dr. Franki Guzman), s/p radiofrequency ablation of SVT and complete electrophysiologic testing including pacing of the left atrium via the coronary sinus, arrhythmia induction, three-dimensional electroanatomical mapping (08/16/2024, 11:06am, [facility] EPS/CARDS Dr. Leighton Meza), and chronic hypomagnesemia with baseline Mg range from 1.1 mg/dL (05/11/2023, 9:01am to 1.3 mg/dL (10/11/2024, 8:22am), on magnesium chloride 71.5mg PO qam at home. Patient subsequently underwent elective, pre-op testing with dobutamine stress test on 11/01/2024, 9:42am with [facility] EPS/CARDS Dr. Leighton Meza. Patient subsequently reports that he felt fine throughout/after performance of dobutamine stress test, and emphatically denied any complaints at all, including any chest pain, chest pressure, chest tightness, chest heaviness, palpitations, pleurisy, SOB, JACK, cough, wheeze, nausea, vomiting, diarrhea, abdominal pain, fevers, chills, diaphoresis, etc., but that the dobutamine stress test was term inated before it could be completed, as (a) patient's HR exceeded target heart rate, with patient's HR increasing to a maximal HR 193 bpm, which was 129% of patient's maximally predicted HR, and (b) patient's heart rhythm was consistent with paroxysmal atrial flutter). Patient subsequently reports that he received metoprolol 15mg IV x 1 dose to control his HR, but that his BP subsequently declined transiently to systolic 60s mm Hg, thereby preventing patient from receiving a second dose of metoprolol IV on 11/01/2024. Patient subsequently reports that he received 1 liter of 0.9% NS @ 999 mL/hr (11/01/2024, 6:59pm), followed by 1 liter of lactated Ringers @ 125 mL/hr (11/01/2024, 11:11pm), to increase patient's BP, and patient's BP returned to normal. Patient subsequently reports that he received metoprolol succinate XL 50mg PO x 1 dose (11/02/2024, 8:23am), along with eliquis 5mg PO bid x 1 dose (11/02/2024, 8:23am). Patient subsequently was admitted to the inpatient hospitalist service @ [facility] on 11/01/2024 with the following diagnoses: 1. Paroxysmal atrial flutter with RVR and hypotension, both of unclear etiology, but I surmise that (a) paroxysmal atrial flutter was probably due to acute hypomagnesemia with admission Mg 1.2 mg/dL (11/01/2024, 6:55pm)-on-chronic hypomagnesemia with baseline Mg range from 1.1 mg/dL (05/11/2023, 9:01am to 1.3 mg/dL (10/11/2024, 8:22am), on magnesium chloride 71.5mg PO qam at home, and (b) hypotension was probably due to paroxysmal atrial flutter. On the other hand, etiology of acute hypomagnesemia and chronic hypomagnesemia remains unclear; patient awaits U/A (11/02/2024, 10:45am) to rule out acute UTI as a proximal cause for patient's acute hypomagnesemia, if not chronic hypomagnesemia. 2. Acute type II NSTEMI with troponin #1 657.9 pg/mL (11/01/2024, 6:55pm), troponin #2 609.2 pg/mL (11/01/2024, 8:39pm), troponin #3 354.2 pg/mL (11/02/2024, 5:25am), due to demand ischemia, which in turn, is due to paroxysmal atrial flutter with RVR. 3. Acute kidney injury with admission creatinine 1.67 mg/dL (11/01/2024, 6:55pm). 4. Acute hypomagnesemia with admission Mg 1.2 mg/dL (11/01/2024, 6 :55pm)-on-chronic hypomagnesemia with baseline Mg range from 1.1 mg/dL (05/11/2023, 9:01am to 1.3 mg/dL (10/11/2024, 8:22am), on magnesium chloride 71.5mg PO qam at home. Discharge Exam Constitutional General: Comfortable, cooperative, coherent. Wide awake and alert. Not confused, lethargic, or obtunded. Patient speaks in complete, fluent, and articulate sentences without pause, interruption, cough, or wheeze. HEENT: Normocephalic, atraumatic. Pupils equally round and reactive to light. No nystagmus, gaze paresis, anisocoria, miosis, mydriasis, hyphema, scleral injection, conjunctivitis, or pterygium. No otorrhea. No pharyngeal erythema, edema, or discharge. Neck: Supple, no stridor, bruit, goiter, or hepato-jugular reflux. Jugular venous pressure is estimated to be 3 cm above the sternal angle of Ruiz, which in turn, is 5 cm above the level of the right atrium; with jugular venous pressure estimated to be 8 cm, then, there is no jugular venous distention on 11/02/2024. Lymphatics: No cervical (anterior/posterior), supraclavicular, infraclavicular, axillary, epitrochlear, or inguinal adenopathy. Chest: Symmetric rise and fall with respirations. Non-tender to palpation. Lungs: Clear to auscultation and percussion. No audible expiratory wheeze, egophony, pectoriloquy, increase in tactile fremitus, or flatness/dullness to percussion at the bases. Heart: RRR. S1 and S2 noted. No S3 or S4 summation gallop. No tripartite friction rub. Grade II/ early systolic murmur @ LLSB without radiation to the carotids, axilla, or back, and which remains invariant in regards to the respiratory cycle. Abdomen: Soft, non-tender, non-distended. No rebound, guarding, Wood's sign, or organomegaly. Bowel sounds auscultated in all 4 quadrants. Extremities: No clubbing, cyanosis, or edema in upper extremities or lower extremities bilaterally. 2+ pedal pulses bilaterally. Skin: No decubitus ulcer or enanthem. Genito-urinary: No urethral discharge. No simms catheter. Neurology: Alert and oriented in regards to person, place, time, and situation. DTR+. 5/5 motor strength in all 4 extremities, both proximally and distally. No myoclonus, tremors, or tics. Psychiatry: No homicidal ideation. No suicidal ideation. No flat affect; smiles appropriately. Discharge Plan Discharge Items Patient Disposition: Home - Self-Care Reason For Visit: AFLUTTER,HYPOTENSION Discharge Diagnosis: 1. Paroxysmal atrial flutter with RVR and hypotension, of unclear etiology, but probably due to acute hypomagnesemia with admission Mg 1.2 mg/dL (11/01/2024, 6:55pm)-on-chronic hypomagnesemia with baseline Mg range from 1.1 mg/dL (05/11/2023, 9:01am to 1.3 mg/dL (10/11/2024, 8:22am), on magnesium chloride 71.5mg PO qam at home. 2. Acute type II NSTEMI with troponin #1 657.9 pg/mL (11/01/2024, 6:55pm), troponin #2 609.2 pg/mL (11/01/2024, 8:39pm), troponin #3 354.2 pg/mL (11/02/2024, 5:25am), due to demand ischemia, which in turn, is due to paroxysmal atrial flutter with RVR. Condition on Discharge: Fair Activity: Resume your previous activity Lifting: Gradually increase as tolerated Bathing: No limitations Sexual Activity: When tolerated Exercise/Sports: Gradually increase as tolerated Driving/Machine Use: No limitations Weightbearing: Full weightbearing Non-emergency contact: Primary Care Provider Call non-emergency contact if: you have any medication questions Follow-up/Referrals: Dk North CRNP [Primary Care Provider] - 11/08/24 10:20 am (Hospital follow up on November 08 at 10:20 am.) Diet: Carb Consistent or DM2 and Heart Healthy Addtl Attending Provider Instructions: See your PCP RICH Sebastian, within 5-7 days of hospital discharge. Pending Studies at Discharge: Yes Studies:: See your PCP RICH Sebastian, for repeat magnesium level testing within 5-7 days of hospital discharge. In the interim, resume your home-scheduled magnesium glycinate 420mg PO daily to restore your magnesium levels back to normal. See your EPS / CARDS Dr. Leighton Meza within 5-7 days of hospital discharge, for routine follow up evaluation of paroxysmal atrial flutter with RVR. Stand-Alone Forms: My [employer], Smoking Cessation Medications and DC Order Prescriptions: New Eliquis 5 mg Tablet 5 mg PO BID Qty: 60 0RF Continued atorvastatin 20 mg tablet 20 mg PO QPM Qty: 90 3RF metoprolol succinate 50 mg tablet extended release 24 hr 50 mg PO DAILY Qty: 30 1RF sitagliptin phos-metformin 50-1,000 mg tablet 1 tab PO BID cholecalciferol (vitamin D3) [Vitamin D3] 25 mcg (1,000 unit) Capsule 0 mcg PO DAILY Rx Instructions: PT UNSURE OF STRENGTH Centrum Adult 50 Plus 80 mcg Tablet,Chewable 1 tab PO DAILY carbidopa-levodopa 25-100 mg tablet 1 tab PO 5XD Rx Instructions: 1 tab PO at 6 am, 10 am, 2 pm and 6 pm and 10 pm. alfuzosin 10 mg tablet extended release 24 hr 10 mg PO QAM Slow-Mag 71.5 mg tablet,delayed release (DR/EC) 71.5 mg PO QAM Discharge Orders: Discharge Order (Routine); Ordered 11/02/24 Ordered By: Al Sood Admission Data Admit Date/Time: 11/01/24 21:27 Attending Provider: Al Sood Admit Provider: Kris Olvera Primary Care Provider: Dk [facility] Other Providers: Leighton Meza; Kris Olvera Hospital Stay Data Consultations 11/01/24 20:55 Consult Cardiology Routine 11/01/24 20:56 ED Decision to Admit Stat Pending Results Patient Have Any Pending Studies at Discharge: Yes Discharge Instructions Given to Patient (Per Discharging Provider) See your PCP RICH Sebastian, within 5-7 days of hospital discharge. Total Time Total Time Spent Total Time Spent (In Minutes): 39 minutes. Of this time period, 19 minutes were spent in coordinating patient's discharge. Coding Level of Care Code 38429 INP/OBS DISCH >30 MIN Diagnoses Paroxysmal atrial flutter I48.92 Demand ischemia I24.89 ELIZABETH (acute kidney injury) N17.9 Hypomagnesemia E83.42
--- NOTE | 2024-11-02 15:07 | Electrocardiogram Report ---
Test Reason : Blood Pressure : */* mmHG Vent. Rate : 75 BPM Atrial Rate : 75 BPM P-R Int : 198 ms QRS Dur : 150 ms QT Int : 428 ms P-R-T Axes : 72 -18 25 degrees QTcB Int : 477 ms Normal sinus rhythm Right bundle branch block Abnormal ECG When compared with ECG of 01-Nov-2024 18:45, (unconfirmed) No significant change was found Confirmed by Jos Bowles ([id number]) on 11/02/2024 3:06:58 PM Referred By: REFERRED SELF Confirmed By: Jos Bowles
[2024-11-02] MEDS ORDERED: ATORVASTATIN 20 MG TAB PO SCH (21:00)
--- NOTE | 2024-11-09 15:57 | Billing Data ---
Date of Service November 01, 2024 Coding Level of Care Code 70605 INT INP/OBS CARE
== END 2024-11-02 15:00 | disposition home or self-care (01) | DRG 281 ==
LOC: ED 18:35 → SUATTDRO 21:27 → INTOOBSV 21:27 → 2S 21:36
DX: Z79.899 Other long term (current) drug therapy; I95.9 Hypotension, unspecified; M48.061 Spinal stenosis, lumbar region without neurogenic claudication; I21.A1 Myocardial infarction type 2; Z79.84 Long term (current) use of oral hypoglycemic drugs; N18.2 Chronic kidney disease, stage 2 (mild); E11.22 Type 2 diabetes mellitus with diabetic chronic kidney disease; E83.42 Hypomagnesemia; Z98.890 Other specified postprocedural states; Z86.718 Personal history of other venous thrombosis and embolism; I48.92 Unspecified atrial flutter; I24.89 Other forms of acute ischemic heart disease; G20.A1 Parkinson's disease without dyskinesia, without mention of fluctuations; I12.9 Hypertensive chronic kidney disease with stage 1 through stage 4 chronic kidney disease, or unspecified chronic kidney disease; N17.9 Acute kidney failure, unspecified; N40.0 Benign prostatic hyperplasia without lower urinary tract symptoms